=== PATIENT | female | born 1940 | race Caucasian/White ===

== ENCOUNTER 2016-12-02 21:14 | Inpatient (IN) | payer MEDICARE, OTHER ==
[~2016-12-02] VITALS: Ht 149.9 cm; Wt 55.8 kg
[2016-12-02] MEDS ORDERED: CLON1TAB4 PO (21:43)
[2016-12-02] MEDS ORDERED: TRAM50TA2 PO (21:44)
[2016-12-02] MEDS ORDERED: ENAL20TA70 PO (21:44)
[2016-12-02] MEDS ORDERED: EZET1TAB31 PO (21:44)
[2016-12-02] MEDS ORDERED: GEMF600T3 PO (21:44)
[2016-12-02] MEDS ORDERED: IBUP-1957 PO (21:44)
[2016-12-02] MEDS ORDERED: QUET200T PO (21:44)
[2016-12-02 21:55] LABS: BASOPHILS % (AUTO) 0.4 % (0.0-2.0); EOSINOPHILS # (AUTO) 0.1 K/uL (0.0-0.7); EOSINOPHILS % (AUTO) 1.1 % (0.0-7.0); HEMATOCRIT 31.7 % (37-47); HEMOGLOBIN 10.4 G/DL (12.0-16.0); LYMPHOCYTES # (AUTO) 0.6 K/UL (0.8-4.8); LYMPHOCYTES % (AUTO) 8.6 % (20.5-51.5); MEAN CORPUSCULAR HEMOGLOBIN 31.8 UUG (27.0-31.0); MEAN CORPUSCULAR HGB CONC 33 g/dL (32.0-37.0); MEAN CORPUSCULAR VOLUME 96.5 FL (81.0-99.0); MONOCYTES # (AUTO) 0.4 K/UL (0.1-1.30); MONOCYTES % (AUTO) 5.7 % (0.0-11.0); NEUTROPHILS % (AUTO) 84.2 % (38.5-71.5); PLATELET COUNT (AUTO) 182 K/UL (150-450); RED BLOOD CELL COUNT(AUTO) 3.28 MIL/UL (4.2-5.4); WHITE BLOOD COUNT (AUTO) 7.1 K/UL (4.0-11.2)
[2016-12-02 21:59] LABS: CARBON DIOXIDE 28 mmol/L (21-32); CHLORIDE 104 mmol/L (98-107); GLUCOSE 137 mg/dL (74-106); UREA NITROGEN, BLOOD 38 mg/dL (7-18)
[2016-12-02 22:04] LABS: ALANINE AMINOTRANSFERASE 44 U/L (14-59); ALKALINE PHOSPHATASE 73 U/L (50-136); ASPARTATE AMINOTRANSFERASE 60 U/L (15-37); BILIRUBIN,DIRECT 0.2 mg/dL (0.0-0.2); BILIRUBIN,TOTAL 0.6 mg/dL (0.2-1.0); LIPASE 114 U/L (73-393); TOTAL PROTEIN, SERUM 6.9 g/dL (6.4-8.2)
[2016-12-02 22:18] LABS: *BILIRUBIN,URIN NEGATIVE (NEGATIVE); *BLOOD, URINE NEGATIVE (NEGATIVE); *CLARITY,URINE CLEAR (CLEAR); *COLOR,URINE YELLOW (YELLOW); *KETONES,URINE NEGATIVE (NEGATIVE); *PROTEIN,URINE NEGATIVE (NEGATIVE); *UROBILINOGEN,URINE 0.2 E.U./dl (NORMAL); LEUKOCYTE ESTERASE ,URINE NEGATIVE (NEGATIVE); NITRITE, URINE NEGATIVE (NEGATIVE); UGLUCOSE NEGATIVE (NEGATIVE)
[2016-12-02 22:27] LABS: SQUAMOUS EPITHELIAL CELL,UR FEW /HPF (NONE SEEN); WBC,URINE 0-3 /HPF (0-3)
[2016-12-02 22:28] LABS: MUCUS,URINE FEW /LPF (0-FEW)
--- NOTE | 2016-12-02 22:29 | NUR ---
Velasco Cath intact and patent, aseptic technique used per facility protocol. No distress noted/no complaint of pain noted. Noted clear , yellow urine with 1050ml output.
[2016-12-02] MEDS ORDERED: diphenhydrAMINE 50 MG/1 ML VIAL IM ONE (23:30)
[2016-12-02] MEDS ORDERED: LORAZEPAM 2 MG/1 ML VIAL IM ONE (23:30)
[2016-12-02] MEDS ORDERED: HALOPERIDOL LACTATE 5 MG/1 ML VIAL IM ONE (23:30)
--- NOTE | 2016-12-02 23:40 | NUR ---
Umana catheter removed by patient @ 5583. aware, per Dr Sims, no need to reinsert at this time. Patient to remain without umana catheter. No signs of injury noted from F/C removal, no complaint of pain, no behavioral signs/symptoms of pain noted.
[2016-12-02] MEDS ORDERED: HALOPERIDOL LACTATE 5 MG/1 ML VIAL ONE (23:44)
[2016-12-02] MEDS ORDERED: diphenhydrAMINE 50 MG/1 ML VIAL ONE (23:44)
[2016-12-02] MEDS ORDERED: LORAZEPAM 2 MG/1 ML VIAL ONE (23:44)
--- NOTE | 2016-12-03 00:45 | NUR ---
Panel call placed. Call back from Dr Beach pending.
--- NOTE | 2016-12-03 00:58 | NUR ---
Note heather in EDM - 12/03/16 at 0116 by VANCE Patient discharged to home in stable conditon. Written and verbal after care instructions given. Patient/Father verbalizes understanding of instructions. Patient carried by father. No further distress noted. All belongings taken with patient.
[2016-12-03] MEDS ORDERED: diphenhydrAMINE 50 MG/1 ML VIAL IM ONE (01:45)
[2016-12-03] MEDS ORDERED: HALOPERIDOL LACTATE 5 MG/1 ML VIAL IM ONE (01:45)
[2016-12-03] MEDS ORDERED: LORAZEPAM 2 MG/1 ML VIAL IM ONE (01:45)
[2016-12-03] MEDS ORDERED: LORAZEPAM 2 MG/1 ML VIAL ONE (01:55)
[2016-12-03] MEDS ORDERED: diphenhydrAMINE 50 MG/1 ML VIAL ONE (01:55)
[2016-12-03] MEDS ORDERED: HALOPERIDOL LACTATE 5 MG/1 ML VIAL ONE (01:55)
--- NOTE | 2016-12-03 02:08 | NUR ---
Pt. admitted to MHU , under care of Dr. Kenyon/Dr Pittman. Dx: Psychosis. On 5150 hold for [employer]. Belongs List completed. All belongings sent to MHU with patient.
[2016-12-03 02:36] VITALS: BP 101/65
[2016-12-03] MEDS ORDERED: ACETAMINOPHEN 325 MG TABLET PO PRN (02:45)
[2016-12-03] MEDS ORDERED: MAG HYDROX/AL HYDROX/SIMETH 30 ML LIQUID UDC PO PRN (02:45)
--- NOTE | 2016-12-03 03:20 | NUR ---
GPS: Admitted to unit earlier a 76 yr.old female under the care of / in fair condition. Pt.is on a 72 hour hold for GD. Pt.was reported by her neighbors to be wandering naked in her neighborhood.Also has been non-compliant with her meds. Pt.arrived on the unit via gurney,sedated due to multiple IM's in the E.R. Pt.was arousable,confused but in no apparent distress. Belongings list completed. Skin assessment done. Safe environment provided. Will continue to monitor.
[2016-12-03] MEDS ORDERED: POTASSIUM CHLORIDE 20 MEQ TAB.PRT.SR PO ONE (05:45)
[2016-12-03 07:30] VITALS: BP 121/61
[2016-12-03 16:10] VITALS: BP 121/61
[2016-12-03] MEDS ORDERED: IBUPROFEN 800 MG TABLET PO PRN (16:15)
[2016-12-03] MEDS ORDERED: TRAMADOL HCL 50 MG TABLET PO PRN (16:15)
[2016-12-03] MEDS ORDERED: MAGNESIUM HYDROXIDE 30 ML LIQUID UDC PO ONE (16:15)
[2016-12-03] MEDS ORDERED: Medication Not On Formulary EA (Enalapril Maleate (Vasotec) 20 MG) PO SCH (17:00)
[2016-12-03] MEDS ORDERED: GEMFIBROZIL 600 MG TABLET PO SCH ×2 (17:00→21:00)
[2016-12-03 17:49] VITALS: BP 100/61
[2016-12-03 20:31] VITALS: BP 121/64
[2016-12-03] MEDS: ENALAPRIL 10 MG TABLET PO SCH (20:42)
[2016-12-03] MEDS: DOCUSATE SODIUM 100 MG CAPSULE PO SCH (20:43)
[2016-12-03] MEDS: EZETIMIBE 10 MG TABLET PO SCH (20:43)
[2016-12-03] MEDS: SIMVASTATIN 40 MG TABLET PO SCH (20:43)
[2016-12-03] MEDS: OLANZAPINE ZYDIS 5 MG TAB.RAPDIS PO SCH (20:45)
[2016-12-03] MEDS: MAGNESIUM HYDROXIDE 30 ML LIQUID UDC PO PRN (20:54)
[2016-12-03] MEDS: TEMAZEPAM 7.5 MG CAPSULE PO PRN (22:59)
[2016-12-04 07:30] VITALS: BP 139/85
[2016-12-04] MEDS: ENALAPRIL 10 MG TABLET PO SCH ×2 (08:24→20:03)
[2016-12-04] MEDS: DOCUSATE SODIUM 100 MG CAPSULE PO SCH ×2 (08:24→20:03)
[2016-12-04 08:42] LABS: CARBON DIOXIDE 30 mmol/L (21-32); CHLORIDE 110 mmol/L (98-107); CREATININE 0.8 mg/dL (0.6-1.3); GLUCOSE 103 mg/dL (74-106); UREA NITROGEN, BLOOD 28 mg/dL (7-18)
[2016-12-04] MEDS ORDERED: Medication Not On Formulary EA (Ezetimibe/Simvastatin (Vytorin 10-40 Mg Tablet) 1 TAB) PO SCH (09:00)
[2016-12-04 09:17] LABS: BASOPHILS % (AUTO) 0.3 % (0.0-2.0); EOSINOPHILS # (AUTO) 0.1 K/uL (0.0-0.7); EOSINOPHILS % (AUTO) 1.1 % (0.0-7.0); HEMATOCRIT 30.7 % (37-47); HEMOGLOBIN 10.4 G/DL (12.0-16.0); LYMPHOCYTES # (AUTO) 1.3 K/UL (0.8-4.8); LYMPHOCYTES % (AUTO) 20.7 % (20.5-51.5); MEAN CORPUSCULAR HEMOGLOBIN 32.5 UUG (27.0-31.0); MEAN CORPUSCULAR HGB CONC 34 g/dL (32.0-37.0); MONOCYTES # (AUTO) 0.5 K/UL (0.1-1.30); MONOCYTES % (AUTO) 7.2 % (0.0-11.0); NEUTROPHILS # (AUTO) 4.4 K/UL (1.8-8.9); NEUTROPHILS % (AUTO) 70.7 % (38.5-71.5); PLATELET COUNT (AUTO) 153 K/UL (150-450); WHITE BLOOD COUNT (AUTO) 6.3 K/UL (4.0-11.2)
[2016-12-04] MEDS: CLONAZEPAM 0.5 MG TABLET PO PRN ×2 (10:02→18:29)
[2016-12-04 15:15] VITALS: BP 130/74
[2016-12-04] MEDS: OLANZAPINE ZYDIS 5 MG TAB.RAPDIS PO SCH (20:02)
[2016-12-04] MEDS: SIMVASTATIN 40 MG TABLET PO SCH (20:03)
[2016-12-04] MEDS: EZETIMIBE 10 MG TABLET PO SCH (20:03)
[2016-12-04 20:10] VITALS: BP 169/77
--- NOTE | 2016-12-04 20:23 | NUR ---
pt received in a chair near the nurses station, confused but pleasant, denies pain/si/hi, no distress noted, will continue to monitor closely.
--- NOTE | 2016-12-04 21:50 | NUR ---
pt is awake, anxious and restless, sleeping med given as ordered, and assisted back to bed, will continue to monitor.
[2016-12-04] MEDS: TEMAZEPAM 7.5 MG CAPSULE PO PRN (21:52)
--- NOTE | 2016-12-04 23:00 | NUR ---
pt still awake, crying and waking up her room mate, non redirectable at this time, pt assisted back to izzy chair, will continue to monitor.
--- NOTE | 2016-12-05 01:30 | NUR ---
pt still awake, anxious and restless, klonopin prn given as ordered, will continue to monitor.
[2016-12-05] MEDS: CLONAZEPAM 0.5 MG TABLET PO PRN ×2 (01:34→08:47)
--- NOTE | 2016-12-05 06:00 | NUR ---
pt assisted with shower, sleeping in the izzy chair near the nurses station, will continue to monitor.
[2016-12-05 07:30] VITALS: BP 158/89
[2016-12-05] MEDS: DOCUSATE SODIUM 100 MG CAPSULE PO SCH ×2 (08:15→20:26)
[2016-12-05] MEDS: ENALAPRIL 10 MG TABLET PO SCH ×2 (08:16→20:27)
[2016-12-05 15:16] VITALS: BP 180/89
[2016-12-05] MEDS: MAGNESIUM HYDROXIDE 30 ML LIQUID UDC PO PRN (15:33)
[2016-12-05 20:00] VITALS: BP 142/86
[2016-12-05] MEDS: SIMVASTATIN 40 MG TABLET PO SCH (20:26)
[2016-12-05] MEDS: EZETIMIBE 10 MG TABLET PO SCH (20:26)
[2016-12-05] MEDS: OLANZAPINE ZYDIS 5 MG TAB.RAPDIS PO SCH (20:26)
[2016-12-05] MEDS ORDERED: IBUPROFEN 800 MG TABLET PO PRN (23:00)
[2016-12-06] MEDS: TEMAZEPAM 7.5 MG CAPSULE PO PRN (00:55)
--- NOTE | 2016-12-06 06:46 | NUR ---
Patient is up in a izzy chair. Continent. No BM during the shift. continue with Labile behavior. Crying at times, then laughing at times. No SI or HI at this time. compliant with medication. we will continue to monitor.
[2016-12-06 07:30] VITALS: BP 155/79
[2016-12-06] MEDS ORDERED: IBUPROFEN 400 MG TABLET PO PRN ×2 (08:00)
[2016-12-06] MEDS: DOCUSATE SODIUM 100 MG CAPSULE PO SCH ×2 (08:20→20:16)
[2016-12-06] MEDS: METOPROLOL TARTRATE 25 MG TABLET PO SCH ×2 (08:20→20:15)
[2016-12-06] MEDS: ENALAPRIL 10 MG TABLET PO SCH ×2 (08:20→20:15)
[2016-12-06] MEDS ORDERED: CLONIDINE HCL 0.1 MG TABLET PO PRN (10:00)
[2016-12-06] MEDS: CLONAZEPAM 0.5 MG TABLET PO PRN ×2 (11:05→16:11)
[2016-12-06] MEDS ORDERED: TEMAZEPAM 15 MG CAPSULE PO PRN (14:00)
[2016-12-06] MEDS ORDERED: TEMAZEPAM 7.5 MG CAPSULE PO PRN (14:00)
--- NOTE | 2016-12-06 15:37 | NUR ---
Initial discharge instructions: The patient resides at [[address] [place] [id number]] independently. SW spoke with the patient's daughter Arminda Thomas who stated that she is open to short term SNF placement for the patient. SW will speak with patient, family, and MD regarding most appropriate discharge plan. SS will form a safe and proper discharge.
[2016-12-06] MEDS ORDERED: BISACODYL 10 MG SUPP.RECT RC PRN (15:45)
[2016-12-06] MEDS ORDERED: MAGNESIUM HYDROXIDE 30 ML LIQUID UDC PO ONE (15:45)
[2016-12-06 16:00] VITALS: BP 115/73
--- NOTE | 2016-12-06 16:35 | NUR ---
NSG/GPS Patient first observed awake in hallway with disheveled appearance, unkempt. Patient appeared confused oriented to name otherwise labile mood, unpredictable calm one minute insulting staff the next in addition to exhibit bizarre behavior ie: disrobing and touching self. Patient compliant with medication with staff prompting. Observed in izzy-chair hitting herself, talking to self hostile towards staff on approach and when redirected. One time order administered as ordered, will monitor outcome. Will continue to monitor for safety. Last observed awake in hallway.
[2016-12-06] MEDS: SIMVASTATIN 40 MG TABLET PO SCH (20:15)
[2016-12-06] MEDS: EZETIMIBE 10 MG TABLET PO SCH (20:16)
[2016-12-06 20:29] VITALS: BP 148/88
[2016-12-06] MEDS ORDERED: OLANZAPINE ZYDIS 5 MG TAB.RAPDIS PO SCH (21:00)
--- NOTE | 2016-12-06 21:11 | NUR ---
PATIENT RECEIVE UP IN NIELS CHAIR SECURED. PATIENT ALERT/ORIENTED X1 NAME ONLY. PATIENT CONFUSED, DISORGANIZED. PATIENT HAS PERIODS OF LAUGHING, CRYING, AND LABILE COOPERATIVE WITH REDIRECTION. PATIENT COMPLAINT WITH MEDICATION. NO VISUAL OR AUDITORY HALLUCINATIONS NOTED AT THIS TIME, WILL CONTINUE TO MONITOR. NO AGGRESSIVE OR COMBATIVE BEHAVIOR NOTED, WILL CONTINUE TO MONITOR.
[2016-12-07] MEDS: CLONAZEPAM 0.5 MG TABLET PO PRN ×2 (02:09→15:29)
--- NOTE | 2016-12-07 02:48 | NUR ---
PATIENT WOKE UP ANXIOUS AND RESTLESS PUNCH FIST TO HAND, DISHEVELED BIZARRE BEHAVIOR. KLONOPIN 0.25 MG GIVEN ORDERED.
[2016-12-07 07:30] VITALS: BP 107/61
[2016-12-07 07:31] LABS: BASOPHILS % (AUTO) 0.5 % (0.0-2.0); EOSINOPHILS # (AUTO) 0.2 K/uL (0.0-0.7); EOSINOPHILS % (AUTO) 3.4 % (0.0-7.0); HEMATOCRIT 31.2 % (37-47); HEMOGLOBIN 10.5 G/DL (12.0-16.0); LYMPHOCYTES # (AUTO) 1.6 K/UL (0.8-4.8); LYMPHOCYTES % (AUTO) 26.5 % (20.5-51.5); MEAN CORPUSCULAR HEMOGLOBIN 32.6 UUG (27.0-31.0); MEAN CORPUSCULAR HGB CONC 34 g/dL (32.0-37.0); MEAN CORPUSCULAR VOLUME 97.1 FL (81.0-99.0); MONOCYTES # (AUTO) 0.5 K/UL (0.1-1.30); MONOCYTES % (AUTO) 7.8 % (0.0-11.0); NEUTROPHILS # (AUTO) 3.8 K/UL (1.8-8.9); NEUTROPHILS % (AUTO) 61.8 % (38.5-71.5); PLATELET COUNT (AUTO) 152 K/UL (150-450); RED BLOOD CELL COUNT(AUTO) 3.21 MIL/UL (4.2-5.4); WHITE BLOOD COUNT (AUTO) 6.1 K/UL (4.0-11.2)
[2016-12-07 07:44] LABS: ALANINE AMINOTRANSFERASE 27 U/L (14-59); ALKALINE PHOSPHATASE 60 U/L (50-136); ASPARTATE AMINOTRANSFERASE 19 U/L (15-37); BILIRUBIN,TOTAL 0.6 mg/dL (0.2-1.0); CARBON DIOXIDE 32 mmol/L (21-32); CHLORIDE 104 mmol/L (98-107); GLUCOSE 106 mg/dL (74-106); PHOSPHOROUS 3.2 mg/dL (2.5-4.9); POTASSIUM 4.7 mmol/L (3.5-5.1); TOTAL PROTEIN, SERUM 6.6 g/dL (6.4-8.2); UREA NITROGEN, BLOOD 23 mg/dL (7-18)
[2016-12-07 07:56] LABS: THYROID STIMULATING HORMONE 1.887 mIU/mL (0.358-3.740)
[2016-12-07] MEDS: DOCUSATE SODIUM 100 MG CAPSULE PO SCH (08:16)
[2016-12-07] MEDS: ENALAPRIL 10 MG TABLET PO SCH (09:00)
[2016-12-07] MEDS: METOPROLOL TARTRATE 25 MG TABLET PO SCH ×2 (09:59→15:32)
[2016-12-07 15:57] VITALS: BP 105/65
[2016-12-07 17:12] VITALS: BP 143/62
--- NOTE | 2016-12-07 17:30 | NUR ---
CALLED DR. ROGEL THRU ORACLE ENGINEER REGARDING PATIENT CHANGE OF CONDITION, MD WILL BE PAGED . AWAITING FOR MD TO RETURNED CALL.
--- NOTE | 2016-12-07 19:00 | NUR ---
1850 DR. ROGEL RETURNED CALL AND INFORMED ABOUT PATIENT HAVING HIGH FEVER IN SPITE OF GIVING TYLENOL. 1715 V/S T-101.1 HR-108 R-20 B/P 143/62. ORDERED TO TRANSFER TO MEDICAL FLOOR FOR HIGHER LEVEL OF CARE. 1909 NURSING SECURITY DIRECTOR FOR THE TRANSFER AND WAITING FOR MEDICAL BED. ENDORSED TO Payam ESCOBAR TO FOLLOW UP ROOM NO AND TO TRANSFER PATIENT.
--- NOTE | 2016-12-07 19:50 | NUR ---
GPS: TRANSFERRED PATIENT TO 2ND FLOOR MED SURG ,via izzy chair. UNDER Dr. rainey and for dx: fever. a/o x1 confused. b/p 96/52 temp 102.0 resp 17 sat 92% in room air,pulse 98. no c/o pain or discomfort this time. report given to [facility] charge nurse nurse.
--- NOTE | 2016-12-07 20:24 | NUR ---
PT ASSISTED TO THE REST ROOM, HAD A BOWEL MOVEMENT. PT DISCHARGED TO MED SURG UNIT WITH ALL BELONGINGS AND ORIGINAL 14 DAY HOLD, DX: FEVER.
[2016-12-07] MEDS ORDERED: OLANZAPINE ZYDIS 5 MG TAB.RAPDIS PO SCH (21:00)
[2016-12-08] MEDS ORDERED: ACET-2154 PO (17:08)
[2016-12-08] MEDS ORDERED: DULCOLAX 10MG SUPP (17:10)
[2016-12-08] MEDS ORDERED: CLON0.1T PO (17:13)
[2016-12-08] MEDS ORDERED: DOCU-141 PO (17:14)
[2016-12-08] MEDS ORDERED: EZET10TA13 PO (17:15)
[2016-12-08] MEDS ORDERED: ENAL10TA PO (17:15)
[2016-12-08] MEDS ORDERED: IBUP-1953 PO (17:17)
[2016-12-08] MEDS ORDERED: MAG30ORA PO (17:18)
[2016-12-08] MEDS ORDERED: MAGN400O6 PO (17:19)
[2016-12-08] MEDS ORDERED: METO25TA6 PO (17:19)
[2016-12-08] MEDS ORDERED: SIMV40TA2 PO (17:20)
== END 2016-12-07 20:31 | disposition short-term general hospital (02) | DRG 885 ==
LOC: ER 21:21 → GPS 12-03 01:41
PROVIDERS: ADMIT Psychiatry & Neurology Psychiatry; ATTEND Internal Medicine
DX: F29 Unspecified psychosis not due to a substance or known physiological condition (principal); N17.0 Acute kidney failure with tubular necrosis; N13.30 Unspecified hydronephrosis; F03.91 Unspecified dementia, unspecified severity, with behavioral disturbance; E87.0 Hyperosmolality and hypernatremia; F20.9 Schizophrenia, unspecified; K59.09 Other constipation; E78.5 Hyperlipidemia, unspecified; E87.6 Hypokalemia; G89.29 Other chronic pain; M19.90 Unspecified osteoarthritis, unspecified site; D50.9 Iron deficiency anemia, unspecified; K80.20 Calculus of gallbladder without cholecystitis without obstruction; I77.1 Stricture of artery; I11.9 Hypertensive heart disease without heart failure; Z91.83 Wandering in diseases classified elsewhere; I45.81 Long QT syndrome; M43.16 Spondylolisthesis, lumbar region; Z91.19 Patient's noncompliance with other medical treatment and regimen
CPT/HCPCS: 36415; 51702; 70030-TC; 71010; 83605; 83690; 83735; 84100; 84443; 85025; 87040; 87086; 93005; 97116; 97161; 97530; J1200; J1630; J2060

== ENCOUNTER 2016-12-07 20:55 | Inpatient (IN) | payer MEDICARE, OTHER ==
[~2016-12-07] VITALS: Ht 149.9 cm; Wt 59.4 kg
[2016-12-07] MEDS: PIPERACILLIN/TAZOBACTAM/D5W 3.375 G in PREMIXED 1 EACH IV SCH (00:48)
[2016-12-07 20:15] VITALS: BP 93/41
--- NOTE | 2016-12-07 20:30 | NUR ---
PT RECEIVED FROM MHU DIAGNOSIS FEVER. PT IS AOX1 CONFUSED/DISORIENTED. ACCOMPANIED BY SITTER AND MHU STAFF. PT HAS REDNESS TO RIGHT SIDE OF HIP AND HEALING SCAB ON RIGHT CHIN. LUNGS CLEAR THROUGH OUT WITH AUSCULTATION. NO ACUTE DISTRESS NOTED. SAFETY MEASURES MAINTAINED.
[~2016-12-07 20:55] MED LIST: ENAL20TA70 PO; EZET1TAB31 PO; GEMF600T3 PO; IBUP-1957 PO; TRAM50TA2 PO
[2016-12-07] MEDS ORDERED: ACETAMINOPHEN 325 MG TABLET PO PRN ×2 (22:15)
[2016-12-07] MEDS ORDERED: TRAMADOL HCL 50 MG TABLET PO PRN (22:15)
[2016-12-07] MEDS ORDERED: ONDANSETRON 4 MG/2 ML VIAL IV PRN (22:15)
[2016-12-07] MEDS ORDERED: IBUPROFEN 400 MG TABLET PO PRN (22:15)
[2016-12-07] MEDS ORDERED: CLONIDINE HCL 0.1 MG TABLET PO PRN (22:15)
[2016-12-07] MEDS ORDERED: MAG HYDROX/AL HYDROX/SIMETH 30 ML LIQUID UDC PO PRN (22:15)
[2016-12-07] MEDS ORDERED: MAGNESIUM HYDROXIDE 30 ML LIQUID UDC PO PRN (22:15)
[2016-12-07] MEDS ORDERED: TEMAZEPAM 15 MG CAPSULE PO PRN (22:15)
--- NOTE | 2016-12-07 23:00 | NUR ---
pt awake but restless at this time, unable to insert IV for IV fluids, will notify .
[2016-12-07] MEDS: ZOLPIDEM 5 MG TABLET PO PRN (23:18)
[2016-12-07] MEDS ORDERED: ZOLPIDEM 5 MG TABLET ONE (23:23)
[2016-12-07] MEDS ORDERED: ACETAMINOPHEN 325 MG TABLET ONE (23:24)
--- NOTE | 2016-12-07 23:30 | NUR ---
pt restless and agitated, unable to insert IV. Awaiting MD call back for medication for agitation.
--- NOTE | 2016-12-07 23:40 | NUR ---
PT IS CONFUSED AND DISORIENTED. OBSERVED RESTLESS AND ANXIOUS, SQUIRMING IN BED UNABLE TO BE REDIRECTED. MD WAS NOTIFIED AND ORDERED GEODON 5MG IM ONE TIME ORDER.
[2016-12-08] VITALS (40 sets, daily range): BP systolic 46–146; BP diastolic 23–71
--- NOTE | 2016-12-08 00:05 | NUR ---
PT OBSERVED SLEEPING AND SNORING, GEODON IM NOT GIVEN AT THIS TIME, WILL NOTIFY .
[2016-12-08] MEDS ORDERED: ZIPRASIDONE 20 MG CAPSULE PO SCH ×2 (00:15→00:30)
[2016-12-08] MEDS ORDERED: PIPERACILLIN SODIUM/TAZO 3.375 GM VIAL ONE (00:16)
[2016-12-08] MEDS ORDERED: ZIPRASIDONE MESYLATE 20 MG VIAL IM ONE ×2 (00:30→00:34)
[2016-12-08] MEDS: IV NS 1000 ML 1,000 ML IV PRN ×2 (00:47→19:06)
--- NOTE | 2016-12-08 05:30 | NUR ---
PT AWAKE AND CONFUSED, BECAME AGITATED AND AGGRESSIVE, GIVEN THE GEODON 5MG ONE TIME ORDER.
--- NOTE | 2016-12-08 06:30 | NUR ---
pt observed restless, agitated and anxious, given geodon 5mg IM one time as ordered. 1:1 sitter at bedside. will continue to monitor for safety.
--- NOTE | 2016-12-08 06:40 | NUR ---
PER SITTER PT HAD X4 LOOSE STOOLS. STOOL COLLECTED TO RULE OUT C-DIFF. PT TOLERATING ZOSYN IV WELL. NO ACUTE DISTRESS NOTED. PT SOMEWHAT CALM AT THIS TIME. 1:1 SITTER AT BEDSIDE.
[2016-12-08] MEDS: PIPERACILLIN/TAZOBACTAM/D5W 3.375 G in PREMIXED 1 EACH IV SCH (06:50)
[2016-12-08] MEDS ORDERED: PANTOPRAZOLE SODIUM 40 MG TABLET.DR PO SCH ×2 (07:00→17:00)
[2016-12-08 07:22] LABS: ALANINE AMINOTRANSFERASE 25 U/L (14-59); ALKALINE PHOSPHATASE 179 U/L (50-136); ASPARTATE AMINOTRANSFERASE 28 U/L (15-37); CARBON DIOXIDE 27 mmol/L (21-32); CHLORIDE 102 mmol/L (98-107); GLUCOSE 107 mg/dL (74-106); MAGNESIUM 1.4 mg/dL (1.8-2.4); PHOSPHOROUS 3.6 mg/dL (2.5-4.9); POTASSIUM 4.1 mmol/L (3.5-5.1); TOTAL PROTEIN, SERUM 6.3 g/dL (6.4-8.2); UREA NITROGEN, BLOOD 32 mg/dL (7-18)
[2016-12-08 07:29] LABS: CREATININE 1.8 mg/dL (0.6-1.3)
--- NOTE | 2016-12-08 07:55 | NUR ---
Lactic acid of 3.[address] Pittman. No orders at this time.
[2016-12-08] MEDS: METOPROLOL TARTRATE 25 MG TABLET PO SCH ×2 (09:00→20:21)
[2016-12-08] MEDS ORDERED: VANCOMYCIN IV 1 G in PREMIXED 0 EACH IV ONE (09:00)
[2016-12-08] MEDS ORDERED: ENALAPRIL 10 MG TABLET PO SCH (09:00)
[2016-12-08 09:15] LABS: BASOPHILS % (AUTO) 0.1 % (0.0-2.0); EOSINOPHILS % (AUTO) 0.1 % (0.0-7.0); HEMATOCRIT 27.5 % (37-47); HEMOGLOBIN 8.9 G/DL (12.0-16.0); LYMPHOCYTES # (AUTO) 0.2 K/UL (0.8-4.8); LYMPHOCYTES % (AUTO) 2.7 % (20.5-51.5); MEAN CORPUSCULAR HEMOGLOBIN 31.4 UUG (27.0-31.0); MEAN CORPUSCULAR HGB CONC 33 g/dL (32.0-37.0); MEAN CORPUSCULAR VOLUME 96.4 FL (81.0-99.0); MONOCYTES % (AUTO) 0.2 % (0.0-11.0); NEUTROPHILS # (AUTO) 7.1 K/UL (1.8-8.9); NEUTROPHILS % (AUTO) 96.9 % (38.5-71.5); PLATELET COUNT (AUTO) 104 K/UL (150-450); RED BLOOD CELL COUNT(AUTO) 2.85 MIL/UL (4.2-5.4); WHITE BLOOD COUNT (AUTO) 7.3 K/UL (4.0-11.2)
--- NOTE | 2016-12-08 09:45 | NUR ---
Lactic acid of 4.2 reported to as well as low BP of 84/48 with dizziness, temp of 99.5 and continued diarrhea. Stool sample sent for culture. Results pending.
[2016-12-08 09:46] LABS: BAND % (MANUAL) 17 % (0-10); LYMPHOCYTES % (MANUAL) 3 % (20-40); MONOCYTES % (MANUAL) 3 % (2-10); NEUTROPHILS % (MANUAL) 77 % (42-75)
[2016-12-08] MEDS ORDERED: MAGNESIUM SULFATE/D5W 100 ML IV SCH (10:00)
[2016-12-08] MEDS: DOCUSATE SODIUM 100 MG CAPSULE PO SCH ×3 (10:08→21:19)
[2016-12-08 10:14] LABS: IRON, SERUM 44 ug/dL (50-175)
--- NOTE | 2016-12-08 10:40 | NUR ---
Started sepsis protocol intiated per MD orders. Patient also placed on 4 liters nasal cannula for desaturation 65-70 on room air.
[2016-12-08] MEDS ORDERED: IV NORMAL SALINE 250 ML IV ONE (11:15)
[2016-12-08] MEDS ORDERED: IV NS 1000 ML 1,000 ML IV ONE (11:15)
[2016-12-08] MEDS ORDERED: IV NORMAL SALINE 500 ML IV ONE (11:15)
[2016-12-08 11:34] LABS: *OCCULT BLOOD STOOL NEGATIVE (NEGATIVE)
[2016-12-08] MEDS ORDERED: NS IV ONE (11:45)
[2016-12-08] MEDS ORDERED: LEVALBUTEROL HCL NEB 0.63 MG/3 ML NEBU NEB PRN (12:15)
[2016-12-08] MEDS ORDERED: HEPARIN/D5W DRIP 500 ML IV PRN (13:15)
--- NOTE | 2016-12-08 13:51 | NUR ---
Patient being switched over to JOSE status per MD orders. Patient lab results show elevated troponin of 1.388. Patient to be started on Heparin drip. Will give report to
--- NOTE | 2016-12-08 14:11 | NUR ---
Dr. Pittman gave order to transfer to ICU and start Neosynephrine drip. Diagnosis--Sepsis with septic shock and ACS.
--- NOTE | 2016-12-08 14:33 | NUR ---
At this time patient brought in from room 217. sbp in the 70's patient confused oriented to name only. As reported troponin and lactic acid elevated. see labs. Orders to start Neosynephrine drip as well as to start Heparin drip for ACS endorsed by Sarah GR. Order clarify and confirmed with Dr. Faustin.
--- NOTE | 2016-12-08 14:55 | NUR ---
Orders to insert umana catheter, and to insert PICC line received.
[2016-12-08] MEDS: PHENYLEPHRINE IV 80 MG in IV DEXTROSE 5% 250 ML IV PRN ×2 (15:00→21:00)
[2016-12-08] MEDS: MAGNESIUM SULFATE/D5W 100 ML IV SCH ×2 (15:13→16:11)
[2016-12-08] MEDS: PIPERACILLIN/TAZOBACTAM/D5W 2.25 G in PREMIXED 1 EACH IV SCH ×2 (15:21→21:21)
--- NOTE | 2016-12-08 15:32 | NUR ---
Clinical pharmacy note-Vancomycin dosing per pharmacy Subjective: To start Vancomycin dosing on this 76 year old patient for suspected infection Objective: BUN 32 Scr 1.8 WBC 7.3 Temp 98.5 Ht 4'11" WB 125 lbs Assessment/Plan: Since renal function is unstable, will dose random level. Vancomycin 1gram x1 was given today at 0900. Vancomycin random on order tomorrow am at 0600. Will follow the level for further dosing.
--- NOTE | 2016-12-08 15:56 | NUR ---
A call to Dr. Faustin before starting Heparin drip and no bolus orders received. also notified of total urine output of 2049 with specimen sent for lab.
[2016-12-08 16:17] LABS: *CREATININE,URINE 76.4 mg/dL (30-125); *URINE TOTAL PROTEIN RANDOM 17.4 mg/dL (<150/24HR)
[2016-12-08 16:30] LABS: *BILIRUBIN,URIN NEGATIVE (NEGATIVE); *BLOOD, URINE NEGATIVE (NEGATIVE); *CLARITY,URINE SLIGHTLY CLOUDY (CLEAR); *COLOR,URINE YELLOW (YELLOW); *KETONES,URINE NEGATIVE (NEGATIVE); *PROTEIN,URINE NEGATIVE (NEGATIVE); *UROBILINOGEN,URINE 0.2 E.U./dl (NORMAL); LEUKOCYTE ESTERASE ,URINE TRACE (NEGATIVE); NITRITE, URINE POSITIVE (NEGATIVE); PH,URINE 6.5 (5.0-8.0); UGLUCOSE NEGATIVE (NEGATIVE)
--- NOTE | 2016-12-08 16:30 | NUR ---
Dr. Faustin in the unit to assess patient and aware of pt's current condition.
[2016-12-08 16:43] LABS: BACTERIA,URINE MANY /HPF (NONE SEEN); RBC,URINE NONE SEEN /HPF (0-3); SQUAMOUS EPITHELIAL CELL,UR FEW /HPF (NONE SEEN); WBC,URINE 0-3 /HPF (0-3)
--- NOTE | 2016-12-08 17:00 | NUR ---
ID Carrington Santamaria in the unit to assess patient.
[2016-12-08] MEDS ORDERED: ACET-2154 PO (17:08)
[2016-12-08] MEDS ORDERED: DULCOLAX 10MG SUPP (17:10)
[2016-12-08] MEDS ORDERED: CLON0.1T PO (17:13)
[2016-12-08] MEDS ORDERED: DOCU-141 PO (17:14)
[2016-12-08] MEDS ORDERED: EZET10TA13 PO (17:15)
[2016-12-08] MEDS ORDERED: ENAL10TA PO (17:15)
[2016-12-08] MEDS ORDERED: IBUP-1953 PO (17:17)
[2016-12-08] MEDS ORDERED: MAG30ORA PO (17:18)
[2016-12-08] MEDS ORDERED: MAGN400O6 PO (17:19)
[2016-12-08] MEDS ORDERED: METO25TA6 PO (17:19)
[2016-12-08] MEDS ORDERED: SIMV40TA2 PO (17:20)
[2016-12-08] MEDS ORDERED: HEPARIN SODIUM,PORCINE 5,000 UNITS/ML VIAL IV PRN (17:30)
--- NOTE | 2016-12-08 18:38 | NUR ---
A call to Dr. Faustin to notified him that SBP still in the high 80's very low 90's. Awaiting call back.
[2016-12-08] MEDS: VANCOMYCIN FOR PO/GT/NG USE PO SCH ×2 (18:49→23:39)
[2016-12-08] MEDS: METRONIDAZOLE 500 MG/NS 100ML 500 MG in PREMIXED 1 EACH IV SCH (18:49)
[2016-12-08] MEDS ORDERED: NOREPINEPHRINE BITARTRATE 16 MG in IV DEXTROSE 5% 500 ML IV PRN (19:00)
--- NOTE | 2016-12-08 19:30 | NUR ---
Patient sleeping. NSR on monitor. Blood pressure stable on Neosynephrine drip at 280 mcg/min. 4L/min O2 via NC, RR and SpO2 WNL.PICC line to JIM, patent. Heparin running as ordered per protocol at 855 units/hr, PTT to be re-drawn at 2245. NS IVF running as ordered. Velasco in place, draining. SBAR report received from Dave Crowder RN. Will continue plan of care.
[2016-12-08] MEDS: EZETIMIBE 10 MG TABLET PO SCH (21:00)
--- NOTE | 2016-12-08 21:00 | NUR ---
Patient lethargic, unable to consume PO tablets.
[2016-12-08] MEDS: SIMVASTATIN 40 MG TABLET PO SCH (21:20)
--- NOTE | 2016-12-08 23:54 | NUR ---
aPTT in therapeutic range. No change in rate for Heparin drip per protocol.
[2016-12-09] VITALS (95 sets, daily range): BP systolic 74–139; BP diastolic 30–105
--- NOTE | 2016-12-09 01:00 | NUR ---
Previously lethargic, patient now more awake and very restless. Oriented to self and place. States she is comfortable and in no pain. Will continue to monitor.
[2016-12-09] MEDS: METRONIDAZOLE 500 MG/NS 100ML 500 MG in PREMIXED 1 EACH IV SCH ×3 (01:27→17:10)
[2016-12-09] MEDS: PHENYLEPHRINE IV 80 MG in IV DEXTROSE 5% 250 ML IV PRN ×2 (02:50→12:41)
[2016-12-09 05:14] LABS: ALANINE AMINOTRANSFERASE 39 U/L (14-59); ALKALINE PHOSPHATASE 67 U/L (50-136); ASPARTATE AMINOTRANSFERASE 49 U/L (15-37); BILIRUBIN,TOTAL 0.6 mg/dL (0.2-1.0); CARBON DIOXIDE 25 mmol/L (21-32); CHLORIDE 102 mmol/L (98-107); CREATINE KINASE, TOTAL 116 U/L (26-192); CREATININE 1.4 mg/dL (0.6-1.3); GLUCOSE 112 mg/dL (74-106); PHOSPHOROUS 4.1 mg/dL (2.5-4.9); POTASSIUM 2.9 mmol/L (3.5-5.1); TOTAL PROTEIN, SERUM 5.4 g/dL (6.4-8.2); UREA NITROGEN, BLOOD 31 mg/dL (7-18); VANCOMYCIN,RANDOM 5.1 ug/mL (18.0-26.0)
[2016-12-09 05:16] LABS: EOSINOPHILS # (AUTO) 0.5 K/uL (0.0-0.7); EOSINOPHILS % (AUTO) 1.6 % (0.0-7.0); HEMATOCRIT 25.1 % (37-47); HEMOGLOBIN 8.5 G/DL (12.0-16.0); LYMPHOCYTES # (AUTO) 1.2 K/UL (0.8-4.8); LYMPHOCYTES % (AUTO) 3.7 % (20.5-51.5); MEAN CORPUSCULAR HEMOGLOBIN 32.6 UUG (27.0-31.0); MEAN CORPUSCULAR HGB CONC 34 g/dL (32.0-37.0); MEAN CORPUSCULAR VOLUME 95.9 FL (81.0-99.0); MONOCYTES # (AUTO) 1.2 K/UL (0.1-1.30); MONOCYTES % (AUTO) 3.6 % (0.0-11.0); NEUTROPHILS # (AUTO) 30.7 K/UL (1.8-8.9); NEUTROPHILS % (AUTO) 91.1 % (38.5-71.5); PLATELET COUNT (AUTO) 111 K/UL (150-450); RED BLOOD CELL COUNT(AUTO) 2.62 MIL/UL (4.2-5.4)
[2016-12-09 05:22] LABS: WHITE BLOOD COUNT (AUTO) 33.6 K/UL (4.0-11.2)
[2016-12-09 06:12] LABS: BAND % (MANUAL) 18 % (0-10); EOSINOPHILS % (MANUAL) 3 % (0-8); LYMPHOCYTES % (MANUAL) 5 % (20-40); NEUTROPHILS % (MANUAL) 74 % (42-75)
[2016-12-09] MEDS: VANCOMYCIN FOR PO/GT/NG USE PO SCH ×3 (06:27→17:11)
[2016-12-09] MEDS: PIPERACILLIN/TAZOBACTAM/D5W 2.25 G in PREMIXED 1 EACH IV SCH ×3 (06:27→22:24)
--- NOTE | 2016-12-09 06:45 | NUR ---
Critically high PTT of 94.5 seconds. Heparin drip stopped for 60 mins per protocol then restarted at rate of 655 units/hr.
--- NOTE | 2016-12-09 07:00 | NUR ---
Patient is awake, restless. Oriented x2. Tmax of 99.7F. NSR. Hypotension managed with Neosynephrine, rate of 130 mcg/min. On heparin drip, per ACS protocol as ordered. Velasco intact, patent. Noted bowel movement x2, stool sent to lab as ordered. Skin care provided. Needs attended to. Call light within reach. SBAR report given to Dvae BENAVIDES RN
--- NOTE | 2016-12-09 07:52 | NUR ---
A call to Dr. Faustin to notify of severe itching. Order received. see orders.
[2016-12-09] MEDS: IV NS 1000 ML 1,000 ML IV PRN (08:10)
[2016-12-09] MEDS: diphenhydrAMINE 50 MG/1 ML VIAL IV PRN ×2 (08:10→15:05)
[2016-12-09] MEDS: PANTOPRAZOLE SODIUM 40 MG VIAL IV SCH (08:10)
[2016-12-09] MEDS: LORAZEPAM 2 MG/1 ML VIAL IV PRN ×2 (08:10→15:05)
[2016-12-09] MEDS: DOCUSATE SODIUM 100 MG CAPSULE PO SCH ×2 (08:11→20:17)
[2016-12-09] MEDS ORDERED: VANCOMYCIN IV 1 G in PREMIXED 0 EACH IV ONE (09:00)
[2016-12-09] MEDS ORDERED: DOCUSATE SODIUM 100 MG CAPSULE PO SCH (09:00)
[2016-12-09] MEDS ORDERED: ACETAMINOPHEN 650 MG SUPP.RECT RC PRN (12:00)
--- NOTE | 2016-12-09 13:27 | NUR ---
Dr. Ocampo in to examine patient.
[2016-12-09] MEDS ORDERED: ASPIRIN 81 MG TAB.CHEW PO SCH (13:45)
--- NOTE | 2016-12-09 14:01 | NUR ---
Dr. Herr in the unit to see patient, report given orders to dcd Heparin received. Addendum: 12/09/16 at 1405 by ROSALES BENAVIDES RN heparin stopped at this time.
[2016-12-09] MEDS: POTASSIUM CHLORIDE 50 ML IV SCH ×3 (14:36→16:34)
[2016-12-09] MEDS: ASPIRIN 300 MG RECTAL SUPP RC SCH (14:36)
--- NOTE | 2016-12-09 15:11 | NUR ---
Clinical pharmacy note-Vancomycin dosing per pharmacy Subjective: To continue Vancomycin dosing on this 76 year old patient for suspected infection Objective: BUN 31 Scr 1.4 WBC 33.6 Temp 99.8 Ht 4'11" WB 125 lbs Assessment/Plan: Since renal function is unstable and Scr seems to be resolving, will dose random level. Vancomycin 1gram x1 was given today at 0900. Vancomycin random on order tomorrow am at 0600. Will follow the level for further dosing.
[2016-12-09] MEDS: SIMVASTATIN 40 MG TABLET PO SCH (20:58)
[2016-12-09] MEDS: EZETIMIBE 10 MG TABLET PO SCH (20:58)
[2016-12-10] VITALS (57 sets, daily range): BP systolic 85–156; BP diastolic 35–90
[2016-12-10] MEDS: VANCOMYCIN FOR PO/GT/NG USE PO SCH ×5 (01:17→23:10)
[2016-12-10] MEDS: METRONIDAZOLE 500 MG/NS 100ML 500 MG in PREMIXED 1 EACH IV SCH ×3 (01:35→17:01)
[2016-12-10] MEDS: IV NS 1000 ML 1,000 ML IV PRN ×2 (04:01→23:11)
[2016-12-10] MEDS: PIPERACILLIN/TAZOBACTAM/D5W 2.25 G in PREMIXED 1 EACH IV SCH ×4 (05:55→23:10)
[2016-12-10 06:20] LABS: BASOPHILS % (AUTO) 0.1 % (0.0-2.0); EOSINOPHILS # (AUTO) 0.2 K/uL (0.0-0.7); HEMATOCRIT 26.4 % (37-47); HEMOGLOBIN 8.5 G/DL (12.0-16.0); LYMPHOCYTES # (AUTO) 1.2 K/UL (0.8-4.8); LYMPHOCYTES % (AUTO) 6.4 % (20.5-51.5); MEAN CORPUSCULAR HGB CONC 32 g/dL (32.0-37.0); MEAN CORPUSCULAR VOLUME 96.1 FL (81.0-99.0); MONOCYTES # (AUTO) 0.6 K/UL (0.1-1.30); MONOCYTES % (AUTO) 3.4 % (0.0-11.0); NEUTROPHILS # (AUTO) 16.7 K/UL (1.8-8.9); NEUTROPHILS % (AUTO) 89.1 % (38.5-71.5); PLATELET COUNT (AUTO) 101 K/UL (150-450); RED BLOOD CELL COUNT(AUTO) 2.74 MIL/UL (4.2-5.4)
[2016-12-10 06:25] LABS: WHITE BLOOD COUNT (AUTO) 18.7 K/UL (4.0-11.2)
[2016-12-10 06:26] LABS: ALANINE AMINOTRANSFERASE 41 U/L (14-59); ALKALINE PHOSPHATASE 59 U/L (50-136); ASPARTATE AMINOTRANSFERASE 41 U/L (15-37); BILIRUBIN,TOTAL 0.4 mg/dL (0.2-1.0); CARBON DIOXIDE 26 mmol/L (21-32); CHLORIDE 112 mmol/L (98-107); CREATININE 0.9 mg/dL (0.6-1.3); GLUCOSE 87 mg/dL (74-106); MAGNESIUM 1.7 mg/dL (1.8-2.4); PHOSPHOROUS 2.9 mg/dL (2.5-4.9); POTASSIUM 3.3 mmol/L (3.5-5.1); TOTAL PROTEIN, SERUM 4.7 g/dL (6.4-8.2); UREA NITROGEN, BLOOD 23 mg/dL (7-18); VANCOMYCIN,RANDOM 9.2 ug/mL (18.0-26.0)
[2016-12-10] MEDS: PHENYLEPHRINE IV 80 MG in IV DEXTROSE 5% 250 ML IV PRN (06:31)
[2016-12-10] MEDS: ASPIRIN 300 MG RECTAL SUPP RC SCH (08:00)
[2016-12-10] MEDS: PANTOPRAZOLE SODIUM 40 MG VIAL IV SCH (08:00)
[2016-12-10] MEDS: DOCUSATE SODIUM 100 MG CAPSULE PO SCH ×2 (08:00→20:43)
[2016-12-10] MEDS ORDERED: ALBUTEROL SULFATE 1.25 MG/3 ML NEBU NEB PRN (08:30)
[2016-12-10] MEDS: VANCOMYCIN IV 1 G in PREMIXED 0 EACH IV SCH (10:31)
[2016-12-10 11:19] LABS: BAND % (MANUAL) 18 % (0-10); EOSINOPHILS % (MANUAL) 2 % (0-8); LYMPHOCYTES % (MANUAL) 6 % (20-40); MONOCYTES % (MANUAL) 2 % (2-10); NEUTROPHILS % (MANUAL) 72 % (42-75)
--- NOTE | 2016-12-10 12:27 | NUR ---
Clinical pharmacy note-Vancomycin dosing per pharmacy Subjective: To continue Vancomycin dosing on this 76 year old patient for septic shock due to UTI and possible PNA (per ID note) Objective: BUN 23 Scr 0.9 WBC 18.7 Temp 98.3 Vancomycin random level: 9.2 (with am labs post vanco 1gm IVPB given on 12/10 at 0900) Ht 4'11" WB 125 lbs UC + enterococci pending sens Assessment/Plan: Since Scr is 0.9 today, Will start vancomycin 1gm IVPB q30hs for predicted vancomycin trough level of 16 mcg/ml at steady state. 1st dose was due today at 1000. Plan to draw vancomycin trough level before 4th dose of current regimen (level not yet ordered). Will monitor renal function & adjust the dose if needed. Will continue to follow.
--- NOTE | 2016-12-10 13:55 | NUR ---
A call from Microbiology with preliminary reports of Anaerobic bottles of blood cultures Negative Gram Rods " - Gram- Rods ID notified.
[2016-12-10] MEDS: MAGNESIUM SULFATE/D5W 100 ML IV SCH ×2 (14:06→15:00)
[2016-12-10] MEDS: POTASSIUM CHLORIDE 50 ML IV SCH ×2 (14:06→14:35)
--- NOTE | 2016-12-10 14:39 | NUR ---
DECISION SUPPORT MANAGER for Infectious disease in the unit to examine patient; full report given no orders received, also informed one more time of + microbiology results. She was also informed that results were notified to Dr. Shultz.
--- NOTE | 2016-12-10 18:13 | NUR ---
Dr. Herr in the unit to examine patient, report given.
--- NOTE | 2016-12-10 18:59 | NUR ---
Dr. Faustin in the unit to examine patient; full report given.
--- NOTE | 2016-12-10 20:00 | NUR ---
Pt awake, calm, watching TV. Inappropriate affect, laughing frequently and spontaneously. Pleasantly confused. Has been off vasopressor and BP monitored closely. NS infusing well thru PICC right arm. Velasco and flexiseal tube intact and patent. Started on mechanical soft diet. Able to swallow well with no signs of aspiration. Fall and safety precautions observed at all times. PM care rendered. Please see CCU flowsheet for full assessment and clinical data.
[2016-12-10] MEDS: SIMVASTATIN 40 MG TABLET PO SCH (20:43)
[2016-12-10] MEDS: EZETIMIBE 10 MG TABLET PO SCH (20:43)
[2016-12-10] MEDS: Z GUARD REMEDY PASTE 57 GM TUBE TOP PRN (23:11)
[2016-12-11] VITALS (20 sets, daily range): BP systolic 116–145; BP diastolic 50–80
[2016-12-11] MEDS: diphenhydrAMINE 50 MG/1 ML VIAL IV PRN (01:04)
[2016-12-11] MEDS: METRONIDAZOLE 500 MG/NS 100ML 500 MG in PREMIXED 1 EACH IV SCH ×3 (01:04→17:00)
--- NOTE | 2016-12-11 04:00 | NUR ---
Restless but not trying to get out of bed. At 0100, c/o gen. itching, scratching head and thighs and thus Benadryl IV given with some relief. Continues to watch TV show, refusing to have it turned off. AM care rendered, made comfortable. Safety and fall precautions maintained.
[2016-12-11 05:03] LABS: CARBON DIOXIDE 24 mmol/L (21-32); CHLORIDE 112 mmol/L (98-107); CREATININE 0.8 mg/dL (0.6-1.3); GLUCOSE 84 mg/dL (74-106); MAGNESIUM 1.7 mg/dL (1.8-2.4); POTASSIUM 3.1 mmol/L (3.5-5.1); UREA NITROGEN, BLOOD 17 mg/dL (7-18)
--- NOTE | 2016-12-11 06:00 | NUR ---
Uneventful night. Remains off vasopressor and VS stable. Barely slept tonight, preferred to watch TV program. Please see CCU flowsheet for trends and clinical data. No family visit or inquiries this shift.
[2016-12-11] MEDS: VANCOMYCIN FOR PO/GT/NG USE PO SCH ×4 (06:08→23:32)
[2016-12-11] MEDS: PIPERACILLIN/TAZOBACTAM/D5W 2.25 G in PREMIXED 1 EACH IV SCH ×3 (06:08→17:01)
--- NOTE | 2016-12-11 07:42 | NUR ---
Pt.A/A/Ox2 watching TV,no s/s of acute distress or pain noted.
[2016-12-11] MEDS: DOCUSATE SODIUM 100 MG CAPSULE PO SCH ×3 (08:06→21:23)
[2016-12-11] MEDS: PANTOPRAZOLE SODIUM 40 MG VIAL IV SCH (08:06)
[2016-12-11] MEDS: ASPIRIN 300 MG RECTAL SUPP RC SCH (08:06)
--- NOTE | 2016-12-11 09:38 | NUR ---
Clinical pharmacy note-Vancomycin dosing per pharmacy Subjective: To continue Vancomycin dosing on this 76 year old patient for septic shock due to UTI and possible PNA (per ID note) Objective: BUN 17 Scr 0.8 WBC 18.7 (12/10) Temp 98.8 Ht 4'11" WB 125 lbs UC + enterococci pending sens Assessment/Plan: Will continue vancomycin 1gm IVPB q30hs for predicted vancomycin trough level of 16 mcg/ml at steady state. 2nd dose will be due today at 1600. Plan to draw vancomycin trough level before 4th dose of current regimen (level not yet ordered). Will monitor renal function & adjust the dose if needed. Will continue to follow.
[2016-12-11 09:53] LABS: BASOPHILS # (AUTO) 0.2 K/uL (0.0-8.0); BASOPHILS % (AUTO) 2.1 % (0.0-2.0); EOSINOPHILS # (AUTO) 0.1 K/uL (0.0-0.7); EOSINOPHILS % (AUTO) 1.5 % (0.0-7.0); HEMATOCRIT 30.3 % (37-47); HEMOGLOBIN 9.8 G/DL (12.0-16.0); LYMPHOCYTES # (AUTO) 0.8 K/UL (0.8-4.8); LYMPHOCYTES % (AUTO) 8.5 % (20.5-51.5); MEAN CORPUSCULAR HEMOGLOBIN 30.5 UUG (27.0-31.0); MEAN CORPUSCULAR HGB CONC 32 g/dL (32.0-37.0); MEAN CORPUSCULAR VOLUME 94.9 FL (81.0-99.0); MONOCYTES # (AUTO) 0.5 K/UL (0.1-1.30); MONOCYTES % (AUTO) 5.1 % (0.0-11.0); NEUTROPHILS # (AUTO) 7.4 K/UL (1.8-8.9); NEUTROPHILS % (AUTO) 82.8 % (38.5-71.5); PLATELET COUNT (AUTO) 110 K/UL (150-450)
[2016-12-11 10:54] LABS: BAND % (MANUAL) 6 % (0-10); EOSINOPHILS % (MANUAL) 4 % (0-8); LYMPHOCYTES % (MANUAL) 7 % (20-40); MONOCYTES % (MANUAL) 4 % (2-10); NEUTROPHILS % (MANUAL) 79 % (42-75)
[2016-12-11] MEDS ORDERED: MAGNESIUM SULFATE/D5W 100 ML IV SCH (11:00)
--- NOTE | 2016-12-11 11:00 | NUR ---
Pt.was seen by with new orders.
[2016-12-11] MEDS: POTASSIUM CHLORIDE 50 ML IV SCH ×2 (11:13→12:16)
[2016-12-11 13:08] LABS: A/G RATIO 1.4 (0.7-1.7); ALBUMIN 2.8 g/dL (2.9-4.4); ALPHA-1-GLOBULIN 0.3 g/dL (0.0-0.4); ALPHA-2-GLOBULIN 0.6 g/dL (0.4-1.0); BETA GLOBULIN 0.6 g/dL (0.7-1.3); GAMMA GLOBULIN 0.5 g/dL (0.4-1.8); M-SPIKE Not Observed g/dL (Not Observed)
--- NOTE | 2016-12-11 14:53 | NUR ---
Pt.was seen by Dr. Herr with new orders.
[2016-12-11] MEDS: IV NS 1000 ML 1,000 ML IV PRN (15:12)
[2016-12-11] MEDS: Z GUARD REMEDY PASTE 57 GM TUBE TOP PRN (15:12)
[2016-12-11] MEDS: VANCOMYCIN IV 1 G in PREMIXED 0 EACH IV SCH (15:24)
--- NOTE | 2016-12-11 15:36 | NUR ---
Pt.was seen by GONZÁLEZ INGRAM MD and .
--- NOTE | 2016-12-11 18:16 | NUR ---
No changes in pt.condition,no s/s of distress,pt.denies pain,was Tx to TELE #[id number] with sitter 1:1.
[2016-12-11] MEDS ORDERED: ATORVASTATIN 20 MG TABLET PO SCH (21:00)
[2016-12-11] MEDS: EZETIMIBE 10 MG TABLET PO SCH (21:23)
[2016-12-11] MEDS: SIMVASTATIN 40 MG TABLET PO SCH (21:23)
[2016-12-11] MEDS: METOPROLOL TARTRATE 25 MG TABLET PO SCH (21:24)
[2016-12-11] MEDS: HYDROCODONE/APAP 5-325MG TABLET PO PRN (21:36)
[2016-12-12] VITALS: BP 136/68
[2016-12-12] MEDS: PIPERACILLIN/TAZOBACTAM/D5W 2.25 G in PREMIXED 1 EACH IV SCH ×2 (00:54→05:41)
[2016-12-12] MEDS: ZOLPIDEM 5 MG TABLET PO PRN (01:41)
[2016-12-12] MEDS: METRONIDAZOLE 500 MG/NS 100ML 500 MG in PREMIXED 1 EACH IV SCH ×3 (02:16→18:00)
[2016-12-12] MEDS: VANCOMYCIN FOR PO/GT/NG USE PO SCH ×3 (06:30→18:24)
[2016-12-12 06:44] LABS: BASOPHILS % (AUTO) 0.1 % (0.0-2.0); EOSINOPHILS # (AUTO) 0.2 K/uL (0.0-0.7); HEMATOCRIT 26.7 % (37-47); LYMPHOCYTES # (AUTO) 1.1 K/UL (0.8-4.8); LYMPHOCYTES % (AUTO) 15.9 % (20.5-51.5); MEAN CORPUSCULAR HEMOGLOBIN 32.3 UUG (27.0-31.0); MEAN CORPUSCULAR HGB CONC 34 g/dL (32.0-37.0); MEAN CORPUSCULAR VOLUME 95.2 FL (81.0-99.0); MONOCYTES # (AUTO) 0.6 K/UL (0.1-1.30); MONOCYTES % (AUTO) 8.9 % (0.0-11.0); NEUTROPHILS # (AUTO) 5.2 K/UL (1.8-8.9); NEUTROPHILS % (AUTO) 72.1 % (38.5-71.5); PLATELET COUNT (AUTO) 108 K/UL (150-450); WHITE BLOOD COUNT (AUTO) 7.1 K/UL (4.0-11.2)
[2016-12-12 06:51] LABS: ALANINE AMINOTRANSFERASE 30 U/L (14-59); ALKALINE PHOSPHATASE 59 U/L (50-136); ASPARTATE AMINOTRANSFERASE 27 U/L (15-37); BILIRUBIN,TOTAL 0.4 mg/dL (0.2-1.0); CARBON DIOXIDE 25 mmol/L (21-32); CHLORIDE 115 mmol/L (98-107); CREATININE 0.7 mg/dL (0.6-1.3); GLUCOSE 106 mg/dL (74-106); MAGNESIUM 1.3 mg/dL (1.8-2.4); POTASSIUM 2.9 mmol/L (3.5-5.1); TOTAL PROTEIN, SERUM 4.5 g/dL (6.4-8.2); UREA NITROGEN, BLOOD 12 mg/dL (7-18)
[2016-12-12] MEDS ORDERED: PANTOPRAZOLE SODIUM 40 MG TABLET.DR PO SCH (07:00)
[2016-12-12 07:30] VITALS: BP 141/52
[2016-12-12] MEDS ORDERED: IV NS 1000 ML 1,000 ML IV ONE (07:45)
[2016-12-12] MEDS ORDERED: ASPIRIN 81 MG TAB.CHEW PO SCH (09:00)
[2016-12-12] MEDS ORDERED: ASPIRIN 300 MG RECTAL SUPP RC SCH (09:00)
[2016-12-12] MEDS ORDERED: ASPIRIN 81 MG TAB.CHEW GT SCH (09:00)
[2016-12-12] MEDS: DOCUSATE SODIUM 100 MG CAPSULE PO SCH (09:49)
[2016-12-12] MEDS: IV NS 1000 ML 1,000 ML IV PRN (09:50)
[2016-12-12] MEDS: METOPROLOL TARTRATE 25 MG TABLET PO SCH (09:55)
[2016-12-12 12:00] VITALS: BP 153/71
[2016-12-12] MEDS ORDERED: POTASSIUM CHLORIDE 20 MEQ POWDER PACKET GT ONE (12:30)
[2016-12-12] MEDS: AMPICILLIN IV 2 G in IV NORMAL SALINE 100 ML IV SCH ×2 (13:21→18:00)
[2016-12-12] MEDS: POTASSIUM CHLORIDE 50 ML IV SCH ×4 (13:21→15:46)
[2016-12-12] MEDS: MAGNESIUM SULFATE/D5W 100 ML IV SCH ×4 (13:46→15:46)
[2016-12-12] MEDS: HYDROCODONE/APAP 5-325MG TABLET PO PRN (15:45)
[2016-12-12 15:54] VITALS: BP 146/81
[2016-12-12] MEDS ORDERED: MIRT15TA7 PO (17:30)
[2016-12-12] MEDS ORDERED: HYDR-3326 PO (17:30)
[2016-12-12] MEDS ORDERED: ALBU1.25 NEB (17:30)
[2016-12-12] MEDS ORDERED: MENT71OI TOP (17:30)
[2016-12-12] MEDS ORDERED: PANT40TA2 PO (17:30)
[2016-12-12] MEDS ORDERED: DOCU100C36 PO (17:30)
[2016-12-12] MEDS ORDERED: QUET25TA PO (17:30)
[2016-12-12] MEDS ORDERED: MAGN400O6 PO (17:30)
[2016-12-12] MEDS ORDERED: ASPI81TA31 PO (17:30)
[2016-12-12] MEDS ORDERED: LISI10TA5 PO (17:32)
[2016-12-12] MEDS ORDERED: ACID1TAB4 PO (17:43)
[2016-12-12] MEDS ORDERED: AMPI2VIA IV (17:43)
--- NOTE | 2016-12-12 18:40 | NUR ---
PATIENT HAVE BEEN IN BED RESTING, SLEEPING INTERMITTENTLY. NO S/S OF DISTRESS NOTED. PATIENT IS VERY PASSIVE AND NO TALKATIVE. DR. DEVINE DISCHARGE HER TO [facility]. RECTUM TUBE WAS REMOVED ORDERED. PAIN MED WAS GIVEN FOR COMFORT DURING REMOVING. REDNESS IN THE RECTUM AREA, DC PICTURE WAS TAKEN AND Z-GUARD PROTECTION WAS APPLIED. 100CC OF STOOL REMOVED. PATIENT WILL GO TO THE FACILITY WITH F/C AND PICC LINE, BOTH ARE PATENT AND INTACT. REPORT WAS GIVEN TO MAILE GUZMAN. AMBULANCE WILL SUPERVISOR CALIBRATION PATIENT AT 20:30. REPORT WILL BE ENDORSE TO RN.
--- NOTE | 2016-12-12 19:24 | NUR ---
FLAGYL WAS NOT GIVEN BECAUSE AMPICILLIN AND 4TH BAG OF MAGNESIUM WAS NOT COMPLETED AND PATIENT IS DISCHARGE AND BEEN ROLL CLAMP OPERATOR AROUND 20:30. POTASSIUM WAS GIVE TO MAILE HERNANDEZ TO COMPLETE INFUSION BEFORE PATIENT LEAVE TO [facility].
--- NOTE | 2016-12-12 19:30 | NUR ---
RECEIVED PATIENT LAYING COMFORTABLY IN BED. ROOM AIR. ALERT TO SELF ONLY. PICC LINE ON THE RIGHT UPPER ARM IS [id number]-PATENT. SAFETY INITIATED. CALL LIGHT WITHIN REACH. WILL ADMINISTER THE POTASSIUM BAG ENDORSED BY AM NURSE JAZMYN. BODY ASSESSMENT DONE. REDNESS ON THE RECTAL AREA NOTED. WILL CONTINUE TO MONITOR.
[2016-12-12] MEDS ORDERED: MIRTAZAPINE 15 MG TABLET PO SCH (21:00)
[2016-12-12] MEDS ORDERED: QUETIAPINE FUMARATE 25 MG TABLET PO SCH (21:00)
[2016-12-12] MEDS ORDERED: METOPROLOL TARTRATE 25 MG TABLET PO SCH (21:00)
[2016-12-12 21:17] VITALS: BP 152/79
--- NOTE | 2016-12-12 21:17 | NUR ---
GAVE PATIENT GAVE LOPRESSOR 25 MG BEFORE LEAVING WITH TRANSPORT TEAM. B/P 152/79 HR 87.
== END 2016-12-12 21:42 | DRG 871 ==
LOC: MED 20:55 → CCU 12-08 14:22 → MED 12-11 17:20 → TELE 12-11 17:37 → MED 12-12 12:08
PROVIDERS: ADMIT Internal Medicine; ATTEND Internal Medicine
PROC: 02HV33Z Insertion of Infusion Device into Superior Vena Cava, Percutaneous Approach (ICD-10-PCS; principal; 2016-12-08)
DX: A41.9 Sepsis, unspecified organism (principal); I50.33 Acute on chronic diastolic (congestive) heart failure; I21.4 Non-ST elevation (NSTEMI) myocardial infarction; N17.0 Acute kidney failure with tubular necrosis; R65.21 Severe sepsis with septic shock; J69.0 Pneumonitis due to inhalation of food and vomit; G93.40 Encephalopathy, unspecified; E87.0 Hyperosmolality and hypernatremia; E87.2 Acidosis; N13.30 Unspecified hydronephrosis; N39.0 Urinary tract infection, site not specified; R19.7 Diarrhea, unspecified; D50.9 Iron deficiency anemia, unspecified; R19.5 Other fecal abnormalities; E78.5 Hyperlipidemia, unspecified; I11.0 Hypertensive heart disease with heart failure; I50.9 Heart failure, unspecified; E83.42 Hypomagnesemia; E86.0 Dehydration; E87.6 Hypokalemia; K59.00 Constipation, unspecified; F20.9 Schizophrenia, unspecified; K80.20 Calculus of gallbladder without cholecystitis without obstruction; E86.9 Volume depletion, unspecified; M43.16 Spondylolisthesis, lumbar region; B95.2 Enterococcus as the cause of diseases classified elsewhere; Z91.19 Patient's noncompliance with other medical treatment and regimen; F03.90 Unspecified dementia, unspecified severity, without behavioral disturbance, psychotic disturbance, mood disturbance, and anxiety
CPT/HCPCS: 36415; 70030-TC; 71010; 76770; 83550; 83605; 83735; 83970; 84100; 84155; 84156; 84165; 84300; 85025; 85730; 87040; 87077; 87086; 87806; 93005; 93307; 97110; 97161; 97530; C9113; J0290; J1200; J1644; J2060; J2370; J2543; J3370; J3475; J3480; J3486; J3490; J7030; J7050; J7060

== ENCOUNTER 2017-01-19 20:34 | Inpatient (IN) | payer MEDICARE, OTHER ==
[~2017-01-19] VITALS: Ht 149.9 cm; Wt 53.1 kg
[~2017-01-19 20:34] MED LIST changes: +ACET-2154 PO; +ACID1TAB4 PO; +ALBU1.25 NEB; +AMPI2VIA IV; +ASPI81TA31 PO; +CLON0.1T PO; +DOCU-141 PO; +DOCU100C36 PO; +DULCOLAX 10MG SUPP; -ENAL20TA70 PO; -EZET1TAB31 PO; -GEMF600T3 PO; +HYDR-3326 PO; -IBUP-1957 PO; +LISI10TA5 PO; +MAG30ORA PO; +MAGN400O6 PO; +MENT71OI TOP; +METO25TA6 PO; +MIRT15TA7 PO; +PANT40TA2 PO; +QUET25TA PO; +SIMV40TA2 PO
[2017-01-19] MEDS ORDERED: IV NORMAL SALINE 500 ML BAG IV ONE (21:30)
[2017-01-19 21:39] LABS: BASOPHILS % (AUTO) 0.3 % (0.0-2.0); EOSINOPHILS # (AUTO) 0.1 K/uL (0.0-0.7); EOSINOPHILS % (AUTO) 1.7 % (0.0-7.0); HEMATOCRIT 25.9 % (37-47); HEMOGLOBIN 8.5 G/DL (12.0-16.0); LYMPHOCYTES # (AUTO) 1.3 K/UL (0.8-4.8); LYMPHOCYTES % (AUTO) 24.7 % (20.5-51.5); MEAN CORPUSCULAR HEMOGLOBIN 31.3 UUG (27.0-31.0); MEAN CORPUSCULAR HGB CONC 33 g/dL (32.0-37.0); MEAN CORPUSCULAR VOLUME 95.2 FL (81.0-99.0); MONOCYTES # (AUTO) 0.4 K/UL (0.1-1.30); NEUTROPHILS # (AUTO) 3.5 K/UL (1.8-8.9); NEUTROPHILS % (AUTO) 66.3 % (38.5-71.5); PLATELET COUNT (AUTO) 142 K/UL (150-450); RED BLOOD CELL COUNT(AUTO) 2.72 MIL/UL (4.2-5.4); WHITE BLOOD COUNT (AUTO) 5.3 K/UL (4.0-11.2)
[2017-01-19 21:41] LABS: CARBON DIOXIDE 30 mmol/L (21-32); CHLORIDE 103 mmol/L (98-107); CREATININE 0.7 mg/dL (0.6-1.3); GLUCOSE 94 mg/dL (74-106); POTASSIUM 3.8 mmol/L (3.5-5.1); UREA NITROGEN, BLOOD 18 mg/dL (7-18)
[2017-01-19 21:47] LABS: ALANINE AMINOTRANSFERASE 18 U/L (14-59); ALKALINE PHOSPHATASE 84 U/L (50-136); ASPARTATE AMINOTRANSFERASE 19 U/L (15-37); BILIRUBIN,DIRECT 0.1 mg/dL (0.0-0.2); BILIRUBIN,TOTAL 0.4 mg/dL (0.2-1.0); TOTAL PROTEIN, SERUM 6.2 g/dL (6.4-8.2)
[2017-01-19 21:50] LABS: ETHANOL < 3 MG/DL (0-0)
[2017-01-20] MEDS ORDERED: RISP0.5T5 PO (00:31)
[2017-01-20] MEDS ORDERED: LAMO25TA5 GT (00:31)
--- NOTE | 2017-01-20 02:38 | NUR ---
Pt. admitted to GPS, under care of Dr. Kenyon Belongs List completed
[2017-01-20] MEDS ORDERED: MAGNESIUM HYDROXIDE 30 ML LIQUID UDC PO PRN (03:00)
[2017-01-20] MEDS ORDERED: MAG HYDROX/AL HYDROX/SIMETH 30 ML LIQUID UDC PO PRN (03:00)
[2017-01-20] MEDS ORDERED: CLONAZEPAM 0.5 MG TABLET PO SCH (03:00)
[2017-01-20] MEDS ORDERED: CLONAZEPAM 0.5 MG TABLET ONE (03:10)
[2017-01-20 03:30] VITALS: BP 138/81
--- NOTE | 2017-01-20 03:30 | NUR ---
GPS: Admitted to unit a 77 yr.old female from [facility] who was medically cleared at our E.R. in stable condition. Pt.is on a 72 hour hold for GD. Pt.has been refusing care,agitated and unable to care for self at her facility. Pt. is alert to self,but confused and disorganized. Anxious,uncooperative,easily irritable during interview. Body assessment done/Belongings list completed. Medicated with Klonopin 0.5mg for anxiety and placed near nurses station for close monitoring due to frequent episodes of trying to get up from bed. Gait is unsteady at this time. Will monitor behavior.
[2017-01-20 07:30] VITALS: BP 158/59
[2017-01-20] MEDS: QUETIAPINE FUMARATE 25 MG TABLET PO SCH ×2 (11:27→16:50)
[2017-01-20] MEDS: CLONAZEPAM 0.5 MG TABLET PO PRN ×2 (14:13→19:57)
[2017-01-20 15:41] VITALS: BP 127/52
[2017-01-20 20:10] VITALS: BP 114/60
[2017-01-20] MEDS ORDERED: ALBUTEROL SULFATE 1.25 MG/3 ML NEBU NEB PRN (20:15)
[2017-01-20] MEDS ORDERED: CLONIDINE HCL 0.1 MG TABLET PO PRN (20:15)
[2017-01-20] MEDS ORDERED: TRAMADOL HCL 50 MG TABLET PO PRN (20:15)
[2017-01-20] MEDS ORDERED: DOCUSATE SODIUM 100 MG CAPSULE PO SCH (21:00)
[2017-01-20] MEDS: METOPROLOL TARTRATE 25 MG TABLET PO SCH (21:00)
[2017-01-20] MEDS: DOCUSATE SODIUM 100 MG CAPSULE PO SCH (21:17)
[2017-01-20] MEDS: MIRTAZAPINE 15 MG TABLET PO SCH (21:17)
[2017-01-20] MEDS: SIMVASTATIN 40 MG TABLET PO SCH (21:19)
[2017-01-20] MEDS ORDERED: METOPROLOL TARTRATE 25 MG TABLET ONE (21:26)
[2017-01-20] MEDS ORDERED: DOCUSATE SODIUM 100 MG CAPSULE PO ONE (21:26)
[2017-01-20] MEDS ORDERED: SIMVASTATIN 40 MG TABLET ONE (21:32)
[2017-01-21] MEDS: TEMAZEPAM 7.5 MG CAPSULE PO PRN ×2 (01:22→22:23)
[2017-01-21 07:30] VITALS: BP 129/58
[2017-01-21] MEDS: ASPIRIN 81 MG TAB.CHEW PO SCH (08:30)
[2017-01-21] MEDS: PANTOPRAZOLE SODIUM 40 MG TABLET.DR PO SCH (08:30)
[2017-01-21] MEDS: ACIDOPHILUS/BULGARICUS CHEW TAB PO SCH ×2 (08:30→16:55)
[2017-01-21] MEDS: LISINOPRIL 10 MG TABLET PO SCH (08:30)
[2017-01-21] MEDS: DOCUSATE SODIUM 100 MG CAPSULE PO SCH ×2 (08:31→20:02)
[2017-01-21] MEDS: METOPROLOL TARTRATE 25 MG TABLET PO SCH ×2 (08:31→20:03)
[2017-01-21] MEDS: QUETIAPINE FUMARATE 25 MG TABLET PO SCH ×2 (08:31→16:55)
[2017-01-21] MEDS: CLONAZEPAM 0.5 MG TABLET PO PRN (14:10)
[2017-01-21 15:17] VITALS: BP 93/50
[2017-01-21] MEDS: SIMVASTATIN 40 MG TABLET PO SCH (20:02)
[2017-01-21] MEDS: MIRTAZAPINE 15 MG TABLET PO SCH (20:02)
[2017-01-21 20:19] VITALS: BP 134/72
[2017-01-22] MEDS: PANTOPRAZOLE SODIUM 40 MG TABLET.DR PO SCH (06:43)
[2017-01-22 07:30] VITALS: BP 143/77
[2017-01-22] MEDS: LISINOPRIL 10 MG TABLET PO SCH (09:10)
[2017-01-22] MEDS: METOPROLOL TARTRATE 25 MG TABLET PO SCH ×2 (09:10→20:09)
[2017-01-22] MEDS: ACIDOPHILUS/BULGARICUS CHEW TAB PO SCH ×2 (09:10→16:37)
[2017-01-22] MEDS: DOCUSATE SODIUM 100 MG CAPSULE PO SCH ×2 (09:11→20:08)
[2017-01-22] MEDS: QUETIAPINE FUMARATE 25 MG TABLET PO SCH ×2 (09:11→16:37)
[2017-01-22] MEDS: ASPIRIN 81 MG TAB.CHEW PO SCH (10:06)
--- NOTE | 2017-01-22 12:27 | NUR ---
Initial discharge instructions: The patient resides at [facility] [[address] [place] [address]; ]. SHOLA spoke with Edson at the facility who stated that they will be accepting the patient back upon discharge. SHOLA spoke with the patient's daughter Arminda Thomas who stated that she would like for the patient to return to the facility upon discharge. SHOLA will speak with patient, family, and MD regarding most appropriate discharge plan. SS will form a safe and proper discharge.
[2017-01-22 15:23] VITALS: BP 135/62
[2017-01-22] MEDS: CLONAZEPAM 0.5 MG TABLET PO PRN (20:08)
[2017-01-22] MEDS: SIMVASTATIN 40 MG TABLET PO SCH (20:08)
[2017-01-22] MEDS: MIRTAZAPINE 15 MG TABLET PO SCH (20:08)
[2017-01-22 20:09] VITALS: BP 146/82
[2017-01-23] MEDS: CLONAZEPAM 0.5 MG TABLET PO PRN ×2 (05:12→15:08)
--- NOTE | 2017-01-23 05:15 | NUR ---
GPS: Pt.is awake,anxious,easily agitated when being re-directed. Noted to be collecting garbage/picking up trash bags from other pts.rooms. Medicated with Klonopin 0.5mg PO. Will monitor effectiveness.
[2017-01-23] MEDS: PANTOPRAZOLE SODIUM 40 MG TABLET.DR PO SCH (06:04)
[2017-01-23 07:50] VITALS: BP 130/73
[2017-01-23] MEDS: ACIDOPHILUS/BULGARICUS CHEW TAB PO SCH ×2 (08:14→16:51)
[2017-01-23] MEDS: DOCUSATE SODIUM 100 MG CAPSULE PO SCH ×2 (08:14→20:09)
[2017-01-23] MEDS: ASPIRIN 81 MG TAB.CHEW PO SCH (08:14)
[2017-01-23] MEDS: QUETIAPINE FUMARATE 25 MG TABLET PO SCH ×2 (08:15→16:51)
[2017-01-23] MEDS: LISINOPRIL 10 MG TABLET PO SCH (08:15)
[2017-01-23] MEDS: METOPROLOL TARTRATE 25 MG TABLET PO SCH ×2 (08:15→20:09)
--- NOTE | 2017-01-23 15:26 | NUR ---
GPS/RN- patient sitting in activity room, tossing water at windows and floor, patient redirected becoming increasingly hostile, verbally abusive. patient able to be redirected back to her room to help her agitation, Klonopin PRN was provided. patient continues increasingly anxious, agitated, pacing, verbally abusive, fisting as she is walking down hallway, patient attempting to AWOL unit; redirected by staff, patient attempting to punch staff, verbally abusive unable to redirect, Dr Kenyon Notified , Orders received for Zyprexa 5mg IM Once.
[2017-01-23] MEDS ORDERED: OLANZAPINE 10 MG VIAL IM ONE (15:30)
[2017-01-23 15:55] VITALS: BP 136/71
[2017-01-23 20:02] VITALS: BP 136/67
[2017-01-23] MEDS: SIMVASTATIN 40 MG TABLET PO SCH (20:09)
[2017-01-23] MEDS: MIRTAZAPINE 15 MG TABLET PO SCH (20:09)
[2017-01-23] MEDS: ACETAMINOPHEN 325 MG TABLET PO PRN (21:49)
[2017-01-23] MEDS: TEMAZEPAM 7.5 MG CAPSULE PO PRN (22:09)
[2017-01-24] MEDS: PANTOPRAZOLE SODIUM 40 MG TABLET.DR PO SCH (06:08)
[2017-01-24 07:30] VITALS: BP 132/70
[2017-01-24] MEDS: ACIDOPHILUS/BULGARICUS CHEW TAB PO SCH ×2 (08:18→16:31)
[2017-01-24] MEDS: QUETIAPINE FUMARATE 25 MG TABLET PO SCH ×2 (08:18→16:31)
[2017-01-24] MEDS: DOCUSATE SODIUM 100 MG CAPSULE PO SCH ×2 (08:19→21:00)
[2017-01-24] MEDS: ASPIRIN 81 MG TAB.CHEW PO SCH (08:19)
[2017-01-24] MEDS: LISINOPRIL 10 MG TABLET PO SCH (08:19)
[2017-01-24] MEDS: METOPROLOL TARTRATE 25 MG TABLET PO SCH ×2 (08:20→21:00)
--- NOTE | 2017-01-24 08:31 | NUR ---
NEW AM LAB ORDERS NOTED FROM DR ROGEL AND CARRIED OUT.
[2017-01-24] MEDS: CLONAZEPAM 0.5 MG TABLET PO PRN (14:22)
--- NOTE | 2017-01-24 14:26 | NUR ---
NOTED AGITATION AND THROWING THINGS UNABLE TO REDIRET PATIENT MEDICATED WITH KLONAZEPAM ORDERED AND WILL CONTINUE TO OBSERVE.
--- NOTE | 2017-01-24 17:36 | NUR ---
GPS/RN- patient anxious and restless this afternoon, patient looking for her items, carrying a bag of trash and towels, empty food container, patient agitated when redirected items had to be thrown away for infection control. patient irritable angry labile. disrobing walking around without top on using blanket to cover self and trying to AWOL. unable to redirect. throwing water on the floor in her room. patient was provided with PRN earlier not effective at this time. Dr Kostas encinas.
[2017-01-24] MEDS ORDERED: LORAZEPAM 2 MG/1 ML VIAL IM ONE (17:45)
[2017-01-24] MEDS ORDERED: diphenhydrAMINE 50 MG/1 ML VIAL IM ONE (17:45)
[2017-01-24] MEDS ORDERED: HALOPERIDOL LACTATE 5 MG/1 ML VIAL IM ONE (17:45)
[2017-01-24 17:46] VITALS: BP 124/70
--- NOTE | 2017-01-24 17:50 | NUR ---
HALDOL/ATIVAN/BENADRYL GIVEN IM TO HER LEFT GLUTEUS MUSCLE ORDERED PATIENT MADE COMFORTABLE AND WILL CONTINUE TO OBSERVE PATIENT CLOSELY.
[2017-01-24 20:32] VITALS: BP 128/64
[2017-01-24] MEDS: SIMVASTATIN 40 MG TABLET PO SCH (21:00)
[2017-01-24] MEDS: MIRTAZAPINE 15 MG TABLET PO SCH (21:00)
[2017-01-25] MEDS: TEMAZEPAM 7.5 MG CAPSULE PO PRN ×2 (02:02→22:54)
[2017-01-25] MEDS: PANTOPRAZOLE SODIUM 40 MG TABLET.DR PO SCH (06:05)
[2017-01-25] MEDS: CLONAZEPAM 0.5 MG TABLET PO PRN (06:06)
[2017-01-25 07:30] VITALS: BP 143/74
[2017-01-25 08:14] LABS: BASOPHILS % (AUTO) 0.7 % (0.0-2.0); EOSINOPHILS # (AUTO) 0.1 K/uL (0.0-0.7); EOSINOPHILS % (AUTO) 1.4 % (0.0-7.0); HEMATOCRIT 27.7 % (37-47); HEMOGLOBIN 9.2 G/DL (12.0-16.0); LYMPHOCYTES # (AUTO) 1.3 K/UL (0.8-4.8); LYMPHOCYTES % (AUTO) 27.8 % (20.5-51.5); MEAN CORPUSCULAR HEMOGLOBIN 31.7 UUG (27.0-31.0); MEAN CORPUSCULAR HGB CONC 33 g/dL (32.0-37.0); MONOCYTES # (AUTO) 0.3 K/UL (0.1-1.30); MONOCYTES % (AUTO) 7.1 % (0.0-11.0); NEUTROPHILS # (AUTO) 2.9 K/UL (1.8-8.9); PLATELET COUNT (AUTO) 161 K/UL (150-450); RED BLOOD CELL COUNT(AUTO) 2.91 MIL/UL (4.2-5.4); WHITE BLOOD COUNT (AUTO) 4.6 K/UL (4.0-11.2)
[2017-01-25 08:24] LABS: ALANINE AMINOTRANSFERASE 19 U/L (14-59); ALKALINE PHOSPHATASE 93 U/L (50-136); ASPARTATE AMINOTRANSFERASE 24 U/L (15-37); BILIRUBIN,TOTAL 0.4 mg/dL (0.2-1.0); CARBON DIOXIDE 31 mmol/L (21-32); CHLORIDE 105 mmol/L (98-107); CREATININE 0.6 mg/dL (0.6-1.3); GLUCOSE 84 mg/dL (74-106); IRON, SERUM 33 ug/dL (50-175); MAGNESIUM 1.9 mg/dL (1.8-2.4); TOTAL PROTEIN, SERUM 7.1 g/dL (6.4-8.2); UREA NITROGEN, BLOOD 17 mg/dL (7-18)
[2017-01-25] MEDS: DOCUSATE SODIUM 100 MG CAPSULE PO SCH ×2 (08:45→20:50)
[2017-01-25] MEDS: ACIDOPHILUS/BULGARICUS CHEW TAB PO SCH ×2 (08:45→16:06)
[2017-01-25] MEDS: ASPIRIN 81 MG TAB.CHEW PO SCH (08:45)
[2017-01-25] MEDS: METOPROLOL TARTRATE 25 MG TABLET PO SCH ×2 (08:46→20:51)
[2017-01-25] MEDS: QUETIAPINE FUMARATE 25 MG TABLET PO SCH ×2 (08:46→16:05)
[2017-01-25] MEDS: LISINOPRIL 10 MG TABLET PO SCH (08:46)
[2017-01-25 16:00] VITALS: BP 142/79
[2017-01-25 20:11] VITALS: BP 139/78
[2017-01-25] MEDS: MIRTAZAPINE 15 MG TABLET PO SCH (20:50)
[2017-01-25] MEDS: SIMVASTATIN 40 MG TABLET PO SCH (20:51)
--- NOTE | 2017-01-25 22:00 | NUR ---
received to care, lying in bed, pleasant upon approach. compliant with medications and staff direction. watched tv in activity room. no interactions with peers, noted. as of 2200, she is in her room, awake. no distress noted. will continue to monitor closely.
--- NOTE | 2017-01-25 22:54 | NUR ---
PRN restoril given for insomnia.
--- NOTE | 2017-01-25 23:30 | NUR ---
appears to be asleep. no distress noted.
--- NOTE | 2017-01-26 06:00 | NUR ---
SLEPT 7.5 HOURS, TOTAL.
[2017-01-26] MEDS: PANTOPRAZOLE SODIUM 40 MG TABLET.DR PO SCH (06:14)
[2017-01-26 07:30] VITALS: BP 108/75
[2017-01-26] MEDS: METOPROLOL TARTRATE 25 MG TABLET PO SCH ×2 (09:00→20:29)
[2017-01-26] MEDS: LISINOPRIL 10 MG TABLET PO SCH (09:00)
[2017-01-26] MEDS: ASPIRIN 81 MG TAB.CHEW PO SCH (09:36)
[2017-01-26] MEDS: DOCUSATE SODIUM 100 MG CAPSULE PO SCH ×2 (09:36→20:28)
[2017-01-26] MEDS: ACIDOPHILUS/BULGARICUS CHEW TAB PO SCH ×2 (09:39→17:37)
[2017-01-26] MEDS: QUETIAPINE FUMARATE 25 MG TABLET PO SCH ×3 (09:47→20:28)
[2017-01-26 15:05] VITALS: BP 163/71
[2017-01-26 19:58] VITALS: BP 127/63
[2017-01-26] MEDS: SIMVASTATIN 20 MG TABLET PO SCH (20:28)
[2017-01-26] MEDS: MIRTAZAPINE 15 MG TABLET PO SCH (20:29)
[2017-01-26] MEDS ORDERED: SIMVASTATIN 40 MG TABLET PO SCH (21:00)
[2017-01-27] MEDS: TEMAZEPAM 7.5 MG CAPSULE PO PRN (01:42)
--- NOTE | 2017-01-27 05:58 | NUR ---
Patient slept for approx 4 hrs through the night. Temazepam 7.5mg PO PRN was given for Insomnia at approx 0140. Patient presents with bizarre behavior (grabbing bags of trash and bringing them to her room, collecting papers and Pacing the hallway. Patient is redirectable at this time. Compliant with medication regiment.
[2017-01-27] MEDS: PANTOPRAZOLE SODIUM 40 MG TABLET.DR PO SCH (06:26)
[2017-01-27 07:30] VITALS: BP 167/98
[2017-01-27] MEDS: CLONAZEPAM 0.5 MG TABLET PO PRN ×2 (07:48→12:22)
[2017-01-27] MEDS: ASPIRIN 81 MG TAB.CHEW PO SCH (08:31)
[2017-01-27] MEDS: ACIDOPHILUS/BULGARICUS CHEW TAB PO SCH ×2 (08:31→16:11)
[2017-01-27] MEDS: DOCUSATE SODIUM 100 MG CAPSULE PO SCH ×2 (08:31→20:24)
[2017-01-27] MEDS: FERROUS SULFATE 325 MG TABEC PO SCH (08:31)
[2017-01-27] MEDS: QUETIAPINE FUMARATE 25 MG TABLET PO SCH ×3 (08:32→20:23)
[2017-01-27] MEDS: METOPROLOL TARTRATE 25 MG TABLET PO SCH ×2 (08:32→20:24)
[2017-01-27] MEDS: LISINOPRIL 10 MG TABLET PO SCH (08:33)
[2017-01-27] MEDS: ACETAMINOPHEN 325 MG TABLET PO PRN (12:22)
--- NOTE | 2017-01-27 13:03 | NUR ---
GPS: Nursing Notes: Thought Disorder: Patient is awake and responding to her name, disorganized, hoarding trash in her room, banging on the window, banging on the exit door, stating, "I want to go home...", poor anger management, poor impulse control at times, disoriented, grabbing trash cans from other patient's rooms, unable to formulate a plan for self care, unpredictable behavior, gets easily irritable when redirected, setting limits, but unable to follow staff directions, continue with treatment plan.
[2017-01-27] MEDS ORDERED: HALOPERIDOL LACTATE 5 MG/1 ML VIAL IM STA (14:32)
[2017-01-27] MEDS ORDERED: LORAZEPAM 2 MG/1 ML VIAL IM STA (14:32)
[2017-01-27] MEDS ORDERED: diphenhydrAMINE 50 MG/1 ML VIAL IM STA (14:32)
--- NOTE | 2017-01-27 14:49 | NUR ---
GPS: Nursing Notes: Chemical Restraint: Patient continue to be overly disruptive by trying water at staff, verbal abusive toward staff, banging on the exit doors, punching on the windows, threatening staff, using profanities toward staff, restless, setting limits, but unable to follow directions, poor anger management, resistant with nursing care, hoarding trash into her room, disorganized, confused, disoriented, striking out to staff by kicking and trying to scratch staff, medicated with Haldol 3mg IM, Ativan 1mg IM and Benadryl 25mg IM STAT per covering psychiatrist Dr. Arriola, refusing V/S at this time, continue with treatment plan.
--- NOTE | 2017-01-27 15:19 | NUR ---
GPS: Nursing Notes: Reassessment of Chemical Restraint: Patient is awake and appears capable of controlling behavior, B/P=96/62, P=70, R=18, patient is calmed, medication IM stat was effective, continue to monitor patient for safety, continue with treatment plan.
[2017-01-27 16:31] VITALS: BP 96/62
[2017-01-27 20:20] VITALS: BP 126/59
[2017-01-27] MEDS: SIMVASTATIN 20 MG TABLET PO SCH (20:23)
[2017-01-27] MEDS: MIRTAZAPINE 15 MG TABLET PO SCH (20:24)
[2017-01-28] MEDS: PANTOPRAZOLE SODIUM 40 MG TABLET.DR PO SCH (06:25)
[2017-01-28 07:36] VITALS: BP 151/72
[2017-01-28] MEDS: DOCUSATE SODIUM 100 MG CAPSULE PO SCH ×2 (08:31→20:19)
[2017-01-28] MEDS: METOPROLOL TARTRATE 25 MG TABLET PO SCH ×2 (08:31→20:21)
[2017-01-28] MEDS: ASPIRIN 81 MG TAB.CHEW PO SCH (08:31)
[2017-01-28] MEDS: QUETIAPINE FUMARATE 25 MG TABLET PO SCH ×3 (08:31→20:17)
[2017-01-28] MEDS: ACIDOPHILUS/BULGARICUS CHEW TAB PO SCH ×2 (08:31→16:04)
[2017-01-28] MEDS: FERROUS SULFATE 325 MG TABEC PO SCH (08:31)
[2017-01-28] MEDS: LISINOPRIL 10 MG TABLET PO SCH (08:32)
[2017-01-28 15:19] VITALS: BP 103/52
[2017-01-28 19:57] VITALS: BP 118/68
[2017-01-28] MEDS: SIMVASTATIN 20 MG TABLET PO SCH (20:19)
[2017-01-28] MEDS: MIRTAZAPINE 15 MG TABLET PO SCH (20:19)
[2017-01-29 00:46] LABS: *BILIRUBIN,URIN NEGATIVE (NEGATIVE); *BLOOD, URINE NEGATIVE (NEGATIVE); *CLARITY,URINE CLOUDY (CLEAR); *COLOR,URINE YELLOW (YELLOW); *KETONES,URINE NEGATIVE (NEGATIVE); *PROTEIN,URINE NEGATIVE (NEGATIVE); *UROBILINOGEN,URINE 0.2 E.U./dl (NORMAL); LEUKOCYTE ESTERASE ,URINE 3+ (NEGATIVE); NITRITE, URINE POSITIVE (NEGATIVE); UGLUCOSE NEGATIVE (NEGATIVE)
[2017-01-29 01:43] LABS: BACTERIA,URINE MANY /HPF (NONE SEEN); RBC,URINE 0-3 /HPF (0-3); SQUAMOUS EPITHELIAL CELL,UR FEW /HPF (NONE SEEN); WBC,URINE 50-80 /HPF (0-3)
[2017-01-29] MEDS: CLONAZEPAM 0.5 MG TABLET PO PRN (02:47)
[2017-01-29] MEDS: HYDROCODONE/APAP 5-325MG TABLET PO PRN ×2 (05:35→19:25)
[2017-01-29] MEDS: PANTOPRAZOLE SODIUM 40 MG TABLET.DR PO SCH (06:40)
[2017-01-29 07:30] VITALS: BP 121/63
[2017-01-29] MEDS: ACIDOPHILUS/BULGARICUS CHEW TAB PO SCH ×3 (08:09→20:37)
[2017-01-29] MEDS: FERROUS SULFATE 325 MG TABEC PO SCH (08:09)
[2017-01-29] MEDS: DOCUSATE SODIUM 100 MG CAPSULE PO SCH ×2 (08:09→20:02)
[2017-01-29] MEDS: LISINOPRIL 10 MG TABLET PO SCH (08:10)
[2017-01-29] MEDS: QUETIAPINE FUMARATE 25 MG TABLET PO SCH ×2 (08:10→16:23)
[2017-01-29] MEDS: ASPIRIN 81 MG TAB.CHEW PO SCH (08:10)
[2017-01-29] MEDS: METOPROLOL TARTRATE 25 MG TABLET PO SCH ×2 (08:10→20:10)
[2017-01-29] MEDS: QUETIAPINE FUMARATE 25 MG TABLET PO PRN (10:34)
[2017-01-29 16:50] VITALS: BP 137/74
[2017-01-29] MEDS: SIMVASTATIN 20 MG TABLET PO SCH (20:02)
[2017-01-29] MEDS: MIRTAZAPINE 15 MG TABLET PO SCH (20:02)
[2017-01-29 20:32] VITALS: BP 131/78
[2017-01-30] MEDS: AMPICILLIN 500 MG CAPSULE PO SCH ×4 (00:15→17:36)
[2017-01-30] MEDS: PANTOPRAZOLE SODIUM 40 MG TABLET.DR PO SCH (06:25)
[2017-01-30 07:16] LABS: BASOPHILS % (AUTO) 0.6 % (0.0-2.0); EOSINOPHILS # (AUTO) 0.1 K/uL (0.0-0.7); EOSINOPHILS % (AUTO) 1.8 % (0.0-7.0); HEMATOCRIT 28.9 % (37-47); HEMOGLOBIN 9.6 G/DL (12.0-16.0); LYMPHOCYTES # (AUTO) 1.5 K/UL (0.8-4.8); LYMPHOCYTES % (AUTO) 29.3 % (20.5-51.5); MEAN CORPUSCULAR HEMOGLOBIN 31.6 UUG (27.0-31.0); MEAN CORPUSCULAR HGB CONC 33 g/dL (32.0-37.0); MEAN CORPUSCULAR VOLUME 95.1 FL (81.0-99.0); MONOCYTES # (AUTO) 0.4 K/UL (0.1-1.30); MONOCYTES % (AUTO) 7.2 % (0.0-11.0); NEUTROPHILS # (AUTO) 3.2 K/UL (1.8-8.9); NEUTROPHILS % (AUTO) 61.1 % (38.5-71.5); PLATELET COUNT (AUTO) 188 K/UL (150-450); RED BLOOD CELL COUNT(AUTO) 3.04 MIL/UL (4.2-5.4); WHITE BLOOD COUNT (AUTO) 5.2 K/UL (4.0-11.2)
[2017-01-30 07:52] LABS: ALANINE AMINOTRANSFERASE 20 U/L (14-59); ALKALINE PHOSPHATASE 97 U/L (50-136); ASPARTATE AMINOTRANSFERASE 22 U/L (15-37); BILIRUBIN,TOTAL 0.4 mg/dL (0.2-1.0); CARBON DIOXIDE 30 mmol/L (21-32); CHLORIDE 105 mmol/L (98-107); CREATININE 0.7 mg/dL (0.6-1.3); GLUCOSE 95 mg/dL (74-106); PHOSPHOROUS 3.5 mg/dL (2.5-4.9); TOTAL PROTEIN, SERUM 7.4 g/dL (6.4-8.2); UREA NITROGEN, BLOOD 17 mg/dL (7-18)
[2017-01-30] MEDS: ACIDOPHILUS/BULGARICUS CHEW TAB PO SCH ×2 (08:14→20:26)
[2017-01-30] MEDS: QUETIAPINE FUMARATE 25 MG TABLET PO SCH ×2 (08:15→12:08)
[2017-01-30] MEDS: ASPIRIN 81 MG TAB.CHEW PO SCH (08:15)
[2017-01-30] MEDS: FERROUS SULFATE 325 MG TABEC PO SCH (08:15)
[2017-01-30] MEDS: DOCUSATE SODIUM 100 MG CAPSULE PO SCH ×2 (08:15→20:25)
[2017-01-30] MEDS: METOPROLOL TARTRATE 25 MG TABLET PO SCH ×2 (08:16→20:27)
[2017-01-30] MEDS: LISINOPRIL 10 MG TABLET PO SCH (08:16)
[2017-01-30 08:30] VITALS: BP 149/78
[2017-01-30 15:01] VITALS: BP 114/55
[2017-01-30] MEDS ORDERED: QUETIAPINE FUMARATE 25 MG TABLET PO SCH (17:00)
[2017-01-30] MEDS: QUETIAPINE FUMARATE 100 MG TABLET PO SCH (17:36)
[2017-01-30 20:00] VITALS: BP 140/75
[2017-01-30] MEDS: SIMVASTATIN 20 MG TABLET PO SCH (20:26)
[2017-01-30] MEDS: MIRTAZAPINE 15 MG TABLET PO SCH (20:26)
[2017-01-30 20:50] VITALS: BP 140/75
[2017-01-31] MEDS: AMPICILLIN 500 MG CAPSULE PO SCH ×3 (00:12→12:23)
[2017-01-31] MEDS: QUETIAPINE FUMARATE 25 MG TABLET PO PRN (06:11)
--- NOTE | 2017-01-31 06:52 | NUR ---
Patient slept for approx 3 hrs through the night, At approx 0600, patient noted agitated pacing the hallway and bothering other patients. Seroquel 12.5 mg PO PRN was given for agitation at approx 0610. She is now calm and sitting in a izzy chair. we joleen continue to monitor.
[2017-01-31] MEDS: PANTOPRAZOLE SODIUM 40 MG TABLET.DR PO SCH (07:29)
[2017-01-31 07:30] VITALS: BP 110/61
[2017-01-31] MEDS: QUETIAPINE FUMARATE 100 MG TABLET PO SCH ×3 (08:34→16:21)
[2017-01-31] MEDS: ASPIRIN 81 MG TAB.CHEW PO SCH (08:34)
[2017-01-31] MEDS: ACIDOPHILUS/BULGARICUS CHEW TAB PO SCH (08:34)
[2017-01-31] MEDS: FERROUS SULFATE 325 MG TABEC PO SCH (08:34)
[2017-01-31] MEDS: DOCUSATE SODIUM 100 MG CAPSULE PO SCH (08:34)
[2017-01-31] MEDS: METOPROLOL TARTRATE 25 MG TABLET PO SCH (08:35)
[2017-01-31] MEDS: LISINOPRIL 10 MG TABLET PO SCH (08:35)
[2017-01-31] MEDS: CLONAZEPAM 0.5 MG TABLET PO PRN (10:17)
--- NOTE | 2017-01-31 13:11 | NUR ---
DC Note: The patient will be discharged today back to [facility] ([facility]) [[address] [place] [address] ] via ambulance at 2:00 pm. Spoke with Edson at the facility who stated that they will be accepting the patient back today. SW informed the patients daughter Arminda Thomas of the the discharge plan. SHOLA spoke with the patient and she is aware and agreeable with the discharge plan. The patient will follow-up with directory carrier Dr. Ramin Pittman and psychiatrist Dr. Jone Kenyon at the facility.
[2017-01-31 15:55] VITALS: BP 116/58
--- NOTE | 2017-01-31 16:50 | NUR ---
PATIENT DISCHARGED PICKED UP BY [facility] IN SATISFACTORY CONDITION WITH DISCHARGE INSTRUCTIONS AND REPORT CALLED TO MEGAN AT THE [facility] WITH HER EARINGS AND RING.
[2017-01-31] MEDS ORDERED: SIMV20TA2 PO (20:59)
[2017-01-31] MEDS ORDERED: QUET100T PO (20:59)
[2017-01-31] MEDS ORDERED: ACID1TAB4 PO (20:59)
[2017-01-31] MEDS ORDERED: CLON0.5T PO (20:59)
[2017-01-31] MEDS ORDERED: ALBU1.25 IH (20:59)
[2017-01-31] MEDS ORDERED: AMPI500C11 PO (20:59)
[2017-01-31] MEDS ORDERED: FERR-58 PO (20:59)
[2017-01-31] MEDS ORDERED: QUET25TA PO (20:59)
[2017-01-31] MEDS ORDERED: MIRT15TA7 PO (20:59)
[2017-01-31] MEDS ORDERED: TEMA7.5C2 PO (20:59)
== END 2017-01-31 16:50 | DRG 885 ==
LOC: ER 20:34 → GPS 01-20 00:01
PROVIDERS: ADMIT Psychiatry & Neurology Psychiatry; ATTEND Nurse Practitioner Acute Care
DX: F25.9 Schizoaffective disorder, unspecified (principal); I11.0 Hypertensive heart disease with heart failure; F03.90 Unspecified dementia, unspecified severity, without behavioral disturbance, psychotic disturbance, mood disturbance, and anxiety; D68.59 Other primary thrombophilia; I50.32 Chronic diastolic (congestive) heart failure; K92.2 Gastrointestinal hemorrhage, unspecified; N39.0 Urinary tract infection, site not specified; D63.8 Anemia in other chronic diseases classified elsewhere; E78.5 Hyperlipidemia, unspecified; Z79.899 Other long term (current) drug therapy; K21.9 Gastro-esophageal reflux disease without esophagitis; M81.0 Age-related osteoporosis without current pathological fracture; D69.6 Thrombocytopenia, unspecified; Z74.09 Other reduced mobility; M47.814 Spondylosis without myelopathy or radiculopathy, thoracic region
CPT/HCPCS: 36415; 71010; 83550; 83735; 84100; 85025; 93005; A4663; G0480; G0480-TC; J0290; J1200; J1630; J2060; J2358; J7040

== ENCOUNTER 2017-01-31 20:05 | Inpatient (IN) | payer MEDICARE, OTHER ==
[~2017-01-31] VITALS: Ht 142.2 cm; Wt 51.7 kg
--- NOTE | 2017-01-31 20:20 | NUR ---
PATIENT BIB AMBULANCE FROM [facility] FOR COMBATIVE BEHAVIOR. SECURITY AT BEDSIDE FOR SAFETY AND D/T HIGH AWOL RISK.
[2017-01-31] MEDS ORDERED: SIMV20TA2 PO (20:59)
[2017-01-31] MEDS ORDERED: AMPI500C11 PO (20:59)
[2017-01-31] MEDS ORDERED: ALBU1.25 IH (20:59)
[2017-01-31] MEDS ORDERED: ACID1TAB4 PO (20:59)
[2017-01-31] MEDS ORDERED: TEMA7.5C2 PO (20:59)
[2017-01-31] MEDS ORDERED: QUET100T PO (20:59)
[2017-01-31] MEDS ORDERED: FERR-58 PO (20:59)
[2017-01-31] MEDS ORDERED: MIRT15TA7 PO (20:59)
[2017-01-31] MEDS ORDERED: CLON0.5T PO (20:59)
[2017-01-31] MEDS ORDERED: QUET25TA PO (20:59)
[2017-01-31 21:24] LABS: BASOPHILS % (AUTO) 0.6 % (0.0-2.0); CARBON DIOXIDE 30 mmol/L (21-32); CHLORIDE 102 mmol/L (98-107); CREATININE 0.6 mg/dL (0.6-1.3); EOSINOPHILS # (AUTO) 0.1 K/uL (0.0-0.7); GLUCOSE 93 mg/dL (74-106); HEMATOCRIT 26.8 % (37-47); HEMOGLOBIN 8.9 G/DL (12.0-16.0); LYMPHOCYTES # (AUTO) 1.3 K/UL (0.8-4.8); LYMPHOCYTES % (AUTO) 32.4 % (20.5-51.5); MEAN CORPUSCULAR HEMOGLOBIN 31.4 UUG (27.0-31.0); MEAN CORPUSCULAR HGB CONC 33 g/dL (32.0-37.0); MEAN CORPUSCULAR VOLUME 94.4 FL (81.0-99.0); MONOCYTES # (AUTO) 0.3 K/UL (0.1-1.30); NEUTROPHILS # (AUTO) 2.3 K/UL (1.8-8.9); PLATELET COUNT (AUTO) 175 K/UL (150-450); POTASSIUM 3.6 mmol/L (3.5-5.1); RED BLOOD CELL COUNT(AUTO) 2.84 MIL/UL (4.2-5.4); UREA NITROGEN, BLOOD 17 mg/dL (7-18)
[2017-01-31 21:31] LABS: ALANINE AMINOTRANSFERASE 20 U/L (14-59); ALKALINE PHOSPHATASE 98 U/L (50-136); ASPARTATE AMINOTRANSFERASE 19 U/L (15-37); BILIRUBIN,DIRECT 0.1 mg/dL (0.0-0.2); BILIRUBIN,TOTAL 0.4 mg/dL (0.2-1.0)
[2017-01-31 21:32] LABS: ACETAMINOPHEN < 2.0 ug/mL (10-30)
[2017-01-31 21:37] LABS: ETHANOL < 3 MG/DL (0-0)
[2017-01-31 21:59] LABS: THYROID STIMULATING HORMONE 1.083 mIU/mL (0.358-3.740)
--- NOTE | 2017-01-31 22:10 | NUR ---
SALVATORE LOWE AT BEDSIDE FOR EVAL.
--- NOTE | 2017-01-31 23:22 | NUR ---
Pt. admitted to MHU , under care of Dr. INGRAM Belongs List completed
[2017-01-31 23:35] VITALS: BP 132/70
[2017-02-01] MEDS ORDERED: TEMAZEPAM 15 MG CAPSULE PO PRN
[2017-02-01] MEDS: CLONAZEPAM 0.5 MG TABLET PO PRN ×3 (00:15→19:48)
[2017-02-01] MEDS ORDERED: ACETAMINOPHEN 325 MG TABLET ONE (00:17)
[2017-02-01] MEDS ORDERED: CLONAZEPAM 0.5 MG TABLET ONE (00:19)
--- NOTE | 2017-02-01 01:05 | NUR ---
received to care, at 2335, from the emergency room, from [address] [place] [address], where she was discharged to, from our facility, earlier, in the day. according to the hold, she was attempting AWOL, becoming aggressive when redirected, stating she did not want to live there, that she can live on her own. according to her family, they are unable care for her, so she was determined to be gravely disabled. upon arrival on the unit, she was confused, and unable to comprehend, or answer questions. was wandering into peers rooms, becoming difficult to redirect. she was given PRN tylenol and klonopin at 0015. she continued to wander about for about 20 minutes. she refused to go to bed, but agreed to lie down in the izzy chair, at the nurses station, at 0045. as of 0105, she is asleep, in the chair. no distress noted. will continue to monitor closely.
--- NOTE | 2017-02-01 06:30 | NUR ---
slept 1.0 hour, total. assited with AM care, and shower. currently watching tv, with peers. no distress noted. will continue to monitor closely.
[2017-02-01 07:28] VITALS: BP 141/69
--- NOTE | 2017-02-01 09:24 | NUR ---
Disoriented and disorganized, intrusive to other patients. Restless and agitated, throwing water. Redirected. Klonopin PRN given
--- NOTE | 2017-02-01 10:12 | NUR ---
Grain Handler I have reviewed this patients psychosocial dated 01/22/17. I can attest to the accuracy of the information therein. There have been no changes since her last assessment. Presenting problem: The patient was placed on a 5150 hold for grave disability. The patient was sent to the ER from [facility] after having just been re-admitted there from [facility] after attempts to elope and agitation. The patient acknowledged her attempt to leave stating she doesn't need a hospital and that she can live on her own as the son is capable of providing room and care. The patient was observed raising her shirt, dancing around the ER room and hallway far from baseline per daughter. The patient stated, "I refuse to be at the hospital, I'm okay alone." She has a history of schizophrenia. Upon addiction social worker evaluation, the patient was angry, irritable, and uncooperative. The patient was pacing in the hallway cursing at the hospital staff. SHOLA has called [facility] and spoke with Edson to see if they will be accepting the patient back. SW awaiting call back from [place] regarding patient being able to return. SHOLA called the patient's daughter Arminda Thomas and the patient's daughter stated she is open to the patient being placed in a secure facility, in the event that [facility] does not accept the patient back. SHOLA will speak with patient, family, and MD regarding most appropriate discharge plan. SS will form a safe and proper discharge.
--- NOTE | 2017-02-01 11:00 | NUR ---
MED RECONCILIATION: SPOKE WITH DR TARIQ, STATES HE WILL RECONCILE MEDS.
[2017-02-01] MEDS ORDERED: QUETIAPINE FUMARATE 100 MG TABLET PO SCH (15:30)
[2017-02-01 16:00] VITALS: BP 135/63
[2017-02-01] MEDS: DIVALPROEX SPRINKLE 125 MG CAP.SPRINK PO SCH ×2 (16:42→21:31)
[2017-02-01] MEDS: QUETIAPINE FUMARATE 100 MG TABLET PO SCH (16:42)
[2017-02-01] MEDS ORDERED: ALBUTEROL SULFATE 1.25 MG/3 ML NEBU IH PRN (17:15)
[2017-02-01] MEDS ORDERED: MAGNESIUM HYDROXIDE 30 ML LIQUID UDC PO PRN ×3 (17:15)
[2017-02-01] MEDS ORDERED: MAG HYDROX/AL HYDROX/SIMETH 30 ML LIQUID UDC PO PRN ×2 (17:15)
[2017-02-01] MEDS ORDERED: HYDROCODONE/APAP 5-325MG TABLET PO PRN (17:15)
[2017-02-01] MEDS ORDERED: CLONIDINE HCL 0.1 MG TABLET PO PRN (17:15)
[2017-02-01] MEDS ORDERED: ACETAMINOPHEN 325 MG TABLET PO PRN ×2 (17:15)
[2017-02-01] MEDS: AMPICILLIN 500 MG CAPSULE PO SCH ×2 (17:43→23:18)
--- NOTE | 2017-02-01 18:30 | NUR ---
Calm and cooperative. Eating dinner fairly and compliant with taking medication. Restarted on Ampicillin po
[2017-02-01 20:03] VITALS: BP 126/65
[2017-02-01] MEDS: MIRTAZAPINE 15 MG TABLET PO SCH (21:31)
[2017-02-01] MEDS: SIMVASTATIN 20 MG TABLET PO SCH (21:31)
[2017-02-01] MEDS: DOCUSATE SODIUM 100 MG CAPSULE PO SCH (21:31)
[2017-02-01] MEDS: METOPROLOL TARTRATE 25 MG TABLET PO SCH (21:32)
--- NOTE | 2017-02-01 22:00 | NUR ---
received to care, intermittently pacing the hallway, intrusive with peers and staff, difficult to redirect. ARRON mak was given at 1948, and, by 2099, she appeared calmer, and more manageable. compliant with medications and staff direction. as of 2199, she appears to be asleep, in bed. no distress noted. will continue to monitor closely.
--- NOTE | 2017-02-02 01:02 | NUR ---
PRN restoril given for insomnia
--- NOTE | 2017-02-02 01:35 | NUR ---
appears to be asleep. no distress noted.
--- NOTE | 2017-02-02 06:00 | NUR ---
slept 5.5 hours, total. continues to sleep. no distress noted.
[2017-02-02] MEDS: AMPICILLIN 500 MG CAPSULE PO SCH ×3 (06:20→17:13)
[2017-02-02] MEDS: PANTOPRAZOLE SODIUM 40 MG TABLET.DR PO SCH (06:24)
[2017-02-02 07:30] VITALS: BP 128/66
[2017-02-02] MEDS: DOCUSATE SODIUM 100 MG CAPSULE PO SCH ×2 (08:49→20:01)
[2017-02-02] MEDS: FERROUS SULFATE 325 MG TABEC PO SCH (08:49)
[2017-02-02] MEDS: DIVALPROEX SPRINKLE 125 MG CAP.SPRINK PO SCH ×2 (08:49→20:00)
[2017-02-02] MEDS: ASPIRIN 81 MG TAB.CHEW PO SCH (08:50)
[2017-02-02] MEDS: LISINOPRIL 10 MG TABLET PO SCH (08:50)
[2017-02-02] MEDS: QUETIAPINE FUMARATE 100 MG TABLET PO SCH ×3 (09:14→17:12)
[2017-02-02] MEDS: METOPROLOL TARTRATE 25 MG TABLET PO SCH ×2 (09:15→20:00)
[2017-02-02 15:00] VITALS: BP 120/62
[2017-02-02 19:38] VITALS: BP 118/61
[2017-02-02] MEDS: MIRTAZAPINE 15 MG TABLET PO SCH (20:00)
[2017-02-02] MEDS: SIMVASTATIN 20 MG TABLET PO SCH (20:00)
--- NOTE | 2017-02-02 22:00 | NUR ---
received to care, calm, and pleasant, upon approach. interacts minimally with peers, but is able to make her needs known, to staff. compliant with medications, and staff direction. as of 2199, she appears to be asleep, in bed. no distress noted. will continue to monitor closely.
--- NOTE | 2017-02-03 06:00 | NUR ---
slept 9.5 hours, total. assisted with AM care, and shower. currently sitting in her room. no distress noted. will continue to monitor closely.
[2017-02-03] MEDS: PANTOPRAZOLE SODIUM 40 MG TABLET.DR PO SCH (06:11)
[2017-02-03] MEDS: AMPICILLIN 500 MG CAPSULE PO SCH ×5 (06:11→23:56)
[2017-02-03 07:30] VITALS: BP 127/60
[2017-02-03] MEDS: ASPIRIN 81 MG TAB.CHEW PO SCH (08:44)
[2017-02-03] MEDS: METOPROLOL TARTRATE 25 MG TABLET PO SCH ×2 (08:45→20:15)
[2017-02-03] MEDS: FERROUS SULFATE 325 MG TABEC PO SCH (08:46)
[2017-02-03] MEDS: QUETIAPINE FUMARATE 100 MG TABLET PO SCH ×3 (08:46→17:00)
[2017-02-03] MEDS: DIVALPROEX SPRINKLE 125 MG CAP.SPRINK PO SCH ×2 (08:46→20:15)
[2017-02-03] MEDS: LISINOPRIL 10 MG TABLET PO SCH (08:47)
--- NOTE | 2017-02-03 09:15 | NUR ---
RECEIVED TO CARE, PT SITTING IN DAY ROOM, CALM AND QUIET, PT TOOK ALL AM MEDS WITH NO PROBLEM, NO DISTRESS, WILL CONTINUE TO MONITOR.
[2017-02-03] MEDS: DOCUSATE SODIUM 100 MG CAPSULE PO SCH ×2 (09:22→20:15)
[2017-02-03 15:00] VITALS: BP 135/65
--- NOTE | 2017-02-03 17:54 | NUR ---
PT TOOK ALL EVENING MEDS, REMAINS ISOLATIVE IN ROOM, NO DISTRESS, PT IS CALM AND PLEASANT, NO OUTBURST NOTED.
[2017-02-03 20:15] VITALS: BP 143/72
[2017-02-03] MEDS: SIMVASTATIN 20 MG TABLET PO SCH (20:15)
[2017-02-03] MEDS: MIRTAZAPINE 15 MG TABLET PO SCH (20:15)
[2017-02-04] MEDS: PANTOPRAZOLE SODIUM 40 MG TABLET.DR PO SCH (06:06)
[2017-02-04] MEDS: AMPICILLIN 500 MG CAPSULE PO SCH ×3 (06:06→17:06)
[2017-02-04 07:30] VITALS: BP 145/80
[2017-02-04] MEDS: DIVALPROEX SPRINKLE 125 MG CAP.SPRINK PO SCH ×2 (08:14→20:09)
[2017-02-04] MEDS: FERROUS SULFATE 325 MG TABEC PO SCH (08:14)
[2017-02-04] MEDS: ASPIRIN 81 MG TAB.CHEW PO SCH (08:14)
[2017-02-04] MEDS: LISINOPRIL 10 MG TABLET PO SCH (08:15)
[2017-02-04] MEDS: DOCUSATE SODIUM 100 MG CAPSULE PO SCH ×2 (08:15→20:09)
[2017-02-04] MEDS: QUETIAPINE FUMARATE 100 MG TABLET PO SCH ×3 (08:15→16:18)
[2017-02-04] MEDS: METOPROLOL TARTRATE 25 MG TABLET PO SCH ×2 (08:16→20:09)
[2017-02-04 15:16] VITALS: BP 128/63
[2017-02-04 20:06] VITALS: BP 136/71
[2017-02-04] MEDS: SIMVASTATIN 20 MG TABLET PO SCH (20:09)
[2017-02-04] MEDS: MIRTAZAPINE 15 MG TABLET PO SCH (20:09)
[2017-02-05] MEDS: AMPICILLIN 500 MG CAPSULE PO SCH ×5 (00:18→23:56)
[2017-02-05] MEDS: CLONAZEPAM 0.5 MG TABLET PO PRN (05:51)
[2017-02-05] MEDS: PANTOPRAZOLE SODIUM 40 MG TABLET.DR PO SCH (06:08)
[2017-02-05 07:30] VITALS: BP 148/88
[2017-02-05] MEDS: DIVALPROEX SPRINKLE 125 MG CAP.SPRINK PO SCH ×3 (08:37→23:56)
[2017-02-05] MEDS: DOCUSATE SODIUM 100 MG CAPSULE PO SCH ×3 (08:38→23:56)
[2017-02-05] MEDS: QUETIAPINE FUMARATE 100 MG TABLET PO SCH ×3 (08:38→16:57)
[2017-02-05] MEDS: FERROUS SULFATE 325 MG TABEC PO SCH (08:38)
[2017-02-05] MEDS: ASPIRIN 81 MG TAB.CHEW PO SCH (08:38)
[2017-02-05] MEDS: METOPROLOL TARTRATE 25 MG TABLET PO SCH ×2 (08:40→20:56)
[2017-02-05] MEDS: LISINOPRIL 10 MG TABLET PO SCH (08:41)
[2017-02-05 15:39] VITALS: BP 94/59
[2017-02-05 20:10] VITALS: BP 97/58
[2017-02-05] MEDS: SIMVASTATIN 20 MG TABLET PO SCH ×2 (21:00→23:57)
[2017-02-05] MEDS: MIRTAZAPINE 15 MG TABLET PO SCH ×2 (21:00→23:57)
--- NOTE | 2017-02-05 22:00 | NUR ---
received to care, lying in bed, asleep, easy to awaken, but goes right back to sleep, after being engaged. vital signs are stable. as of 2199, she remains asleep, so her bedtime medications were held, for now. no distress noted. will continue to monitor closely.
--- NOTE | 2017-02-06 00:15 | NUR ---
bedtime medications were given at 2356. as of 14, she appears to be back asleep. no distress noted. will continue to monitor closely.
--- NOTE | 2017-02-06 00:15 | NUR ---
bedtime medications were given at 2356. as of 11 Addendum: 02/06/17 at 0056 by NARDA CARREON LVN error/please disregard note
--- NOTE | 2017-02-06 03:44 | NUR ---
PRN norco given for severe pain to left shoulder
--- NOTE | 2017-02-06 04:30 | NUR ---
appears to be asleep. no distress noted.
--- NOTE | 2017-02-06 06:00 | NUR ---
slept 10 hours, total.
[2017-02-06] MEDS: PANTOPRAZOLE SODIUM 40 MG TABLET.DR PO SCH (06:25)
[2017-02-06] MEDS: AMPICILLIN 500 MG CAPSULE PO SCH ×3 (06:25→17:12)
[2017-02-06 07:37] VITALS: BP 138/66
[2017-02-06] MEDS: FERROUS SULFATE 325 MG TABEC PO SCH (08:22)
[2017-02-06] MEDS: ASPIRIN 81 MG TAB.CHEW PO SCH (08:22)
[2017-02-06] MEDS: DIVALPROEX SPRINKLE 125 MG CAP.SPRINK PO SCH ×2 (08:22→20:22)
[2017-02-06] MEDS: QUETIAPINE FUMARATE 100 MG TABLET PO SCH ×3 (08:22→17:12)
[2017-02-06] MEDS: DOCUSATE SODIUM 100 MG CAPSULE PO SCH ×2 (08:22→20:23)
[2017-02-06] MEDS: METOPROLOL TARTRATE 25 MG TABLET PO SCH ×2 (08:22→20:23)
[2017-02-06] MEDS: LISINOPRIL 20 MG TABLET PO SCH (08:23)
[2017-02-06] MEDS ORDERED: LISINOPRIL 10 MG TABLET PO SCH (09:00)
[2017-02-06 16:19] VITALS: BP 98/50
[2017-02-06 19:55] VITALS: BP 125/65
[2017-02-06] MEDS: MIRTAZAPINE 15 MG TABLET PO SCH (20:23)
[2017-02-06] MEDS: SIMVASTATIN 20 MG TABLET PO SCH (20:23)
--- NOTE | 2017-02-06 22:00 | NUR ---
received to care, calm, and pleasant, upon approach. compliant with medications, and staff direction. as of 2200, she appears to be asleep, in bed. no distress noted. will continue to monitor closely.
--- NOTE | 2017-02-07 06:00 | NUR ---
slept 8.0 hours, total. assisted with AM care, and shower. currently sitting in her room. no distress noted. will continue to monitor closely.
[2017-02-07] MEDS: PANTOPRAZOLE SODIUM 40 MG TABLET.DR PO SCH (06:12)
[2017-02-07 07:30] VITALS: BP 120/65
[2017-02-07 07:33] LABS: BASOPHILS % (AUTO) 0.3 % (0.0-2.0); EOSINOPHILS # (AUTO) 0.1 K/uL (0.0-0.7); EOSINOPHILS % (AUTO) 1.4 % (0.0-7.0); HEMATOCRIT 31.5 % (37-47); HEMOGLOBIN 10.4 G/DL (12.0-16.0); LYMPHOCYTES # (AUTO) 1.1 K/UL (0.8-4.8); LYMPHOCYTES % (AUTO) 22.3 % (20.5-51.5); MEAN CORPUSCULAR HEMOGLOBIN 31.2 UUG (27.0-31.0); MEAN CORPUSCULAR HGB CONC 33 g/dL (32.0-37.0); MEAN CORPUSCULAR VOLUME 94.8 FL (81.0-99.0); MONOCYTES # (AUTO) 0.3 K/UL (0.1-1.30); MONOCYTES % (AUTO) 6.8 % (0.0-11.0); NEUTROPHILS # (AUTO) 3.6 K/UL (1.8-8.9); NEUTROPHILS % (AUTO) 69.2 % (38.5-71.5); PLATELET COUNT (AUTO) 196 K/UL (150-450); RED BLOOD CELL COUNT(AUTO) 3.32 MIL/UL (4.2-5.4); WHITE BLOOD COUNT (AUTO) 5.1 K/UL (4.0-11.2)
[2017-02-07 07:52] LABS: ALANINE AMINOTRANSFERASE 17 U/L (14-59); ALKALINE PHOSPHATASE 98 U/L (50-136); ASPARTATE AMINOTRANSFERASE 15 U/L (15-37); BILIRUBIN,TOTAL 0.4 mg/dL (0.2-1.0); CARBON DIOXIDE 32 mmol/L (21-32); CHLORIDE 100 mmol/L (98-107); CREATININE 0.6 mg/dL (0.6-1.3); GLUCOSE 94 mg/dL (74-106); PHOSPHOROUS 3.6 mg/dL (2.5-4.9); POTASSIUM 4.4 mmol/L (3.5-5.1); TOTAL PROTEIN, SERUM 7.4 g/dL (6.4-8.2); UREA NITROGEN, BLOOD 15 mg/dL (7-18)
[2017-02-07] MEDS: DOCUSATE SODIUM 100 MG CAPSULE PO SCH (08:11)
[2017-02-07] MEDS: LISINOPRIL 20 MG TABLET PO SCH (08:11)
[2017-02-07] MEDS: DIVALPROEX SPRINKLE 125 MG CAP.SPRINK PO SCH (08:12)
[2017-02-07] MEDS: QUETIAPINE FUMARATE 100 MG TABLET PO SCH ×2 (08:12→12:12)
[2017-02-07] MEDS: FERROUS SULFATE 325 MG TABEC PO SCH (08:12)
[2017-02-07 08:13] VITALS: BP 120/65
[2017-02-07] MEDS: ASPIRIN 81 MG TAB.CHEW PO SCH (08:13)
[2017-02-07] MEDS: METOPROLOL TARTRATE 25 MG TABLET PO SCH (08:13)
--- NOTE | 2017-02-07 11:24 | NUR ---
DC Note: Patient will be discharged to [facility] [[address] [place] [address]; [phone]] via ambulance at 1:00 pm. Spoke with Caitlyn at the facility who stated they would accept the patient today. Spoke with patient's daughter, Arminda [phone] who is aware and agreeable with discharge plans. Patient is aware and agreeable with discharge plans. Patient will follow-up with ([facility]) and (Psychiatrist).
--- NOTE | 2017-02-07 14:10 | NUR ---
[facility] called and report given to shana Clark. All questions answered. awaiting for patient to be picker at 1410.
--- NOTE | 2017-02-07 14:31 | NUR ---
LINDA instructions and paper work prepared and finished by international bank manager.
--- NOTE | 2017-02-07 14:53 | NUR ---
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 Patient left AAOx1-2 vitals stable, no c/of any discomfort.
== END 2017-02-07 15:05 | DRG 885 ==
LOC: ER 20:07 → GPS 23:22
PROVIDERS: ADMIT Psychiatry & Neurology Psychiatry; ATTEND Internal Medicine
DX: F25.9 Schizoaffective disorder, unspecified (principal); I11.0 Hypertensive heart disease with heart failure; D68.59 Other primary thrombophilia; F03.90 Unspecified dementia, unspecified severity, without behavioral disturbance, psychotic disturbance, mood disturbance, and anxiety; I50.32 Chronic diastolic (congestive) heart failure; N39.0 Urinary tract infection, site not specified; F29 Unspecified psychosis not due to a substance or known physiological condition; E78.5 Hyperlipidemia, unspecified; K21.9 Gastro-esophageal reflux disease without esophagitis; D64.9 Anemia, unspecified; M85.80 Other specified disorders of bone density and structure, unspecified site; M47.814 Spondylosis without myelopathy or radiculopathy, thoracic region; E61.1 Iron deficiency; M81.0 Age-related osteoporosis without current pathological fracture
CPT/HCPCS: 36415; 70030-TC; 71010; 83735; 84100; 84443; 85025; 93005; A4663; G0480; G0480-TC; J0290

== ENCOUNTER 2017-03-20 15:22 | Inpatient (IN) | payer MEDICARE, MEDICAID ==
[~2017-03-20] VITALS: Ht 142.2 cm; Wt 52.6 kg
[~2017-03-20 15:22] MED LIST changes: +ALBU1.25 IH; -ALBU1.25 NEB; -AMPI2VIA IV; +AMPI500C11 PO; -DOCU100C36 PO; -DULCOLAX 10MG SUPP; +FERR-58 PO; -MENT71OI TOP; -MIRT15TA7 PO; -QUET25TA PO; +SIMV20TA2 PO; -SIMV40TA2 PO
[2017-03-20] MEDS ORDERED: MIRT15TA PO (15:59)
[2017-03-20] MEDS ORDERED: CALC1TAB30 PO (15:59)
[2017-03-20] MEDS ORDERED: DIVA125C PO (15:59)
[2017-03-20] MEDS ORDERED: CRAN405C PO (15:59)
[2017-03-20] MEDS ORDERED: QUET100T PO (15:59)
[2017-03-20] MEDS ORDERED: LISI-603 PO (15:59)
[2017-03-20 16:21] LABS: BASOPHILS % (AUTO) 0.6 % (0.0-2.0); EOSINOPHILS # (AUTO) 0.1 K/uL (0.0-0.7); EOSINOPHILS % (AUTO) 1.7 % (0.0-7.0); HEMATOCRIT 30.6 % (37-47); LYMPHOCYTES # (AUTO) 1.7 K/UL (0.8-4.8); LYMPHOCYTES % (AUTO) 37.5 % (20.5-51.5); MEAN CORPUSCULAR HGB CONC 33 g/dL (32.0-37.0); MEAN CORPUSCULAR VOLUME 91.8 FL (81.0-99.0); MONOCYTES # (AUTO) 0.5 K/UL (0.1-1.30); MONOCYTES % (AUTO) 9.9 % (0.0-11.0); NEUTROPHILS # (AUTO) 2.3 K/UL (1.8-8.9); NEUTROPHILS % (AUTO) 50.3 % (38.5-71.5); PLATELET COUNT (AUTO) 164 K/UL (150-450); RED BLOOD CELL COUNT(AUTO) 3.33 MIL/UL (4.2-5.4); WHITE BLOOD COUNT (AUTO) 4.6 K/UL (4.0-11.2)
[2017-03-20 16:35] LABS: CARBON DIOXIDE 27 mmol/L (21-32); CHLORIDE 97 mmol/L (98-107); CREATININE 0.5 mg/dL (0.6-1.3); GLUCOSE 94 mg/dL (74-106); POTASSIUM 4.2 mmol/L (3.5-5.1); UREA NITROGEN, BLOOD 17 mg/dL (7-18)
[2017-03-20 16:43] LABS: THYROID STIMULATING HORMONE 1.566 mIU/mL (0.358-3.740)
[2017-03-20 16:48] LABS: ETHANOL < 3 MG/DL (0-0)
[2017-03-20 16:54] LABS: ACETAMINOPHEN < 2.0 ug/mL (10-30); ALANINE AMINOTRANSFERASE 17 U/L (14-59); ALKALINE PHOSPHATASE 83 U/L (50-136); ASPARTATE AMINOTRANSFERASE 15 U/L (15-37); BILIRUBIN,DIRECT 0.1 mg/dL (0.0-0.2); BILIRUBIN,TOTAL 0.3 mg/dL (0.2-1.0); TOTAL PROTEIN, SERUM 6.4 g/dL (6.4-8.2)
[2017-03-20] MEDS ORDERED: CYAN10009 PO (17:14)
[2017-03-20] MEDS ORDERED: CHOL10005 PO (17:14)
[2017-03-20] MEDS ORDERED: ACET-2154 PO (17:14)
--- NOTE | 2017-03-20 17:30 | NUR ---
pt sitting on the chair watching tv at this point
--- NOTE | 2017-03-20 17:58 | NUR ---
pt transfered to u, pt in good mod, drinking hospital juice and looking at the magazine.
[2017-03-20 18:00] VITALS: BP 122/72
[2017-03-20] MEDS ORDERED: ZOLPIDEM 5 MG TABLET PO PRN (18:30)
[2017-03-20] MEDS ORDERED: MAG HYDROX/AL HYDROX/SIMETH 30 ML LIQUID UDC PO PRN (18:30)
[2017-03-20] MEDS ORDERED: MAGNESIUM HYDROXIDE 30 ML LIQUID UDC PO PRN ×2 (18:30→19:00)
[2017-03-20] MEDS ORDERED: ACETAMINOPHEN 325 MG TABLET PO PRN (19:00)
[2017-03-20] MEDS ORDERED: ALBUTEROL SULFATE 1.25 MG/3 ML NEBU IH PRN (19:00)
[2017-03-20] MEDS ORDERED: CLONIDINE HCL 0.1 MG TABLET PO PRN (19:00)
--- NOTE | 2017-03-20 20:15 | NUR ---
received to care, at 1800, from the emergency room, on a 72 hour hold for gravely disabled. pt is a resident of [facility], where she was reportedly throwing objects, and combative with peers, and staff. upon arrival, she was calm, and cooperative. oriented to person, and place(says she is in a hospital, somewhere) as of 2014, she is in bed, calm, and cooperative. no distress noted. will continue to monitor closely.
[2017-03-20 20:43] VITALS: BP 122/59
[2017-03-20] MEDS: SIMVASTATIN 20 MG TABLET PO SCH (21:09)
[2017-03-20] MEDS: DOCUSATE SODIUM 100 MG CAPSULE PO SCH (21:09)
[2017-03-20] MEDS: METOPROLOL TARTRATE 25 MG TABLET PO SCH (21:09)
--- NOTE | 2017-03-20 22:00 | NUR ---
calm, pleasant, and cooperative with medications and staff direction. as of 2200, she appears to be asleep. no distress noted. will continue to monitor closely.
--- NOTE | 2017-03-21 00:20 | NUR ---
pt is now awake, annd appears agitated, in the bed. she was offered a PRN ambien, but she refused, and became verbally hostile, yelling obscenities, and wandering the hallway, being intrusive, difficult to redirect. she was placed in the gerichair, and assisted to the nurses station, for closer monitoring. currently talking to herself, and cursing, attempting to disrobe. requiring constant supervision. will continue to monitor closely.
[2017-03-21] MEDS: HYDROCODONE/APAP 5-325MG TABLET PO PRN ×2 (03:55→20:10)
--- NOTE | 2017-03-21 06:00 | NUR ---
slept 6.0 hours, total. assisted with am care, and shower. curently in bed. no distress noted.
[2017-03-21] MEDS: PANTOPRAZOLE SODIUM 40 MG TABLET.DR PO SCH (06:34)
[2017-03-21] MEDS: DOCUSATE SODIUM 100 MG CAPSULE PO SCH ×2 (08:29→20:00)
[2017-03-21] MEDS: ASPIRIN 81 MG TAB.CHEW PO SCH (08:29)
[2017-03-21] MEDS: CALCIUM CARB/VITAMIN D 500MG-200UNITS TABLET PO SCH ×2 (08:29→17:18)
[2017-03-21] MEDS: LISINOPRIL 20 MG TABLET PO SCH (08:30)
[2017-03-21] MEDS: CYANOCOBALAMIN 1,000 MCG TABLET PO SCH (08:30)
[2017-03-21] MEDS: METOPROLOL TARTRATE 25 MG TABLET PO SCH ×2 (08:33→20:01)
[2017-03-21] MEDS: QUETIAPINE FUMARATE 100 MG TABLET PO SCH ×2 (12:28→17:18)
[2017-03-21 15:21] VITALS: BP 111/60
[2017-03-21] MEDS: SIMVASTATIN 20 MG TABLET PO SCH (20:00)
[2017-03-21] MEDS: MIRTAZAPINE 15 MG TABLET PO SCH (20:00)
[2017-03-21] MEDS: DIVALPROEX SPRINKLE 125 MG CAP.SPRINK PO SCH (20:00)
[2017-03-21 20:35] VITALS: BP 131/75
--- NOTE | 2017-03-21 22:00 | NUR ---
received to care, lying in bed, isolative, but pleasant , upon approach. compliant with medications, and staff direction. PRN norco was given at 2009, for 6/10 pain to left shoulder. by 2099, she denied any further pain, or discomfort. as of 2199, she appears to be asleep. no distress noted. will continue to monitor closely.
[2017-03-22] MEDS: PANTOPRAZOLE SODIUM 40 MG TABLET.DR PO SCH (06:04)
[2017-03-22] MEDS: ACETAMINOPHEN 325 MG TABLET PO PRN (06:14)
--- NOTE | 2017-03-22 06:14 | NUR ---
slept 8.0 hours, total. is now awake, in the tv room. PRN tylenpl was given for left shoulder pain, 09/11.
[2017-03-22 07:30] VITALS: BP 117/73
[2017-03-22] MEDS: CYANOCOBALAMIN 1,000 MCG TABLET PO SCH (08:27)
[2017-03-22] MEDS: DIVALPROEX SPRINKLE 125 MG CAP.SPRINK PO SCH ×2 (08:27→20:23)
[2017-03-22] MEDS: ASPIRIN 81 MG TAB.CHEW PO SCH (08:28)
[2017-03-22] MEDS: CALCIUM CARB/VITAMIN D 500MG-200UNITS TABLET PO SCH ×2 (08:28→17:28)
[2017-03-22] MEDS: METOPROLOL TARTRATE 25 MG TABLET PO SCH ×2 (08:28→20:24)
[2017-03-22] MEDS: QUETIAPINE FUMARATE 100 MG TABLET PO SCH ×3 (08:28→17:28)
[2017-03-22] MEDS: DOCUSATE SODIUM 100 MG CAPSULE PO SCH ×2 (08:28→20:23)
[2017-03-22] MEDS: LISINOPRIL 20 MG TABLET PO SCH (11:29)
[2017-03-22 15:00] VITALS: BP 136/86
--- NOTE | 2017-03-22 15:14 | NUR ---
Initial discharge instructions: Patient was residing at [facility] [[address], [place],[address];[phone]].Pt reports she does not want to return,however does not have a place to go.SHOLA will speak with pt's daughter,Arminda Thomas to discuss discharge plans.SHOLA called Natalie at the facility and is waiting to hear back if the patient will be accepted back once stable.SHOLA will speak with pt,daughter,and MD regarding appropriate discharge plans.SW will form a safe and proper discharge.
[2017-03-22 20:21] VITALS: BP 131/68
[2017-03-22] MEDS: MIRTAZAPINE 15 MG TABLET PO SCH (20:23)
[2017-03-22] MEDS: SIMVASTATIN 20 MG TABLET PO SCH (20:23)
--- NOTE | 2017-03-22 20:54 | NUR ---
PATIENT RECEIVED IN BED AWAKE. PATIENT COOPERATIVE WITH CARE. PATIENT COMPLAINT WITH MEDICATION. NO AGGRESSIVE OR COMBATIVE BEHAVIOR NOTED WILL CONTINUE TO MONITOR AND REDIRECT NEEDED. NO AGITATION NOTED WILL CONTINUE TO MONITOR. PATIENT DENIES PAIN AT THIS TIME, WILL CONTINUE TO MONITOR. BED IN LOWEST POSITION, BED LOCKED, AND BED ALARM ON WHILE IN BED.
[2017-03-23 07:30] VITALS: BP 134/74
[2017-03-23] MEDS: CYANOCOBALAMIN 1,000 MCG TABLET PO SCH (09:00)
[2017-03-23] MEDS: LISINOPRIL 20 MG TABLET PO SCH (09:00)
[2017-03-23] MEDS: ASPIRIN 81 MG TAB.CHEW PO SCH (09:00)
[2017-03-23] MEDS: QUETIAPINE FUMARATE 100 MG TABLET PO SCH ×2 (12:39→16:34)
[2017-03-23 15:07] VITALS: BP 133/75
[2017-03-23] MEDS: CALCIUM CARB/VITAMIN D 500MG-200UNITS TABLET PO SCH (16:35)
[2017-03-23] MEDS: ACETAMINOPHEN 325 MG TABLET PO PRN (19:55)
[2017-03-23 20:06] VITALS: BP 134/80
[2017-03-23] MEDS: DIVALPROEX SPRINKLE 125 MG CAP.SPRINK PO SCH (20:09)
[2017-03-23] MEDS: DOCUSATE SODIUM 100 MG CAPSULE PO SCH ×2 (20:09→21:38)
[2017-03-23] MEDS: SIMVASTATIN 20 MG TABLET PO SCH (20:10)
[2017-03-23] MEDS: MIRTAZAPINE 15 MG TABLET PO SCH (20:10)
[2017-03-23] MEDS: METOPROLOL TARTRATE 25 MG TABLET PO SCH (20:10)
[2017-03-24] MEDS: PANTOPRAZOLE SODIUM 40 MG TABLET.DR PO SCH (06:22)
[2017-03-24 07:30] VITALS: BP 137/77
[2017-03-24] MEDS: DOCUSATE SODIUM 100 MG CAPSULE PO SCH ×2 (09:00→09:03)
[2017-03-24] MEDS: QUETIAPINE FUMARATE 100 MG TABLET PO SCH ×3 (09:04→17:56)
[2017-03-24] MEDS: CYANOCOBALAMIN 1,000 MCG TABLET PO SCH (09:04)
[2017-03-24] MEDS: DIVALPROEX SPRINKLE 125 MG CAP.SPRINK PO SCH ×2 (09:04→20:12)
[2017-03-24] MEDS: ASPIRIN 81 MG TAB.CHEW PO SCH (09:04)
[2017-03-24] MEDS: CALCIUM CARB/VITAMIN D 500MG-200UNITS TABLET PO SCH ×2 (09:04→17:56)
[2017-03-24] MEDS: LISINOPRIL 20 MG TABLET PO SCH (09:05)
[2017-03-24] MEDS: METOPROLOL TARTRATE 25 MG TABLET PO SCH ×2 (09:06→20:13)
[2017-03-24 15:00] VITALS: BP 139/69
[2017-03-24] MEDS: MIRTAZAPINE 15 MG TABLET PO SCH (20:13)
[2017-03-24] MEDS: SIMVASTATIN 20 MG TABLET PO SCH (20:14)
[2017-03-24 20:20] VITALS: BP 133/70
[2017-03-25] MEDS: PANTOPRAZOLE SODIUM 40 MG TABLET.DR PO SCH (06:59)
[2017-03-25 07:30] VITALS: BP 143/91
[2017-03-25] MEDS: CALCIUM CARB/VITAMIN D 500MG-200UNITS TABLET PO SCH ×2 (09:03→17:32)
[2017-03-25] MEDS: QUETIAPINE FUMARATE 100 MG TABLET PO SCH ×3 (09:03→17:32)
[2017-03-25] MEDS: ASPIRIN 81 MG TAB.CHEW PO SCH (09:03)
[2017-03-25] MEDS: DIVALPROEX SPRINKLE 125 MG CAP.SPRINK PO SCH ×2 (09:03→17:32)
[2017-03-25] MEDS: DOCUSATE SODIUM 100 MG CAPSULE PO SCH ×2 (09:03→20:11)
[2017-03-25] MEDS: CYANOCOBALAMIN 1,000 MCG TABLET PO SCH (09:04)
[2017-03-25] MEDS: METOPROLOL TARTRATE 25 MG TABLET PO SCH ×2 (09:04→20:16)
[2017-03-25] MEDS: LISINOPRIL 20 MG TABLET PO SCH (09:06)
[2017-03-25 16:35] VITALS: BP 95/57
[2017-03-25] MEDS: SIMVASTATIN 20 MG TABLET PO SCH (20:11)
[2017-03-25] MEDS: MIRTAZAPINE 15 MG TABLET PO SCH (20:11)
[2017-03-25 20:36] VITALS: BP 127/76
[2017-03-25] MEDS: LORAZEPAM 1 MG TABLET PO PRN (22:22)
[2017-03-26] MEDS: PANTOPRAZOLE SODIUM 40 MG TABLET.DR PO SCH (06:16)
[2017-03-26 07:30] VITALS: BP 164/85
[2017-03-26] MEDS: DOCUSATE SODIUM 100 MG CAPSULE PO SCH ×2 (09:39→20:07)
[2017-03-26] MEDS: ASPIRIN 81 MG TAB.CHEW PO SCH (09:39)
[2017-03-26] MEDS: QUETIAPINE FUMARATE 100 MG TABLET PO SCH ×3 (09:39→17:53)
[2017-03-26] MEDS: CALCIUM CARB/VITAMIN D 500MG-200UNITS TABLET PO SCH ×2 (09:39→17:53)
[2017-03-26] MEDS: CYANOCOBALAMIN 1,000 MCG TABLET PO SCH (09:40)
[2017-03-26] MEDS: METOPROLOL TARTRATE 25 MG TABLET PO SCH ×2 (09:40→20:08)
[2017-03-26] MEDS: DIVALPROEX SPRINKLE 125 MG CAP.SPRINK PO SCH ×3 (09:40→17:53)
[2017-03-26] MEDS: LISINOPRIL 20 MG TABLET PO SCH (09:59)
[2017-03-26 16:27] VITALS: BP 105/60
[2017-03-26] MEDS: MIRTAZAPINE 15 MG TABLET PO SCH (20:07)
[2017-03-26] MEDS: SIMVASTATIN 20 MG TABLET PO SCH (20:07)
[2017-03-26 20:49] VITALS: BP 140/67
[2017-03-26] MEDS: LORAZEPAM 1 MG TABLET PO PRN (22:39)
[2017-03-27] MEDS: PANTOPRAZOLE SODIUM 40 MG TABLET.DR PO SCH (06:36)
[2017-03-27 07:30] VITALS: BP 136/70
[2017-03-27] MEDS: CALCIUM CARB/VITAMIN D 500MG-200UNITS TABLET PO SCH ×2 (08:07→17:06)
[2017-03-27] MEDS: CYANOCOBALAMIN 1,000 MCG TABLET PO SCH (08:07)
[2017-03-27] MEDS: ASPIRIN 81 MG TAB.CHEW PO SCH (08:07)
[2017-03-27] MEDS: QUETIAPINE FUMARATE 100 MG TABLET PO SCH ×3 (08:08→17:06)
[2017-03-27] MEDS: DIVALPROEX SPRINKLE 125 MG CAP.SPRINK PO SCH ×3 (08:08→17:06)
[2017-03-27] MEDS: LISINOPRIL 20 MG TABLET PO SCH (08:08)
[2017-03-27] MEDS: METOPROLOL TARTRATE 25 MG TABLET PO SCH ×2 (08:09→20:03)
[2017-03-27] MEDS: DOCUSATE SODIUM 100 MG CAPSULE PO SCH ×2 (08:13→20:03)
[2017-03-27 16:54] VITALS: BP 122/70
[2017-03-27 20:02] VITALS: BP 118/69
[2017-03-27] MEDS: MIRTAZAPINE 15 MG TABLET PO SCH (20:02)
[2017-03-27] MEDS: SIMVASTATIN 10 MG TABLET PO SCH (20:03)
[2017-03-28] MEDS: PANTOPRAZOLE SODIUM 40 MG TABLET.DR PO SCH (06:36)
[2017-03-28 07:30] VITALS: BP 175/96
[2017-03-28] MEDS: DIVALPROEX SPRINKLE 125 MG CAP.SPRINK PO SCH ×3 (08:01→16:08)
[2017-03-28] MEDS: FERROUS SULFATE 325 MG TABEC PO SCH (08:01)
[2017-03-28] MEDS: CYANOCOBALAMIN 1,000 MCG TABLET PO SCH (08:01)
[2017-03-28] MEDS: LISINOPRIL 20 MG TABLET PO SCH (08:03)
[2017-03-28] MEDS: QUETIAPINE FUMARATE 100 MG TABLET PO SCH ×3 (08:03→16:08)
[2017-03-28] MEDS: CALCIUM CARB/VITAMIN D 500MG-200UNITS TABLET PO SCH ×2 (08:03→16:08)
[2017-03-28] MEDS: ASPIRIN 81 MG TAB.CHEW PO SCH (08:03)
[2017-03-28] MEDS: DOCUSATE SODIUM 100 MG CAPSULE PO SCH ×3 (08:03→23:50)
[2017-03-28] MEDS: METOPROLOL TARTRATE 25 MG TABLET PO SCH ×3 (08:03→23:50)
[2017-03-28 10:29] LABS: *BILIRUBIN,URIN NEGATIVE (NEGATIVE); *BLOOD, URINE NEGATIVE (NEGATIVE); *CLARITY,URINE CLOUDY (CLEAR); *COLOR,URINE YELLOW (YELLOW); *KETONES,URINE NEGATIVE (NEGATIVE); *PROTEIN,URINE NEGATIVE (NEGATIVE); *UROBILINOGEN,URINE 0.2 E.U./dl (NORMAL); LEUKOCYTE ESTERASE ,URINE 2+ (NEGATIVE); NITRITE, URINE POSITIVE (NEGATIVE); UGLUCOSE NEGATIVE (NEGATIVE)
[2017-03-28 10:54] LABS: RBC,URINE 0-3 /HPF (0-3)
[2017-03-28 10:55] LABS: BACTERIA,URINE MANY /HPF (NONE SEEN); SQUAMOUS EPITHELIAL CELL,UR FEW /HPF (NONE SEEN); WBC,URINE 20-50 /HPF (0-3)
[2017-03-28 15:06] VITALS: BP 125/67
[2017-03-28 20:30] VITALS: BP 120/62
[2017-03-28] MEDS: MIRTAZAPINE 15 MG TABLET PO SCH ×2 (21:58→23:50)
[2017-03-28] MEDS: SIMVASTATIN 10 MG TABLET PO SCH ×2 (21:58→23:50)
[2017-03-28] MEDS: AMPICILLIN 500 MG CAPSULE PO SCH (21:58)
--- NOTE | 2017-03-28 22:00 | NUR ---
received to care, asleep, in bed. easy to awaken, but goes right back to sleep, so her medications were held. as of 2199, she appears to be asleep. no distress noted. will continue to monitor closely.
[2017-03-28] MEDS: HYDROCODONE/APAP 5-325MG TABLET PO PRN (23:49)
--- NOTE | 2017-03-28 23:50 | NUR ---
pt is now awake. bedtime medications were given, at this time.
[2017-03-29] MEDS: LORAZEPAM 1 MG TABLET PO PRN (01:39)
--- NOTE | 2017-03-29 01:39 | NUR ---
pt is awake and restless. intermittently pacing the hallway. easy to redirect. PRN ativan was given, and she was redirected back, to her room. no distress noted. will continue to monitor closely.
--- NOTE | 2017-03-29 02:00 | NUR ---
appears to be asleep. no distress noted.
[2017-03-29] MEDS: AMPICILLIN 500 MG CAPSULE PO SCH ×6 (06:00→23:43)
--- NOTE | 2017-03-29 06:00 | NUR ---
slpet 6.5 hours total. no distress noted.
[2017-03-29] MEDS: PANTOPRAZOLE SODIUM 40 MG TABLET.DR PO SCH ×2 (06:36→07:20)
[2017-03-29 07:27] LABS: BASOPHILS % (AUTO) 0.4 % (0.0-2.0); EOSINOPHILS # (AUTO) 0.1 K/uL (0.0-0.7); EOSINOPHILS % (AUTO) 2.2 % (0.0-7.0); HEMATOCRIT 30.7 % (37-47); HEMOGLOBIN 10.7 G/DL (12.0-16.0); LYMPHOCYTES # (AUTO) 1.6 K/UL (0.8-4.8); LYMPHOCYTES % (AUTO) 42.7 % (20.5-51.5); MEAN CORPUSCULAR HEMOGLOBIN 31.5 UUG (27.0-31.0); MEAN CORPUSCULAR HGB CONC 35 g/dL (32.0-37.0); MEAN CORPUSCULAR VOLUME 90.8 FL (81.0-99.0); MONOCYTES # (AUTO) 0.4 K/UL (0.1-1.30); MONOCYTES % (AUTO) 10.4 % (0.0-11.0); NEUTROPHILS # (AUTO) 1.6 K/UL (1.8-8.9); NEUTROPHILS % (AUTO) 44.3 % (38.5-71.5); PLATELET COUNT (AUTO) 166 K/UL (150-450); RED BLOOD CELL COUNT(AUTO) 3.38 MIL/UL (4.2-5.4); WHITE BLOOD COUNT (AUTO) 3.7 K/UL (4.0-11.2)
[2017-03-29 07:30] VITALS: BP 123/59
[2017-03-29 07:34] LABS: ALANINE AMINOTRANSFERASE 16 U/L (14-59); ALKALINE PHOSPHATASE 81 U/L (50-136); ASPARTATE AMINOTRANSFERASE 12 U/L (15-37); BILIRUBIN,TOTAL 0.2 mg/dL (0.2-1.0); CARBON DIOXIDE 29 mmol/L (21-32); CHLORIDE 92 mmol/L (98-107); CREATININE 0.6 mg/dL (0.6-1.3); GLUCOSE 89 mg/dL (74-106); MAGNESIUM 1.9 mg/dL (1.8-2.4); POTASSIUM 4.4 mmol/L (3.5-5.1); TOTAL PROTEIN, SERUM 6.5 g/dL (6.4-8.2); UREA NITROGEN, BLOOD 20 mg/dL (7-18); VALPROIC ACID 61 ug/mL (50-100)
[2017-03-29] MEDS: FERROUS SULFATE 325 MG TABEC PO SCH (09:11)
[2017-03-29] MEDS: CALCIUM CARB/VITAMIN D 500MG-200UNITS TABLET PO SCH ×2 (09:11→17:40)
[2017-03-29] MEDS: DIVALPROEX SPRINKLE 125 MG CAP.SPRINK PO SCH (09:11)
[2017-03-29] MEDS: QUETIAPINE FUMARATE 100 MG TABLET PO SCH ×3 (09:11→17:40)
[2017-03-29] MEDS: METOPROLOL TARTRATE 25 MG TABLET PO SCH ×2 (09:13→20:35)
[2017-03-29] MEDS: CYANOCOBALAMIN 1,000 MCG TABLET PO SCH (09:13)
[2017-03-29] MEDS: ASPIRIN 81 MG TAB.CHEW PO SCH (09:13)
[2017-03-29] MEDS: DOCUSATE SODIUM 100 MG CAPSULE PO SCH ×2 (09:14→20:35)
[2017-03-29] MEDS: LISINOPRIL 20 MG TABLET PO SCH (09:14)
--- NOTE | 2017-03-29 10:41 | NUR ---
RE LAB LEVELS: NOTIFIED DR ROGEL OF NA 125, CL 92. STATES HE WILL ASK NEPHROLOGY TO SEE PT.
[2017-03-29] MEDS: SODIUM CHLORIDE 1,000 MG TABLET PO SCH (14:13)
[2017-03-29 16:03] VITALS: BP 123/66
[2017-03-29 20:21] VITALS: BP 119/61
[2017-03-29] MEDS: MIRTAZAPINE 15 MG TABLET PO SCH (20:35)
[2017-03-29] MEDS: SIMVASTATIN 10 MG TABLET PO SCH (20:35)
[2017-03-30] MEDS: AMPICILLIN 500 MG CAPSULE PO SCH ×3 (06:17→17:01)
[2017-03-30] MEDS: PANTOPRAZOLE SODIUM 40 MG TABLET.DR PO SCH (06:17)
[2017-03-30 07:30] VITALS: BP 149/51
[2017-03-30 08:06] LABS: CARBON DIOXIDE 31 mmol/L (21-32); CHLORIDE 95 mmol/L (98-107); CREATININE 0.6 mg/dL (0.6-1.3); GLUCOSE 96 mg/dL (74-106); POTASSIUM 3.9 mmol/L (3.5-5.1); UREA NITROGEN, BLOOD 21 mg/dL (7-18)
[2017-03-30 08:16] LABS: THYROID STIMULATING HORMONE 2.064 mIU/mL (0.358-3.740)
[2017-03-30] MEDS: CALCIUM CARB/VITAMIN D 500MG-200UNITS TABLET PO SCH ×2 (08:47→16:26)
[2017-03-30] MEDS: ASPIRIN 81 MG TAB.CHEW PO SCH (08:48)
[2017-03-30] MEDS: FERROUS SULFATE 325 MG TABEC PO SCH (08:48)
[2017-03-30] MEDS: CYANOCOBALAMIN 1,000 MCG TABLET PO SCH (08:48)
[2017-03-30] MEDS: METOPROLOL TARTRATE 25 MG TABLET PO SCH ×2 (08:48→20:06)
[2017-03-30] MEDS: DOCUSATE SODIUM 100 MG CAPSULE PO SCH ×2 (08:48→20:06)
[2017-03-30] MEDS: QUETIAPINE FUMARATE 100 MG TABLET PO SCH ×3 (08:48→16:26)
[2017-03-30] MEDS: LISINOPRIL 20 MG TABLET PO SCH (08:48)
[2017-03-30] MEDS: SODIUM CHLORIDE 1,000 MG TABLET PO SCH (08:49)
[2017-03-30 09:26] LABS: URIC ACID 4.1 mg/dL (2.6-6.0)
[2017-03-30 15:00] VITALS: BP 103/58
--- NOTE | 2017-03-30 17:35 | NUR ---
Pt labs came in and pt has Escherichia Coli > 100,000 CFU/ML, Strep Agalactiae Group B > 100,000 CFU/ML. E.Coli is ampicillin, AMP/SUL, Cefazolin, levofloxacin resistant.Dr. Pittman was notified of the lab results. Waiting for doctor to respond.
[2017-03-30] MEDS: MIRTAZAPINE 15 MG TABLET PO SCH (20:06)
[2017-03-30] MEDS: SIMVASTATIN 10 MG TABLET PO SCH (20:06)
[2017-03-30] MEDS: SULFAMETH/TRIMETH 800/160 MG TABLET PO SCH (20:06)
[2017-03-30 20:15] VITALS: BP 109/67
[2017-03-31] MEDS: PANTOPRAZOLE SODIUM 40 MG TABLET.DR PO SCH (06:21)
[2017-03-31 07:30] VITALS: BP 144/89
[2017-03-31] MEDS: ASPIRIN 81 MG TAB.CHEW PO SCH (09:07)
[2017-03-31] MEDS: FERROUS SULFATE 325 MG TABEC PO SCH (09:07)
[2017-03-31] MEDS: QUETIAPINE FUMARATE 100 MG TABLET PO SCH ×3 (09:07→16:54)
[2017-03-31] MEDS: CALCIUM CARB/VITAMIN D 500MG-200UNITS TABLET PO SCH ×2 (09:07→16:54)
[2017-03-31] MEDS: CYANOCOBALAMIN 1,000 MCG TABLET PO SCH (09:08)
[2017-03-31] MEDS: DOCUSATE SODIUM 100 MG CAPSULE PO SCH ×2 (09:08→20:09)
[2017-03-31] MEDS: SODIUM CHLORIDE 1,000 MG TABLET PO SCH (09:09)
[2017-03-31] MEDS: SULFAMETH/TRIMETH 800/160 MG TABLET PO SCH ×2 (09:17→20:09)
[2017-03-31] MEDS: LISINOPRIL 20 MG TABLET PO SCH (09:26)
[2017-03-31] MEDS: METOPROLOL TARTRATE 25 MG TABLET PO SCH ×2 (09:30→20:10)
[2017-03-31 15:00] VITALS: BP 117/54
[2017-03-31] MEDS: MIRTAZAPINE 15 MG TABLET PO SCH (20:09)
[2017-03-31] MEDS: SIMVASTATIN 10 MG TABLET PO SCH (20:09)
[2017-03-31 20:54] VITALS: BP 128/65
[2017-04-01] MEDS: PANTOPRAZOLE SODIUM 40 MG TABLET.DR PO SCH (06:24)
[2017-04-01 07:30] VITALS: BP 130/94
[2017-04-01] MEDS: FERROUS SULFATE 325 MG TABEC PO SCH (08:47)
[2017-04-01] MEDS: QUETIAPINE FUMARATE 100 MG TABLET PO SCH ×3 (08:47→16:37)
[2017-04-01] MEDS: CYANOCOBALAMIN 1,000 MCG TABLET PO SCH (08:48)
[2017-04-01] MEDS: CALCIUM CARB/VITAMIN D 500MG-200UNITS TABLET PO SCH ×2 (08:49→16:37)
[2017-04-01] MEDS: METOPROLOL TARTRATE 25 MG TABLET PO SCH ×2 (08:49→20:12)
[2017-04-01] MEDS: ASPIRIN 81 MG TAB.CHEW PO SCH (08:50)
[2017-04-01] MEDS: DOCUSATE SODIUM 100 MG CAPSULE PO SCH ×2 (08:50→20:11)
[2017-04-01] MEDS: SODIUM CHLORIDE 1,000 MG TABLET PO SCH (08:50)
[2017-04-01] MEDS: LISINOPRIL 20 MG TABLET PO SCH (08:50)
[2017-04-01] MEDS: SULFAMETH/TRIMETH 800/160 MG TABLET PO SCH ×2 (08:50→20:11)
[2017-04-01 15:18] VITALS: BP 102/54
[2017-04-01 20:05] VITALS: BP 115/70
[2017-04-01] MEDS: MIRTAZAPINE 15 MG TABLET PO SCH (20:11)
[2017-04-01] MEDS: SIMVASTATIN 10 MG TABLET PO SCH (20:11)
[2017-04-02] MEDS: PANTOPRAZOLE SODIUM 40 MG TABLET.DR PO SCH (06:24)
[2017-04-02] MEDS: LORAZEPAM 1 MG TABLET PO PRN (06:33)
--- NOTE | 2017-04-02 06:34 | NUR ---
PT WOKE UP EARLY THIS MORNING,STRIPPED HER BED THEN PUT ALL LINENS PLUS HER SLIPPERS ON THE FLOOR IN FRONT OF HER ROOM,HYSTERICAL LAUGHING FOR NO REASON AND STAFF FOUND HER SOAKING HER RIGHT FOOT IN THE TOILET BOWL.STAFF GOT HER OUT OF THERE THEN GAVE HER AN ADVICE NOT TO DO SO.WILL ENDORSE TO DAY SHIFT TO CONTINUE TO MONITOR
[2017-04-02 07:22] LABS: CARBON DIOXIDE 28 mmol/L (21-32); CHLORIDE 99 mmol/L (98-107); CREATININE 0.9 mg/dL (0.6-1.3); GLUCOSE 102 mg/dL (74-106); MAGNESIUM 1.8 mg/dL (1.8-2.4); PHOSPHOROUS 3.3 mg/dL (2.5-4.9); POTASSIUM 3.7 mmol/L (3.5-5.1); UREA NITROGEN, BLOOD 24 mg/dL (7-18)
[2017-04-02 07:30] VITALS: BP 92/51
[2017-04-02] MEDS: ASPIRIN 81 MG TAB.CHEW PO SCH (08:24)
[2017-04-02] MEDS: CALCIUM CARB/VITAMIN D 500MG-200UNITS TABLET PO SCH ×2 (08:24→16:43)
[2017-04-02] MEDS: QUETIAPINE FUMARATE 100 MG TABLET PO SCH ×3 (08:24→16:43)
[2017-04-02] MEDS: DOCUSATE SODIUM 100 MG CAPSULE PO SCH ×2 (08:24→20:39)
[2017-04-02] MEDS: FERROUS SULFATE 325 MG TABEC PO SCH (08:24)
[2017-04-02] MEDS: CYANOCOBALAMIN 1,000 MCG TABLET PO SCH (08:24)
[2017-04-02] MEDS: SODIUM CHLORIDE 1,000 MG TABLET PO SCH (08:25)
[2017-04-02] MEDS: SULFAMETH/TRIMETH 800/160 MG TABLET PO SCH ×2 (08:27→20:39)
[2017-04-02] MEDS: METOPROLOL TARTRATE 25 MG TABLET PO SCH ×2 (09:00→20:40)
[2017-04-02] MEDS: LISINOPRIL 20 MG TABLET PO SCH (09:00)
[2017-04-02] MEDS ORDERED: IV NORMAL SALINE 1000 ML BAG IV ONE ×2 (11:00→11:15)
[2017-04-02] MEDS ORDERED: IV NS 1000 ML 1,000 ML IV ONE (11:15)
[2017-04-02 11:19] LABS: BASOPHILS # (AUTO) 0.1 K/uL (0.0-8.0); BASOPHILS % (AUTO) 1.1 % (0.0-2.0); EOSINOPHILS % (AUTO) 0.2 % (0.0-7.0); HEMATOCRIT 35.2 % (31.2-41.9); LYMPHOCYTES # (AUTO) 0.7 K/uL (20.0-40.0); LYMPHOCYTES % (AUTO) 14.8 % (20.5-51.5); MEAN CORPUSCULAR HEMOGLOBIN 31.1 uug (24.7-32.8); MEAN CORPUSCULAR HGB CONC 34 g/dL (32.3-35.6); MEAN CORPUSCULAR VOLUME 91.6 fL (75.5-95.3); MONOCYTES # (AUTO) 0.4 K/uL (2.0-10.0); MONOCYTES % (AUTO) 9.1 % (0.0-11.0); NEUTROPHILS # (AUTO) 3.4 K/uL (1.8-8.9); NEUTROPHILS % (AUTO) 74.8 % (38.5-71.5); PLATELET COUNT (AUTO) 173 K/uL (179-408); RED BLOOD CELL COUNT(AUTO) 3.84 MIL/uL (3.63-4.92); WHITE BLOOD COUNT (AUTO) 4.5 K/uL (3.8-11.8)
[2017-04-02 11:57] LABS: BILIRUBIN,DIRECT 0.1 mg/dL (0.0-0.2); BILIRUBIN,TOTAL 0.4 mg/dL (0.2-1.0); TOTAL PROTEIN, SERUM 7.5 g/dL (6.4-8.2)
[2017-04-02] MEDS: GABAPENTIN 100 MG CAPSULE PO SCH ×3 (12:19→16:43)
--- NOTE | 2017-04-02 14:17 | NUR ---
1300 dose not adm., too closed to the first dose.
[2017-04-02 15:28] VITALS: BP 122/68
[2017-04-02 20:00] VITALS: BP 120/64
[2017-04-02] MEDS: MIRTAZAPINE 15 MG TABLET PO SCH (20:39)
[2017-04-02] MEDS: SIMVASTATIN 10 MG TABLET PO SCH (20:40)
[2017-04-02] MEDS ORDERED: TEMAZEPAM 7.5 MG CAPSULE PO PRN (20:45)
[2017-04-02] MEDS ORDERED: LORAZEPAM 0.5 MG TABLET PO PRN (20:45)
--- NOTE | 2017-04-02 22:00 | NUR ---
received to care, talking to self, pleasant upon approach. compliant with medications and staff direction. as of 2199, she remains awake, wandering about. easy to redirect. will continue to monitor closely.
--- NOTE | 2017-04-02 22:41 | NUR ---
PRN restoril given for insomnia
[2017-04-03] VITALS (7 sets, daily range): BP systolic 78–128; BP diastolic 42–72
--- NOTE | 2017-04-03 01:00 | NUR ---
remains awake and restless. difficult to redirect. wanders into male peers rooms. hoarding belongings. placed in izzy chair and close observation at nurses station.
--- NOTE | 2017-04-03 02:56 | NUR ---
remains agitated. PRN ativan was given.
--- NOTE | 2017-04-03 04:00 | NUR ---
appears to be asleep. no distress noted.
--- NOTE | 2017-04-03 06:00 | NUR ---
slept 1.5 hours total. had several episodes of loose bowel movements. assisted with AM care, and shower. currently in bed, asleep. no distress noted.
[2017-04-03] MEDS: PANTOPRAZOLE SODIUM 40 MG TABLET.DR PO SCH (06:15)
[2017-04-03] MEDS: ASPIRIN 81 MG TAB.CHEW PO SCH (09:29)
[2017-04-03] MEDS: FERROUS SULFATE 325 MG TABEC PO SCH (09:31)
[2017-04-03] MEDS: DOCUSATE SODIUM 100 MG CAPSULE PO SCH ×2 (09:31→20:27)
[2017-04-03] MEDS: METOPROLOL TARTRATE 25 MG TABLET PO SCH ×2 (09:31→21:00)
[2017-04-03] MEDS: SULFAMETH/TRIMETH 800/160 MG TABLET PO SCH ×2 (09:31→21:00)
[2017-04-03] MEDS: SODIUM CHLORIDE 1,000 MG TABLET PO SCH (09:32)
[2017-04-03] MEDS: GABAPENTIN 100 MG CAPSULE PO SCH ×3 (09:32→17:30)
[2017-04-03] MEDS: CALCIUM CARB/VITAMIN D 500MG-200UNITS TABLET PO SCH ×2 (09:32→17:00)
[2017-04-03] MEDS: LISINOPRIL 20 MG TABLET PO SCH (09:33)
[2017-04-03] MEDS: QUETIAPINE FUMARATE 100 MG TABLET PO SCH ×3 (09:33→17:30)
[2017-04-03] MEDS: CYANOCOBALAMIN 1,000 MCG TABLET PO SCH (09:33)
[2017-04-03 10:31] LABS: BASOPHILS % (AUTO) 0.9 % (0.0-2.0); EOSINOPHILS # (AUTO) 0.1 K/uL (0.0-0.7); EOSINOPHILS % (AUTO) 1.6 % (0.0-7.0); HEMATOCRIT 30.2 % (37-47); HEMOGLOBIN 10.4 G/DL (12.0-16.0); LYMPHOCYTES % (AUTO) 29.2 % (20.5-51.5); MEAN CORPUSCULAR HEMOGLOBIN 31.5 UUG (27.0-31.0); MEAN CORPUSCULAR HGB CONC 35 g/dL (32.0-37.0); MEAN CORPUSCULAR VOLUME 91.1 FL (81.0-99.0); MONOCYTES # (AUTO) 0.6 K/UL (0.1-1.30); MONOCYTES % (AUTO) 17.7 % (0.0-11.0); NEUTROPHILS # (AUTO) 1.6 K/UL (1.8-8.9); NEUTROPHILS % (AUTO) 50.6 % (38.5-71.5); PLATELET COUNT (AUTO) 148 K/UL (150-450); RED BLOOD CELL COUNT(AUTO) 3.32 MIL/UL (4.2-5.4); WHITE BLOOD COUNT (AUTO) 3.4 K/UL (4.0-11.2)
[2017-04-03 10:56] LABS: ALANINE AMINOTRANSFERASE 23 U/L (14-59); ALKALINE PHOSPHATASE 91 U/L (50-136); ASPARTATE AMINOTRANSFERASE 25 U/L (15-37); BILIRUBIN,TOTAL 0.2 mg/dL (0.2-1.0); CARBON DIOXIDE 23 mmol/L (21-32); CHLORIDE 100 mmol/L (98-107); CREATININE 0.9 mg/dL (0.6-1.3); GLUCOSE 83 mg/dL (74-106); POTASSIUM 4.3 mmol/L (3.5-5.1); UREA NITROGEN, BLOOD 32 mg/dL (7-18)
[2017-04-03] MEDS ORDERED: TEMAZEPAM 7.5 MG CAPSULE PO PRN (11:15)
[2017-04-03] MEDS ORDERED: HALOPERIDOL 0.5 MG TABLET PO PRN (11:15)
[2017-04-03] MEDS: HALOPERIDOL 1 MG TABLET PO SCH ×2 (11:28→17:30)
[2017-04-03] MEDS: BENZTROPINE MESYLATE 0.5 MG TABLET PO SCH ×2 (11:28→17:00)
[2017-04-03] MEDS ORDERED: HALOPERIDOL 1 MG TABLET PO PRN (11:30)
[2017-04-03 11:44] LABS: LYMPHOCYTES % (MANUAL) 30 % (20-40); NEUTROPHILS % (MANUAL) 63 % (42-75)
[2017-04-03 11:45] LABS: EOSINOPHILS % (MANUAL) 2 % (0-8); MONOCYTES % (MANUAL) 5 % (2-10)
--- NOTE | 2017-04-03 20:50 | NUR ---
VITAL RECHECKED, BP 85/42, HR 74. PT C/O DIZZINESS, PT ASSISTED BACK TO BED AND PUT IN TRENDELENBURG POSITION, DR DEVINE NOTIFIED, NO FEVER NOTED, PER DR DEVINE, RECHECK BP IN MINUTES, WILL CONTINUE TO MONITOR CLOSELY.
[2017-04-03] MEDS: MIRTAZAPINE 15 MG TABLET PO SCH (21:00)
[2017-04-03] MEDS: SIMVASTATIN 10 MG TABLET PO SCH (21:00)
--- NOTE | 2017-04-03 21:04 | NUR ---
PT RECEIVED IN THE DAY ROOM SNACKING ON SALTINE CRACKERS AND APPLE JUICE, WATCHING TV WITH PEERS, DENIES PAIN. AT 1945, VITAL SIGNS CHECKED. BP 89/45 (LEFT ARM), HR 84, R 18, SAO2 95%. BP 91/41 (RIGHT ARM).
--- NOTE | 2017-04-03 22:00 | NUR ---
b/p is now 90/48, hr 69
--- NOTE | 2017-04-03 23:15 | NUR ---
b/p is now 93/48, hr 72. continues to sleep. bed remains in Trendelenburg position.
[2017-04-04 01:00] VITALS: BP 127/64
--- NOTE | 2017-04-04 01:00 | NUR ---
b/p is now 127/64, hr 76. continues to sleep, but responds verbally. bed returned to normal position. will continue to monitor closely.
[2017-04-04 03:15] VITALS: BP 99/53
--- NOTE | 2017-04-04 03:15 | NUR ---
b/p is now 99/53, hr 78. continues to sleep, but continues to respond verbally. no distress noted. will continue to monitor closely.
--- NOTE | 2017-04-04 06:00 | NUR ---
slept 9 hours, total.
[2017-04-04 06:30] VITALS: BP 135/60
--- NOTE | 2017-04-04 06:30 | NUR ---
b/p is now 135/60. assisted to the bathroom, and placed in izzy chair. no distress noted.
[2017-04-04] MEDS: PANTOPRAZOLE SODIUM 40 MG TABLET.DR PO SCH (06:41)
[2017-04-04 07:15] LABS: *BILIRUBIN,URIN NEGATIVE (NEGATIVE); *BLOOD, URINE NEGATIVE (NEGATIVE); *CLARITY,URINE CLEAR (CLEAR); *COLOR,URINE YELLOW (YELLOW); *KETONES,URINE NEGATIVE (NEGATIVE); *PROTEIN,URINE NEGATIVE (NEGATIVE); *UROBILINOGEN,URINE 0.2 E.U./dl (NORMAL); LEUKOCYTE ESTERASE ,URINE NEGATIVE (NEGATIVE); NITRITE, URINE NEGATIVE (NEGATIVE); UGLUCOSE NEGATIVE (NEGATIVE)
[2017-04-04 07:22] LABS: BACTERIA,URINE FEW /HPF (NONE SEEN); RBC,URINE 0-3 /HPF (0-3); SQUAMOUS EPITHELIAL CELL,UR MODERATE /HPF (NONE SEEN)
[2017-04-04 08:01] VITALS: BP 124/42
[2017-04-04] MEDS: CYANOCOBALAMIN 1,000 MCG TABLET PO SCH (08:33)
[2017-04-04] MEDS: GABAPENTIN 100 MG CAPSULE PO SCH (08:33)
[2017-04-04] MEDS: CALCIUM CARB/VITAMIN D 500MG-200UNITS TABLET PO SCH ×2 (08:33→18:07)
[2017-04-04] MEDS: SULFAMETH/TRIMETH 800/160 MG TABLET PO SCH ×2 (08:33→20:12)
[2017-04-04] MEDS: DOCUSATE SODIUM 100 MG CAPSULE PO SCH ×2 (08:33→20:12)
[2017-04-04] MEDS: HALOPERIDOL 1 MG TABLET PO SCH ×3 (08:34→18:07)
[2017-04-04] MEDS: ASPIRIN 81 MG TAB.CHEW PO SCH (08:34)
[2017-04-04] MEDS: BENZTROPINE MESYLATE 0.5 MG TABLET PO SCH ×3 (08:34→18:07)
[2017-04-04] MEDS: FERROUS SULFATE 325 MG TABEC PO SCH (08:34)
[2017-04-04] MEDS: LISINOPRIL 20 MG TABLET PO SCH (10:14)
[2017-04-04] MEDS: QUETIAPINE FUMARATE 100 MG TABLET PO SCH ×3 (10:14→18:07)
[2017-04-04] MEDS: GABAPENTIN 300 MG CAPSULE PO SCH ×2 (13:21→18:07)
[2017-04-04 15:46] VITALS: BP 121/55
[2017-04-04] MEDS: SIMVASTATIN 10 MG TABLET PO SCH (20:12)
[2017-04-04 20:27] VITALS: BP 112/60
[2017-04-04] MEDS ORDERED: MIRTAZAPINE 15 MG TABLET PO SCH (21:00)
[2017-04-05] MEDS: PANTOPRAZOLE SODIUM 40 MG TABLET.DR PO SCH (06:18)
--- NOTE | 2017-04-05 06:35 | NUR ---
GPS: Pt.refused her Protonix 40mg at this time despite explanation of importance. Pt.is angry,easily irritable at this time. Re-directed prn. Safe environment provided. Discouraged from hoarding stuff. Will continue to monitor behavior for further escalation.
[2017-04-05 07:30] VITALS: BP 118/58
[2017-04-05] MEDS: CALCIUM CARB/VITAMIN D 500MG-200UNITS TABLET PO SCH (08:06)
[2017-04-05] MEDS: HALOPERIDOL 1 MG TABLET PO SCH ×2 (08:06→13:53)
[2017-04-05] MEDS: SULFAMETH/TRIMETH 800/160 MG TABLET PO SCH (08:06)
[2017-04-05] MEDS: FERROUS SULFATE 325 MG TABEC PO SCH (08:06)
[2017-04-05] MEDS: GABAPENTIN 300 MG CAPSULE PO SCH ×2 (08:06→13:53)
[2017-04-05] MEDS: ASPIRIN 81 MG TAB.CHEW PO SCH (08:06)
[2017-04-05] MEDS: BENZTROPINE MESYLATE 0.5 MG TABLET PO SCH ×2 (08:06→13:53)
[2017-04-05] MEDS: DOCUSATE SODIUM 100 MG CAPSULE PO SCH (08:06)
[2017-04-05] MEDS: CYANOCOBALAMIN 1,000 MCG TABLET PO SCH (08:07)
[2017-04-05] MEDS: QUETIAPINE FUMARATE 100 MG TABLET PO SCH ×2 (08:07→13:53)
[2017-04-05 10:10] VITALS: BP 118/58
[2017-04-05] MEDS: LISINOPRIL 20 MG TABLET PO SCH (10:10)
--- NOTE | 2017-04-05 10:28 | NUR ---
DC Note: Patient will be discharged to [facility] [[address] [place] [address]; ] via ambulance at 1:00 pm. Spoke with Caitlyn at the facility who states that they are ready to accept the patient today. Patients daughterArminda [phone] is aware and agreeable with discharge plans. Patient is aware and agreeable with discharge plans. Patient will follow-up at the facility with Dr. Faustin (Fishing Floats Assembler) and Dr. Abebe (Psychiatrist).
--- NOTE | 2017-04-05 16:41 | NUR ---
1200 CALLED REPORT TO [facility] SPOKE TO ROBBIE XIAO RN WHO WILL ADMIT THE PATIENT. RN INFORMED MEDICATIONS TO CONTINUE UPON D/C TO HOSP., DIAGNOSIS, PATIENT BEHAVIOR . 1600 PATIENT DISCHARGED, PICKED UP AMBULANCE AND TRANSPORTED TO [facility], PATIENT ALERT JOYCE SI/HI, NO HALLUCINATIONS/ NO DELUSION.
== END 2017-04-05 16:00 | DRG 885 ==
LOC: ER 15:23 → GPS 17:30
PROVIDERS: ADMIT Psychiatry & Neurology Psychosomatic Medicine; ATTEND Psychiatry & Neurology Psychosomatic Medicine
DX: F25.0 Schizoaffective disorder, bipolar type (principal); I11.0 Hypertensive heart disease with heart failure; E87.8 Other disorders of electrolyte and fluid balance, not elsewhere classified; D68.59 Other primary thrombophilia; F03.91 Unspecified dementia, unspecified severity, with behavioral disturbance; E87.1 Hypo-osmolality and hyponatremia; I50.32 Chronic diastolic (congestive) heart failure; F23 Brief psychotic disorder; N39.0 Urinary tract infection, site not specified; D63.8 Anemia in other chronic diseases classified elsewhere; B96.20 Unspecified Escherichia coli [E. coli] as the cause of diseases classified elsewhere; E78.5 Hyperlipidemia, unspecified; I25.10 Atherosclerotic heart disease of native coronary artery without angina pectoris; K21.9 Gastro-esophageal reflux disease without esophagitis; M19.90 Unspecified osteoarthritis, unspecified site; F31.9 Bipolar disorder, unspecified; M47.894 Other spondylosis, thoracic region; D50.9 Iron deficiency anemia, unspecified; M85.80 Other specified disorders of bone density and structure, unspecified site; G47.00 Insomnia, unspecified; Z79.899 Other long term (current) drug therapy
CPT/HCPCS: 36415; 70030-TC; 70450; 71010; 80164; 83605; 83735; 84100; 84300; 84443; 84550; 85025; 85730; 87040; 87077; 87086; 93005; G0480; G0480-TC; J0290; J7030

== ENCOUNTER 2019-07-01 19:05 | Inpatient (IN) | payer MEDICARE, OTHER ==
[~2019-07-01] VITALS: Ht 157.5 cm; Wt 54.0 kg
[2019-07-01 20:20] LABS: BASOPHILS % (AUTO) 0.3 % (0.0-2.0); HEMATOCRIT 32.6 % (31.2-41.9); HEMOGLOBIN 11.1 g/dL (10.9-14.3); LYMPHOCYTES # (AUTO) 1.3 K/uL (20.0-40.0); LYMPHOCYTES % (AUTO) 25.8 % (20.5-51.5); MEAN CORPUSCULAR HEMOGLOBIN 31.7 uug (24.7-32.8); MEAN CORPUSCULAR HGB CONC 34 g/dL (32.3-35.6); MEAN CORPUSCULAR VOLUME 93.3 fL (75.5-95.3); MONOCYTES # (AUTO) 0.5 K/uL (2.0-10.0); MONOCYTES % (AUTO) 9.8 % (0.0-11.0); NEUTROPHILS # (AUTO) 3.1 K/uL (1.8-8.9); NEUTROPHILS % (AUTO) 63.1 % (38.5-71.5); PLATELET COUNT (AUTO) 185 K/uL (179-408); WHITE BLOOD COUNT (AUTO) 4.9 K/uL (3.8-11.8)
--- NOTE | 2019-07-01 20:24 | NUR ---
CALL FOR BED DONE 137 B
--- NOTE | 2019-07-01 20:24 | NUR ---
Medically cleared by Dr Manzo. Called Mil Mcgrath from [facility] to eval patient. ETA 30mins.
[2019-07-01 20:29] LABS: CARBON DIOXIDE 28 mmol/L (21-32); CHLORIDE 105 mmol/L (98-107); CREATININE 0.7 mg/dL (0.6-1.3); GLUCOSE 97 mg/dL (74-106); POTASSIUM 3.2 mmol/L (3.5-5.1); UREA NITROGEN, BLOOD 13 mg/dL (7-18)
[2019-07-01 20:35] LABS: ACETAMINOPHEN 5.7 ug/mL (10-30); ALANINE AMINOTRANSFERASE 32 U/L (14-59); ALKALINE PHOSPHATASE 95 U/L (50-136); ASPARTATE AMINOTRANSFERASE 36 U/L (15-37); BILIRUBIN,DIRECT 0.1 mg/dL (0.0-0.2); BILIRUBIN,TOTAL 0.3 mg/dL (0.2-1.0); CREATINE KINASE, TOTAL 530 U/L (26-192); TOTAL PROTEIN, SERUM 6.6 g/dL (6.4-8.2)
[2019-07-01 20:39] LABS: ETHANOL < 3 MG/DL (0-0)
[2019-07-01 20:43] LABS: THYROID STIMULATING HORMONE 1.437 mIU/mL (0.358-3.740)
--- NOTE | 2019-07-01 20:58 | NUR ---
SALVATORE LOWE AT BEDSIDE
--- NOTE | 2019-07-01 21:45 | NUR ---
OK TO ADMIT UNDER DR MOONEY/ SHERWIN 7980 HOLD INITIATED BY SALVATORE LOWE DX: PSYCHOSIS / GD AND HARM TO OTHERS BELONGINGS LIST DONE
--- NOTE | 2019-07-01 21:51 | NUR ---
GIVEN SBAR AND HAND OFF TO BRITTNEY RN PT WILL BE ADMITTED TO RM 137B (U)
[2019-07-01] MEDS ORDERED: POTASSIUM CHLORIDE 20 MEQ TAB.PRT.SR PO ONE (22:00)
[2019-07-01 22:15] VITALS: BP 159/72
--- NOTE | 2019-07-01 22:19 | NUR ---
TRANSPORTED BY [facility] VIA WHEELCHAIR
[2019-07-01 22:21] LABS: *BILIRUBIN,URIN NEGATIVE (NEGATIVE); *BLOOD, URINE NEGATIVE (NEGATIVE); *COLOR,URINE YELLOW (YELLOW); *KETONES,URINE NEGATIVE (NEGATIVE); LEUKOCYTE ESTERASE ,URINE 1+ (NEGATIVE); NITRITE, URINE NEGATIVE (NEGATIVE); UGLUCOSE NEGATIVE (NEGATIVE)
[2019-07-01 22:26] LABS: *CLARITY,URINE SLIGHTLY HAZY (CLEAR)
[2019-07-01 22:27] LABS: MUCUS,URINE FEW /LPF (0-FEW); RBC,URINE 0-3 /HPF (0-3); SQUAMOUS EPITHELIAL CELL,UR MODERATE /HPF (NONE SEEN)
[2019-07-01] MEDS ORDERED: LORAZEPAM 0.5 MG TABLET PO PRN (22:30)
[2019-07-01] MEDS ORDERED: ZOLPIDEM 5 MG TABLET PO PRN (22:30)
[2019-07-01] MEDS ORDERED: MAG HYDROX/AL HYDROX/SIMETH 30 ML LIQUID UDC PO PRN (22:30)
[2019-07-01] MEDS ORDERED: TEMAZEPAM 7.5 MG CAPSULE PO PRN (22:30)
[2019-07-01] MEDS ORDERED: BLOOD SUGAR DIAGNOSTIC 1 EACH STRIP VI ONE (22:30)
[2019-07-01] MEDS ORDERED: MAGNESIUM HYDROXIDE 30 ML LIQUID UDC PO PRN (22:30)
[2019-07-01 22:41] LABS: *AMPHETAMINE, URINE NEGATIVE (NEGATIVE); *BARBITURATE, URINE NEGATIVE (NEGATIVE); *CANNABINOID, URINE NEGATIVE (NEGATIVE); *COCCAINE, URINE NEGATIVE (NEGATIVE); *OPIATE, URINE NEGATIVE (NEGATIVE); *PHENCYCLIDINE SCREEN,URINE NEGATIVE (NEGATIVE)
[2019-07-01] MEDS ORDERED: ACETAMINOPHEN 325 MG TABLET PO PRN (22:45)
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
[2019-07-02] MEDS: LORAZEPAM 1 MG TABLET PO PRN (04:11)
[2019-07-02] MEDS: ACETAMINOPHEN 325 MG TABLET PO PRN (04:11)
[2019-07-02] MEDS: PANTOPRAZOLE SODIUM 40 MG TABLET.DR PO SCH (06:15)
[2019-07-02 07:30] VITALS: BP 121/73
[2019-07-02] MEDS: CYANOCOBALAMIN 1,000 MCG TABLET PO SCH (08:02)
[2019-07-02] MEDS: OMEGA-3 FATTY ACIDS/FISH OIL CAPSULE PO SCH (08:03)
[2019-07-02] MEDS: DOCUSATE SODIUM 250 MG CAPSULE PO SCH (08:03)
[2019-07-02] MEDS: LISINOPRIL 10 MG TABLET PO SCH ×2 (08:03→20:13)
[2019-07-02] MEDS: CHOLECALCIFEROL 1,000 UNIT TABLET PO SCH (08:03)
[2019-07-02] MEDS: ASPIRIN 81 MG TAB.CHEW PO SCH (08:03)
[2019-07-02] MEDS ORDERED: Medication Not On Formulary EA (Cranberry Extract (Cranberry) 405 MG) PO SCH (09:00)
[2019-07-02] MEDS: HALOPERIDOL LACTATE 10 MG/5 ML ORAL SOLUTION UDC PO SCH ×4 (09:20→20:11)
[2019-07-02] MEDS: BENZTROPINE MESYLATE 0.5 MG TABLET PO SCH ×3 (09:20→16:51)
[2019-07-02] MEDS: GABAPENTIN 300 MG CAPSULE PO SCH ×3 (09:20→16:52)
[2019-07-02 09:49] LABS: BILIRUBIN,TOTAL 0.5 mg/dL (0.2-1.0); CREATININE 0.7 mg/dL (0.6-1.3); POTASSIUM 3.5 mmol/L (3.5-5.1); TOTAL PROTEIN, SERUM 6.8 g/dL (6.4-8.2)
--- NOTE | 2019-07-02 12:22 | NUR ---
Social Work Note/Initial Discharge Planning: Pt currently resides at [address] [place] [id number]; ([phone]) called [place] [facility]. SW will contact the assisted living to verify if pt is welcomed upon discharge. SHOLA will work with the pt and the MD regarding appropriate discharge planning. SW will form a safe and proper discharge.
--- NOTE | 2019-07-02 12:28 | NUR ---
Square Dance Caller Note/Family Contact: probation worker contacted patients son Martínez ([phone]) and the number does not exist. This contract technical writer also contacted patients daughter Arminda ([phone]) and left a voicemail.
--- NOTE | 2019-07-02 12:30 | NUR ---
Social Work Note/Coordination of Care: personal support worker called Verito admin coordinator of the assisted living ([phone]) and was unable to reach and voicemail was full. This poem writer will contact attempt again.
[2019-07-02] MEDS: CEphaleXIN 500 MG CAPSULE PO SCH ×2 (14:29→21:00)
[2019-07-02 16:00] VITALS: BP 151/71
[2019-07-02] MEDS: SIMVASTATIN 10 MG TABLET PO SCH (20:11)
[2019-07-02] MEDS: MELATONIN 3 MG TABLET PO SCH (20:11)
[2019-07-02 21:24] VITALS: BP 127/79
[2019-07-03] MEDS: ACETAMINOPHEN 325 MG TABLET PO PRN (02:08)
[2019-07-03] MEDS: LORAZEPAM 1 MG TABLET PO PRN (02:08)
[2019-07-03] MEDS: CEphaleXIN 500 MG CAPSULE PO SCH ×3 (06:25→21:01)
[2019-07-03] MEDS: PANTOPRAZOLE SODIUM 40 MG TABLET.DR PO SCH (06:25)
[2019-07-03 07:30] VITALS: BP 177/92
[2019-07-03] MEDS: CHOLECALCIFEROL 1,000 UNIT TABLET PO SCH (09:01)
[2019-07-03] MEDS: ASPIRIN 81 MG TAB.CHEW PO SCH (09:01)
[2019-07-03] MEDS: GABAPENTIN 300 MG CAPSULE PO SCH ×3 (09:02→16:21)
[2019-07-03] MEDS: LISINOPRIL 10 MG TABLET PO SCH ×2 (09:02→20:17)
[2019-07-03] MEDS: BENZTROPINE MESYLATE 0.5 MG TABLET PO SCH ×3 (09:02→16:22)
[2019-07-03] MEDS: OMEGA-3 FATTY ACIDS/FISH OIL CAPSULE PO SCH (09:02)
[2019-07-03] MEDS: DOCUSATE SODIUM 250 MG CAPSULE PO SCH (09:03)
[2019-07-03] MEDS: HALOPERIDOL LACTATE 10 MG/5 ML ORAL SOLUTION UDC PO SCH ×4 (09:03→20:19)
[2019-07-03] MEDS: CYANOCOBALAMIN 1,000 MCG TABLET PO SCH (09:03)
[2019-07-03 16:33] VITALS: BP 174/81
[2019-07-03] MEDS: SIMVASTATIN 10 MG TABLET PO SCH (20:17)
[2019-07-03] MEDS: MELATONIN 3 MG TABLET PO SCH (20:17)
[2019-07-03 20:28] VITALS: BP 146/61
[2019-07-04 04:10] LABS: *GC NAA Negative (Negative); *TRIC.VAG. NAA Negative (Negative)
[2019-07-04] MEDS: CEphaleXIN 500 MG CAPSULE PO SCH ×3 (05:42→21:12)
[2019-07-04] MEDS: PANTOPRAZOLE SODIUM 40 MG TABLET.DR PO SCH (06:09)
--- NOTE | 2019-07-04 06:28 | NUR ---
Patient slept well for a total of 7.30 hours. No complaints were made. Compliant with medications. Assisted with needs. Kept safe and comfortable.
[2019-07-04] MEDS: ASPIRIN 81 MG TAB.CHEW PO SCH (08:06)
[2019-07-04] MEDS: GABAPENTIN 300 MG CAPSULE PO SCH ×3 (08:06→17:41)
[2019-07-04] MEDS: CHOLECALCIFEROL 1,000 UNIT TABLET PO SCH (08:06)
[2019-07-04] MEDS: DOCUSATE SODIUM 250 MG CAPSULE PO SCH (08:06)
[2019-07-04] MEDS: BENZTROPINE MESYLATE 0.5 MG TABLET PO SCH ×3 (08:06→17:40)
[2019-07-04] MEDS: CYANOCOBALAMIN 1,000 MCG TABLET PO SCH (08:06)
[2019-07-04] MEDS: OMEGA-3 FATTY ACIDS/FISH OIL CAPSULE PO SCH (08:06)
[2019-07-04] MEDS: HALOPERIDOL LACTATE 10 MG/5 ML ORAL SOLUTION UDC PO SCH ×4 (08:06→20:34)
[2019-07-04] MEDS: LISINOPRIL 10 MG TABLET PO SCH (08:07)
[2019-07-04 08:30] VITALS: BP 207/98
[2019-07-04 10:55] VITALS: BP 183/80
[2019-07-04] MEDS ORDERED: CLONIDINE HCL 0.1 MG TABLET PO PRN (11:45)
[2019-07-04 12:38] VITALS: BP 163/85
--- NOTE | 2019-07-04 14:44 | NUR ---
Social Work Note/Individual Therapy: vacuum worker met with patient for brief counseling. Patient expressed that she does not want to go back to her assisted living and would want this worker to find her an alternative placement such as a SNF. vacuum worker provided her with emotional support and actively listened. SW expressed that this tag writer will work with her and the psychiatrist to make this a smooth process for patient.
[2019-07-04 15:09] VITALS: BP 140/69
[2019-07-04 20:25] VITALS: BP_SYST 140; BP_SYST 98; BP_DIAS 54; BP_DIAS 69
[2019-07-04] MEDS: LISINOPRIL 20 MG TABLET PO SCH (20:31)
[2019-07-04] MEDS: MELATONIN 3 MG TABLET PO SCH (20:31)
[2019-07-04] MEDS: SIMVASTATIN 10 MG TABLET PO SCH (20:32)
[2019-07-04] MEDS ORDERED: LISINOPRIL 10 MG TABLET PO SCH (21:00)
[2019-07-05] MEDS: LORAZEPAM 1 MG TABLET PO PRN (02:58)
[2019-07-05] MEDS: CEphaleXIN 500 MG CAPSULE PO SCH ×3 (05:53→22:01)
[2019-07-05] MEDS: PANTOPRAZOLE SODIUM 40 MG TABLET.DR PO SCH (06:40)
[2019-07-05 07:30] VITALS: BP 158/67
[2019-07-05] MEDS: LISINOPRIL 20 MG TABLET PO SCH ×2 (08:17→20:00)
[2019-07-05] MEDS: GABAPENTIN 300 MG CAPSULE PO SCH ×3 (08:17→16:17)
[2019-07-05] MEDS: DOCUSATE SODIUM 250 MG CAPSULE PO SCH (08:17)
[2019-07-05] MEDS: CYANOCOBALAMIN 1,000 MCG TABLET PO SCH (08:17)
[2019-07-05] MEDS: BENZTROPINE MESYLATE 0.5 MG TABLET PO SCH ×3 (08:17→16:17)
[2019-07-05] MEDS: ASPIRIN 81 MG TAB.CHEW PO SCH (08:17)
[2019-07-05] MEDS: OMEGA-3 FATTY ACIDS/FISH OIL CAPSULE PO SCH (08:17)
[2019-07-05] MEDS: CHOLECALCIFEROL 1,000 UNIT TABLET PO SCH (08:17)
[2019-07-05] MEDS: HALOPERIDOL LACTATE 10 MG/5 ML ORAL SOLUTION UDC PO SCH ×4 (08:18→20:00)
[2019-07-05 16:00] VITALS: BP 112/64
[2019-07-05] MEDS: SIMVASTATIN 10 MG TABLET PO SCH (20:00)
[2019-07-05] MEDS: MELATONIN 3 MG TABLET PO SCH (20:00)
[2019-07-05 20:21] VITALS: BP 132/62
[2019-07-06] MEDS: ACETAMINOPHEN 325 MG TABLET PO PRN (05:09)
[2019-07-06] MEDS: CEphaleXIN 500 MG CAPSULE PO SCH ×3 (05:44→22:10)
[2019-07-06] MEDS: PANTOPRAZOLE SODIUM 40 MG TABLET.DR PO SCH (06:00)
[2019-07-06 07:30] VITALS: BP 177/90
[2019-07-06] MEDS: OMEGA-3 FATTY ACIDS/FISH OIL CAPSULE PO SCH (08:36)
[2019-07-06] MEDS: CYANOCOBALAMIN 1,000 MCG TABLET PO SCH (08:36)
[2019-07-06] MEDS: CHOLECALCIFEROL 1,000 UNIT TABLET PO SCH (08:36)
[2019-07-06] MEDS: DOCUSATE SODIUM 250 MG CAPSULE PO SCH (08:36)
[2019-07-06] MEDS: ASPIRIN 81 MG TAB.CHEW PO SCH (08:36)
[2019-07-06] MEDS: BENZTROPINE MESYLATE 0.5 MG TABLET PO SCH ×3 (08:36→16:31)
[2019-07-06] MEDS: HALOPERIDOL LACTATE 10 MG/5 ML ORAL SOLUTION UDC PO SCH ×4 (08:37→20:01)
[2019-07-06] MEDS: LISINOPRIL 20 MG TABLET PO SCH ×2 (08:37→20:03)
[2019-07-06] MEDS: GABAPENTIN 300 MG CAPSULE PO SCH ×3 (08:38→16:31)
[2019-07-06 16:00] VITALS: BP 150/58
[2019-07-06 20:00] VITALS: BP 156/75
[2019-07-06] MEDS: SIMVASTATIN 10 MG TABLET PO SCH (20:01)
[2019-07-06] MEDS: MELATONIN 3 MG TABLET PO SCH (20:02)
[2019-07-07] MEDS: CEphaleXIN 500 MG CAPSULE PO SCH (06:08)
[2019-07-07] MEDS: PANTOPRAZOLE SODIUM 40 MG TABLET.DR PO SCH (06:09)
[2019-07-07 07:30] VITALS: BP 135/83
[2019-07-07] MEDS: DOCUSATE SODIUM 250 MG CAPSULE PO SCH (08:59)
[2019-07-07] MEDS: ASPIRIN 81 MG TAB.CHEW PO SCH (08:59)
[2019-07-07] MEDS: GABAPENTIN 300 MG CAPSULE PO SCH ×3 (08:59→17:16)
[2019-07-07] MEDS: OMEGA-3 FATTY ACIDS/FISH OIL CAPSULE PO SCH (08:59)
[2019-07-07] MEDS: BENZTROPINE MESYLATE 0.5 MG TABLET PO SCH ×3 (08:59→17:16)
[2019-07-07] MEDS: CHOLECALCIFEROL 1,000 UNIT TABLET PO SCH (09:00)
[2019-07-07] MEDS: LISINOPRIL 20 MG TABLET PO SCH ×2 (09:00→20:35)
[2019-07-07] MEDS: CYANOCOBALAMIN 1,000 MCG TABLET PO SCH (09:00)
--- NOTE | 2019-07-07 09:01 | NUR ---
Social Work Note/Coordination of Care: artificial marble worker faxed patients H & P psychiatric note and progress notes to TAWNYA from [facility] ([phone]) and will review patients clinicals.
[2019-07-07] MEDS: HALOPERIDOL LACTATE 10 MG/5 ML ORAL SOLUTION UDC PO SCH ×3 (09:08→17:17)
--- NOTE | 2019-07-07 10:19 | NUR ---
Social Work Note/Discharge Plan: laceworker was contacted by TAWNYA from [facility] ([phone]) who stated that patient is accepted.
--- NOTE | 2019-07-07 13:10 | NUR ---
GPS: CALLED AND NOTIFIED MICROFILM MACHINE OPERATOR MEDICAL BILLING SPECIALIST FOR THE CONSULT WAITING FOR REPLY , WILL FOLLOW UP
[2019-07-07 15:15] VITALS: BP 138/74
[2019-07-07 20:00] VITALS: BP 122/58
[2019-07-07] MEDS: MELATONIN 3 MG TABLET PO SCH (20:34)
[2019-07-07] MEDS: SIMVASTATIN 10 MG TABLET PO SCH (20:35)
[2019-07-08] MEDS: LORAZEPAM 1 MG TABLET PO PRN (03:49)
[2019-07-08] MEDS: ACETAMINOPHEN 325 MG TABLET PO PRN (03:49)
[2019-07-08] MEDS: PANTOPRAZOLE SODIUM 40 MG TABLET.DR PO SCH (06:23)
[2019-07-08 07:30] VITALS: BP 126/61
[2019-07-08] MEDS: CHOLECALCIFEROL 1,000 UNIT TABLET PO SCH (08:28)
[2019-07-08] MEDS: ASPIRIN 81 MG TAB.CHEW PO SCH (08:28)
[2019-07-08] MEDS: CYANOCOBALAMIN 1,000 MCG TABLET PO SCH (08:28)
[2019-07-08] MEDS: OMEGA-3 FATTY ACIDS/FISH OIL CAPSULE PO SCH (08:28)
[2019-07-08] MEDS: HALOPERIDOL LACTATE 10 MG/5 ML ORAL SOLUTION UDC PO SCH ×3 (08:28→16:43)
[2019-07-08] MEDS: BENZTROPINE MESYLATE 0.5 MG TABLET PO SCH ×3 (08:28→16:43)
[2019-07-08] MEDS: GABAPENTIN 300 MG CAPSULE PO SCH ×3 (08:28→16:43)
[2019-07-08] MEDS: DOCUSATE SODIUM 250 MG CAPSULE PO SCH (08:28)
[2019-07-08] MEDS: LISINOPRIL 20 MG TABLET PO SCH ×2 (08:29→20:19)
[2019-07-08 17:02] VITALS: BP 109/55
[2019-07-08 19:54] VITALS: BP 117/61
[2019-07-08] MEDS: MELATONIN 3 MG TABLET PO SCH (20:19)
[2019-07-08] MEDS: SIMVASTATIN 10 MG TABLET PO SCH (20:19)
--- NOTE | 2019-07-09 00:03 | NUR ---
RECEIVED PATIENT IN HER ROOM.DENIES SI/HI. COMPLIANT WITH HER MEDICATIONS.WAKES UP AND PACES THE HALLWAY FOR A WHILE AND GOES BACK TO SLEEP.VISUAL CHECKS MADE ON HER FOR SAFETY. WILL CONTINUE TO MONITOR.
[2019-07-09] MEDS: PANTOPRAZOLE SODIUM 40 MG TABLET.DR PO SCH (06:40)
--- NOTE | 2019-07-09 06:44 | NUR ---
SLEPT ON AND OFF FOR 07;15HRS
[2019-07-09 07:30] VITALS: BP 144/68
[2019-07-09] MEDS: HALOPERIDOL LACTATE 10 MG/5 ML ORAL SOLUTION UDC PO SCH ×3 (08:43→17:32)
[2019-07-09] MEDS: OMEGA-3 FATTY ACIDS/FISH OIL CAPSULE PO SCH (08:44)
[2019-07-09] MEDS: GABAPENTIN 300 MG CAPSULE PO SCH ×3 (08:44→17:32)
[2019-07-09] MEDS: DOCUSATE SODIUM 250 MG CAPSULE PO SCH (08:44)
[2019-07-09] MEDS: LISINOPRIL 20 MG TABLET PO SCH ×2 (08:44→20:31)
[2019-07-09] MEDS: BENZTROPINE MESYLATE 0.5 MG TABLET PO SCH ×3 (08:44→17:32)
[2019-07-09] MEDS: ASPIRIN 81 MG TAB.CHEW PO SCH (08:44)
[2019-07-09] MEDS: CYANOCOBALAMIN 1,000 MCG TABLET PO SCH (08:45)
[2019-07-09] MEDS: CHOLECALCIFEROL 1,000 UNIT TABLET PO SCH (08:45)
--- NOTE | 2019-07-09 12:25 | NUR ---
Social Work Note/Individual Therapy: iron worker apprentice met with patient for brief counseling to help address patients presenting problem. Patient is unable to engage in a meaningful conversation and was resistant to accepting support from this loan underwriter.
[2019-07-09 16:00] VITALS: BP 118/48
[2019-07-09 20:00] VITALS: BP 119/60
[2019-07-09] MEDS: SIMVASTATIN 10 MG TABLET PO SCH (20:28)
[2019-07-09] MEDS: MELATONIN 3 MG TABLET PO SCH (20:28)
[2019-07-10] MEDS: LORAZEPAM 1 MG TABLET PO PRN (04:15)
[2019-07-10] MEDS: PANTOPRAZOLE SODIUM 40 MG TABLET.DR PO SCH (06:20)
[2019-07-10 07:30] VITALS: BP 165/85
--- NOTE | 2019-07-10 08:03 | NUR ---
Social Work Note/Firearms Report: Inserter Promotional Item completed and submitted a [facility] firearms report for 5250 grave disability certification. A copy of report has been placed in patient chart.
--- NOTE | 2019-07-10 08:10 | NUR ---
Social Work Note/Discharge: Patient will be discharged to senior care facility to [facility] [place] [address]; ) via Ambulance transportation at 12pm. Literature Teacher spoke with TAWNYA, [Back Winder at [facility]; [phone]), who stated patient will be accepted at facility today. Patient is alert and oriented x3-4, and is not able to plan for self-care at this time, but is willing to accept care provided for her at the facility. Patient denies any suicidal or homicidal ideations. Patient is aware and agreeable with discharge plans. Patient does not have any family members. Patient will continue to follow-up with her Psychiatrist Dr. Nuno and Almond Blancher Operator Dr. Finn at [facility]. Patient will follow-up at the center. Patient presents with euthymic mood and congruent affect.
[2019-07-10 08:19] VITALS: BP 165/85
[2019-07-10] MEDS: DOCUSATE SODIUM 250 MG CAPSULE PO SCH (08:19)
[2019-07-10] MEDS: ASPIRIN 81 MG TAB.CHEW PO SCH (08:19)
[2019-07-10] MEDS: LISINOPRIL 20 MG TABLET PO SCH (08:19)
[2019-07-10] MEDS: GABAPENTIN 300 MG CAPSULE PO SCH (08:19)
[2019-07-10] MEDS: OMEGA-3 FATTY ACIDS/FISH OIL CAPSULE PO SCH (08:20)
[2019-07-10] MEDS: CYANOCOBALAMIN 1,000 MCG TABLET PO SCH (08:20)
[2019-07-10] MEDS: CHOLECALCIFEROL 1,000 UNIT TABLET PO SCH (08:20)
[2019-07-10] MEDS: BENZTROPINE MESYLATE 0.5 MG TABLET PO SCH (08:20)
[2019-07-10] MEDS: HALOPERIDOL LACTATE 10 MG/5 ML ORAL SOLUTION UDC PO SCH (08:20)
--- NOTE | 2019-07-10 12:37 | NUR ---
Patient discharged to [facility]. Report called to '[facility]". Belongings sent with patient. The 5150 is d/cd, VS are stable. Patient verbalized understanding of discharge instructions and the importance of medication compliance. No acute distress or issues noted.
== END 2019-07-10 12:20 | DRG 885 ==
LOC: ER 19:06 → GPS 22:01
PROVIDERS: ADMIT Psychiatry & Neurology Psychiatry; ATTEND Registered Nurse
DX: F25.0 Schizoaffective disorder, bipolar type (principal); I11.0 Hypertensive heart disease with heart failure; B95.1 Streptococcus, group B, as the cause of diseases classified elsewhere; N39.0 Urinary tract infection, site not specified; F03.91 Unspecified dementia, unspecified severity, with behavioral disturbance; R45.850 Homicidal ideations; E87.6 Hypokalemia; G47.00 Insomnia, unspecified; E78.5 Hyperlipidemia, unspecified; K21.9 Gastro-esophageal reflux disease without esophagitis; M19.90 Unspecified osteoarthritis, unspecified site; R26.2 Difficulty in walking, not elsewhere classified; I50.9 Heart failure, unspecified
CPT/HCPCS: 36415; 80307; 84443; 85025; 87086; 87491; 87806; 93005; A4663; G0480; G0480-TC